=== PATIENT | female | born 1990 | race Caucasian/White ===

== ENCOUNTER 2023-09-21 16:09 | Outpatient (OUT) | payer OTHER, SELFPAY ==
[2023-09-21 17:17] LABS: HCG Quantitative 45248 mIU/mL
== END 2023-09-21 16:10 | disposition home or self-care (01) ==
PROVIDERS: PCP Family Medicine; Visit Provider Obstetrics & Gynecology
DX: N92.6 Irregular menstruation, unspecified (principal)
CPT/HCPCS: 36415; 84702

== ENCOUNTER 2023-09-23 08:57 | Outpatient (OUT) | payer OTHER, SELFPAY ==
--- NOTE | 2023-09-23 09:02 | US_ITS ---
[address] [address] Patient Name: LILIANA GO MRN: [id number] date: 1990 Sex: F Assigned Patient Location: [facility] Current Patient Location: [facility] Accession/Order Number: [id number] Exam Date: 09/23/2023 09:02 Report Date: 09/23/2023 10:34 At the request of: IVANIA RENEE Procedure: US OB <= 14 weeks fetus EXAMINATION: US OB <= 14 weeks fetus HISTORY: MISSED MENSES COMPARISON: No relevant comparison available. FINDINGS: Transabdominal images Dotson intrauterine gestation Gestational sac: Normal morphology, 5.04 cm 20 weeks 5 days CRL: 4.9 cm, 11 weeks 5 days Yolk sac: 4.5 mm Heart rate: 57 bpm The uterus is normal, anteverted, anteflexed The right ovary is normal. The left ovary is not visualized Clinical age: Unknown Ultrasound age: 11 weeks 5 days Ultrasound SHANELLE: 04/08/2024 US/US OB <= 14 weeks fetus IMPRESSION: Dotson intrauterine gestation measuring 11 weeks 5 days Electronically authenticated by: MICHEAL ZAPATA Date: 09/23/2023 10:34
== END 2023-09-23 08:58 | disposition home or self-care (01) ==
LOC: NOMS 08:58
PROVIDERS: PCP Family Medicine; Visit Provider Obstetrics & Gynecology
DX: Z34.91 Encounter for supervision of normal pregnancy, unspecified, first trimester (principal)
CPT/HCPCS: 76801

== ENCOUNTER 2023-11-09 20:05 | Outpatient (REF) | payer OTHER, SELFPAY | END 2023-11-09 20:06 | disposition home or self-care (01) | LOC: LAB 20:05 | PROVIDERS: PCP Family Medicine; Visit Provider Obstetrics & Gynecology | DX: Z01.419 Encounter for gynecological examination (general) (routine) without abnormal findings (principal) | CPT/HCPCS: 87624; 88175 ==

== ENCOUNTER 2023-12-04 15:11 | Outpatient (OUT) | payer OTHER, SELFPAY ==
--- NOTE | 2023-12-04 15:17 | US_ITS ---
[address] [address] Patient Name: LILIANA GO MRN: [id number] date: 1990 Sex: F Assigned Patient Location: [place] Current Patient Location: Accession/Order Number: [id number] Exam Date: 12/04/2023 15:20 Report Date: 12/07/2023 07:34 At the request of: IVANIA RENEE Procedure: US OB anatomy EXAMINATION: US OB anatomy, US OB cervical length HISTORY: ANATOMIC SURVEY Z36.89 COMPARISON: No relevant comparison available. TECHNIQUE: Transabdominal sonographic examination was performed for obstetrical and evaluation. FINDINGS: Number: 1 Heart Rate: 155.17 bpm H.B. /min Amniotic Fluid Volume: Subjectively normal position: Transverse presentation, variable lie Placental Location: Posterior. Grade 1. Cervix Length: 5.5 cm , closed Normal anatomy: Cerebellum, posterior fossa, nose, lips, orbits, four-chamber heart, RVOT, LVOT, diaphragm, stomach, kidneys, abdominal cord insertion, bladder, umbilical arteries, three-vessel cord, spine, extremities Suboptimal anatomy: Lateral ventricles BIOMETRY: BPD: 5.00 cm; 21 weeks 1 day; 16.60 % HC: 18.82 cm; 21 weeks 1 day; 9.60 % AC: 16.28 cm; 21 weeks 2 days; 22.50 % FL: 3.53 cm; 21 weeks 1 day; 15.60 % EFW:410.07 g; 13.30 %, 14 ounces FL/AC: 21.72 FL/BPD: 70.72 HC/AC: 1.16 GESTATIONAL AGE: Age by EDC: 22 weeks 0 days SHANELLE by EDC: 2024-04-08 Age by current US: 21 weeks 1 day SHANELLE by current US: 2024-04-14 US/US OB anatomy IMPRESSION: Suboptimal visualization of the lateral ventricles, otherwise normal anatomy scan Closed cervix measuring 5.5 cm in length *Reference: [facility] Practice Guideline for the performance of Obstetric Ultrasound Examinations, December 14, 2006. Electronically authenticated by: MICHEAL ZAPATA Date: 12/07/2023 07:34
--- OUTSIDE RECORDS SUMMARY | 2023-12-04 15:31 | XMS_ITS | CCD ---
Author Organization [facility] InformCounts include 234 beds at the [facility] Care Team Providers Care Product Safety Administrator Name Role Phone Lul Ocampo Unavailable KARNIIK ., DR WIGGINS Consulting Unavailabl e KARASIK ., DR WIGGINS Attending Unavailabl e MISC, DR MOSER Primary Care Unavailable KARASIK ., DR WIGGINS Admitting Unavailabl e KARASIK ., DR WIGGINS Consulting Unavailabl e KARASIK ., DR WIGGINS Attending Unavailabl e MISC, DR MOSER Primary Care Unavailable KARASIK ., DR WIGGINS Admitting Unavailabl e ZIEBER, DR PERLA Seaman Consulting Unavailable KARASIK ., DR WIGGINS Consulting Unavailabl e MISC, DR MOSER Primary Care Unavailable KARASIK ., DR WIGGINS Attending Unavailabl e KARASIK ., DR WIGGINS Admitting Unavailabl e KARASIK ., DR WIGGINS Attending Unavailabl e KARASIK ., DR WIGGINS Admitting Unavailabl e REQUEST, DR NONE LISTED Primary Care Unavaila ble KARASIK ., DR WIGGINS Consulting Unavailabl e KARASIK ., DR WIGGINS Attending Unavailabl e KARASIK ., DR WIGGINS Admitting Unavailabl e MISC, DR OMSER Primary Care Unavailable ZIEBER, DR PERLA Seaman Consulting Unavailable KARASIK ., DR WIGGINS Consulting Unavailabl e KARASIK ., DR WIGGINS Attending Unavailabl e KARASIK ., DR WIGGINS Admitting Unavailabl e MISC, DR MOSER Primary Care Unavailable JODI, DR MICHEAL Samuels Consulting Unavailable KARASIK ., DR WIGGINS Attending Unavailabl e KARASIK ., DR WIGGINS Admitting Unavailabl e MISC, DR MOSER Primary Care Unavailable KARASIK ., DR WIGGINS Consulting Unavailabl e JODI, DR MICHEAL Samuels Consulting Unavailable LONA JOVEL Admitting Unavailable REQUEST, DR NONE LISTED Primary Care Unavaila ble KARASIK ., DR WIGGINS Consulting UnavailLONA Murphy Attending Unavailable WEST, DR MICHEAL Samuels Consulting Unavailable LONA JOVEL Consulting Unavailable KARASIK ., DR WIGGNIS Attending Unavailabl e KARASIK ., DR WIGGINS Admitting Unavailabl e REQUEST, DR BUCKLEY LISTED Primary Care Unavaila ble KARASIK ., DR WIGGINS Consulting Unavailabl e YFN DYER Consulting Unavailable KARASIK ., DR WIGGINS Procedure Practitioner Kathy vailable KARASIK ., DR WIGGINS Consulting Unavailabl e MISC, DR MOSER Primary Care Unavailable KARASIK ., DR WIGGINS Attending Unavailabl e KARASIK ., DR WIGGINS Admitting Unavailabl e ZIEBER, DR PERLA Seaman Consulting Unavailable KARASIK ., DR WIGGINS Consulting Unavailabl e KARASIK ., DR WIGGINS Admitting Unavailabl e MISC, DR MOSER Primary Care Unavailable KARASIK ., DR WIGGINS Attending Unavailabl e KARASIK ., DR WIGGINS Consulting Unavailabl e KARASIK ., DR WIGGINS Admitting Unavailabl e KARASIK ., DR WIGGINS Attending Unavailabl e MISC, DR MOSER Primary Care Unavailable Daniel Comer DO Primary Care Provider YANICK BOLIVAR Attending Unavailab le SWATHI-NOSSEKYANICK Attending Unavailab ESTEFANI Fine Attending Unavailable SWATHI-NOSSEK, YANICK M Referring Unavailab le SWATHI-NOSSEK, YANICK M Attending Unavailab le SWATHI-NOSSEK, YANICK Milton Attending Unavailab le SWATHI-NOSSEK, YANICK M Attending Unavailab le IVANIA RENEE Attending Unavailable Allergies Allergy Classification Reported Allergen(s) Allergy Type Date of Onset Reaction(s) Facility (1 source) banana allergenic extract Drug Allergy hives [facility] Other (4 sources) Cat dander Drug allergy 03-17-2023 Unknown [facility] Other (1 source) Banana Extract Drug Allergy 03-16-2004 [facility] Repository (1 source) Latex Drug allergy (disorder) 03-16-2009 [facility] (1 source) kiwi Drug allergy (disorder) 03-16-2004 [facility]ository (3 sources) Banana Extract Drug Allergy 08-04-2019 Unknown [facility] (3 sources) Octacosanol Drug Allergy 08-04-2019 Unknown [facility] Medications Current Medications Medication Drug Class(es) Dates Sig (Normalized) Sig (Original) eszopiclone 2 mg oral tablet (3 sources) Start: 03-17-2023 eszopiclone (Lunesta) 2 MG tablet Indications: Insomnia, unspecified type Take 1 tablet (2 mg) by mouth as needed at bedtime for sleep Take immediately before bedtime 30 tablet 0 03/17/2023 Active hydrOXYzine pamoate 25 mg oral capsule (1 source) Antihistamine take 1 capsule by mouth every eight hours Vistaril 25 MG 1 capsule as needed Orally every 8 hrs Active norethindrone 0.35 mg oral tablet (3 sources) Start: 07-01-2022 take 1 tablet by mouth in the morning norethindrone (Micronor) 0.35 MG tablet Take 1 tablet by mouth in the morning. 0 07/01/2022 Active serdexmethylphen-de xmethylphenidate (Azstarys) 39.2-7.8 MG capsule (2 sources) Start: 04-29-2023 End: 05-29-2023 take 1 capsule by mouth in the morning serdexmethylphen-d exmethylphenidate (Azstarys) 39.2-7.8 MG capsule Indications: Attention deficit hyperactivity disorder (ADHD), predominantly inattentive type (CMS/HCC) Take 1 capsule by mouth in the morning. Do not crush, chew, or split.. 30 capsule 0 04/29/2023 05/29/2023 Active sertraline 25 mg oral tablet (6 sources) Serotonin Reuptake Inhibitor Start: 03-17-2023 End: 04-28-2024 take 1 tablet by mouth in the morning sertraline (Zoloft) 25 MG tablet Indications: Anxiety Take 1 tablet (25 mg) by mouth in the morning. 30 tablet 1 04/29/2023 04/28/2024 Active take 1 tablet by valeriy th every twenty-four hours Zoloft 25 MG 1 tablet Orally Once a day Active Problems Active Problems Problem Classification Problem Date Documented Date Episodic/Chronic Anxiety disorders (2 sources) Anxiety; Translations: [Anxiety disorder, unspecified] 04-29-2023 Chronic Attention-deficit, conduct, and disruptive behavior disorders (2 sources) Attention deficit hyperactivity disorder, predominantly inattentive type; Translations: [Attention-deficit hyperactivity disorder, predominantly inattentive type] 04-29-2023 Chronic Immunizations and screening for infectious disease (3 sources) Encounter for screening for human papillomavirus (HPV); Translations: [Encounter for screening for infections with a predominantly sexual mode of transmission] Onset: 10-25-2021 Episodic Menstrual disorders (4 sources) Irregular menstruation, unspecified; Translations: [IRREGULAR MENSTRUATION UNSPECIFIED] Onset: 10-24-2021 Chronic Other complications of ; puerperium affecting management of mother (1 source) Labor and delivery complicated by meconium in amniotic fluid; Translations: [LABOR AND DEL COMP MEC AMNIOTIC FLUID] Onset: 05-27-2022 Episodic Other complications of (4 sources) Other specified related conditions, third trimester; Translations: [OTH SPEC PREG RELATED COND 3RD TRI] Onset: 05-12-2022 Episodic Other nervous system disorders (1 source) Carpal tunnel syndrome of left wrist; Translations: [Carpal tunnel syndrome, left upper limb] Chronic Other nervous system disorders (1 source) Carpal tunnel syndrome, left upper limb; Translations: [Left carpal tunnel syndrome G56.02] Onset: 12-07-2020 Resolved: 12-07-2020 Chronic Other and delivery including normal (10 sources) Single live ; Translations: [Encounter for supervision of normal , unspecified, third trimester] Onset: 10-16-2021 Episodic Other screening for suspected conditions (not mental disorders or infectious disease) (9 sources) Encounter for screening for malignant neoplasm of cervix; Translations: [Encounter for other specified screening] Onset: 10-25-2021 Episodic Prolonged (4 sources) Post-term ; Translations: [POST-TERM ] Onset: 05-19-2022 Episodic Residual codes; unclassified (1 source) 41 weeks gestation of ; Translations: [41 WEEKS GESTATION OF ] Onset: 05-27-2022 Episodic Residual codes; unclassified (1 source) 40 weeks gestation of ; Translations: [40 WEEKS GESTATION OF ] Onset: 05-19-2022 Episodic Screening and history of mental health and substance abuse codes (1 source) Personal history of nicotine dependence; Translations: [PERSONAL HISTORY OF NICOTINE DEPEND] Onset: 05-27-2022 Episodic Past or Other Problems Problem Classification Problem Date Documented Date Episodic/Chronic Fracture of upper limb (1 source) Other extraarticular fracture of lower end of left radius, subsequent encounter for closed fracture with routine healing; Translations: [Other closed extra-articular fracture of distal end of left radius with routine healing, subsequent encounter S52.552D] Onset: 12-07-2020 Resolved: 12-07-2020 Episodic Fracture of upper limb (1 source) Other extraarticular fracture of lower end of right radius, subsequent encounter for closed fracture with routine healing; Translations: [Other closed extra-articular fracture of distal end of right radius with routine healing, subsequent encounter S52.551D] Onset: 12-07-2020 Resolved: 12-07-2020 Episodic Residual codes; unclassified (1 source) Other specified postprocedural states; Translations: [Other specified postprocedural states Z98.890] Onset: 12-07-2020 Resolved: 12-07-2020 Episodic Results Test Name Value Interpretation Reference Range Facility CBC AUTO DIFFon 05-20-2022 BASO # 0.0 103/ul Normal 0.0-0.1 [facility] Comment on above: Performed By: #### C BC #### [facility] [address] [place] [address] Dr. Helga Salazar Basophils/100 WBC (Bld) 0.2 % Normal 0.2-2.0 [facility] Comment on above: Performed By: #### C BC #### [facility] [address] [place] [address] Dr. Helga Salazar EO # 0.0 103/ul Normal 0.0-0.7 [facility] Comment on above: Performed By: #### C BC #### [facility] [address] [place] [address] Dr. Helga Salazar Eosinophils/100 WBC (Bld) 0.1 % Critically low 0.9-7.0 [facility] Comment on above: Performed By: #### C BC #### [facility] [address] [place] [address] Dr. Helga Salazar Erythrocyte distribution width (RBC) [Ratio] 16.0 % Critically high 11.0-15.0 [facility] Comment on above: Performed By: #### C BC #### [facility] [address] [place] [address] Dr. Helga Salazar Hematocrit (Bld) [Volume fraction] 30.1 % Critically low 36.0-48.0 [facility] Comment on above: Performed By: #### C BC #### [facility] [address] [place] [address] Dr. Helga Salazar Hemoglobin (Bld) [Mass/Vol] 10.0 g/dL Critically low 12.0-16.0 [facility] Comment on above: Performed By: #### C BC #### [facility] [address] [place] [address] Dr. Helga Salazar IG # 0.06 10e3/ul Critically high 0.00-0.03 [facility] Comment on above: Performed By: #### C BC #### [facility] [address] [place] [address] Dr. Helga Salazar IG % 0.5 % Normal 0.0-0.5 [facility] Comment on above: Performed By: #### C BC #### [facility] [address] [place] [address] Dr. Helga Salazar LYMPH # 1.2 103/ul Normal 1.2-3.8 [facility] Comment on above: Performed By: #### C BC #### [facility] [address] [place] [address] Dr. Helga Salazar Lymphocytes/100 WBC (Bld) 10.5 % Critically low 20.5-60.0 [facility] Comment on above: Performed By: #### C BC #### [facility] [address] [place] [address] Dr. Helga Salazar MANUAL DIFF REQ NO Normal [facility] Comment on above: Performed By: #### C BC #### [facility] [address] [place] [address] Dr. Helga Salazar MCH (RBC) [Entitic mass] 27.9 pg Normal 26.7-34.0 [facility] Comment on above: Performed By: #### C BC #### [facility] [address] [address] [address] Helga Salazar MCHC (RBC) [Mass/Vol] 33.2 g/dL Normal 29.9-35.2 [facility] Comment on above: Performed By: #### C BC #### [facility] [address] [place] [address] Dr. Helga Salazar MCV (RBC) [Entitic vol] 84.1 fL Normal 81.0-99.0 [facility] Comment on above: Performed By: #### C BC #### [facility] [address] [place] [address] Dr. Helga Salazar MONO # 0.9 103/ul Critically high 0.3-0.8 [facility] Comment on above: Performed By: #### C BC #### [facility] [address] [place] [address] Dr. Helga Salazar Monocytes/100 WBC (Bld) 8.1 % Normal 1.7-12.0 [facility] Comment on above: Performed By: #### C BC #### [facility] [address] [place] [address] Dr. Helga Salazar NEUT # 9.4 103/ul Critically high 1.4-6.5 [facility] [place] Comment on above: Performed By: #### C BC #### [facility] [address] [place] [address] Dr. Helga Salazar Neutrophils/100 WBC (Bld) 80.6 % Critically high 43.0-75.0 [facility] Comment on above: Performed By: #### C BC #### [facility] [address] [place] [address] Dr. Helga Salazar Platelet mean volume (Bld) [Entitic vol] 8.8 fL Critically low 9.5-13.5 [facility] Comment on above: Performed By: #### C BC #### [facility] [address] [place] [address] Dr. Helga Salazar PLT 206 103/ul Normal 150-450 [facility] Comment on above: Performed By: #### C BC #### [facility] [address] [place] [address] Dr. Helga Salazar RBC 3.58 106/ul Critically low 4.20-5.40 [facility] Comment on above: Performed By: #### C BC #### [facility] [address] [address] [address] Helga Salazar WBC 11.6 103/ul Critically high 4.0-11.0 [facility] Comment on above: Performed By: #### C BC #### [facility] [address] [place] [address] Dr. Helga Salazar CBC AUTO DIFFon 05-19-2022 BASO # 0.0 103/ul Normal 0.0-0.1 [facility] Comment on above: Performed By: #### A 1C #### [facility] [address] [place] [address] Dr. Helga Salazar Basophils/100 WBC (Bld) 0.2 % Normal 0.2-2.0 [facility] Comment on above: Performed By: #### A 1C #### [facility] [address] [place] [address] Dr. Helga Salazar EO # 0.0 103/ul Normal 0.0-0.7 [facility] Comment on above: Performed By: #### A 1C #### [facility] [address] [place] [address] Dr. Helga Salazar Eosinophils/100 WBC (Bld) 0.0 % Critically low 0.9-7.0 [facility] Comment on above: Performed By: #### A 1C #### [facility] [address] [place] [address] Dr. Helga Salazar Erythrocyte distribution width (RBC) [Ratio] 15.9 % Critically high 11.0-15.0 [facility] Comment on above: Performed By: #### A 1C #### [facility] [address] [place] [address] Dr. Helga Salazar Hematocrit (Bld) [Volume fraction] 33.7 % Critically low 36.0-48.0 [facility] Comment on above: Performed By: #### A 1C #### [facility] [address] [place] [address] Dr. Helga Salazar Hemoglobin (Bld) [Mass/Vol] 11.5 g/dL Critically low 12.0-16.0 [facility] Comment on above: Performed By: #### A 1C #### [facility] [address] [place] [address] Dr. Helga Salazar IG # 0.07 10e3/ul Critically high 0.00-0.03 [facility] Comment on above: Performed By: #### A 1C #### [facility] [address] [place] [address] Dr. Helga Salazar IG % 0.6 % Critically high 0.0-0.5 [facility] Comment on above: Performed By: #### A 1C #### [facility] [address] [place] [address] Dr. Helga Salazar LYMPH # 0.9 103/ul Critically low 1.2-3.8 [facility] Comment on above: Performed By: #### A 1C #### [facility] [address] [place] [address] Dr. Helga Salazar Lymphocytes/100 WBC (Bld) 8.1 % Critically low 20.5-60.0 [facility] Comment on above: Performed By: #### A 1C #### [facility] [address] [place] [address] Dr. Helga Salazar MANUAL DIFF REQ NO Normal [facility] Comment on above: Performed By: #### A 1C #### [facility] [address] [place] [address] Dr. Helga Salazar MCH (RBC) [Entitic mass] 28.3 pg Normal 26.7-34.0 [facility] Comment on above: Performed By: #### A 1C #### [facility] [address] [place] [address] Dr. Helga Salazar MCHC (RBC) [Mass/Vol] 34.1 g/dL Normal 29.9-35.2 [facility] Comment on above: Performed By: #### A 1C #### [facility] [address] [address] [address] Helga Salazar MCV (RBC) [Entitic vol] 82.8 fL Normal 81.0-99.0 [facility] Comment on above: Performed By: #### A 1C #### [facility] [address] [address] [address] Helga Salazar MONO # 0.6 103/ul Normal 0.3-0.8 [facility] Comment on above: Performed By: #### A 1C #### [facility] [address] [address] [address] Helga Salazar Monocytes/100 WBC (Bld) 5.6 % Normal 1.7-12.0 [facility] Comment on above: Performed By: #### A 1C #### [facility] [address] [place] [address] Dr. Helga Salazar NEUT # 9.7 103/ul Critically high 1.4-6.5 [facility] Comment on above: Performed By: #### A 1C #### [facility] [address] [place] [address] Dr. Helga Salazar Neutrophils/100 WBC (Bld) 85.5 % Critically high 43.0-75.0 [facility] Comment on above: Performed By: #### A 1C #### [facility] [address] [address] [address] Helga Salazar Platelet mean volume (Bld) [Entitic vol] 8.6 fL Critically low 9.5-13.5 [facility] Comment on above: Performed By: #### A 1C #### [facility] [address] [place] [address] Dr. Helga Salazar PLT 198 103/ul Normal 150-450 [facility] Comment on above: Performed By: #### A 1C #### [facility] [address] [place] [address] Dr. Helga Salazar RBC 4.07 106/ul Critically low 4.20-5.40 [facility] Comment on above: Performed By: #### A 1C #### [facility] [address] [address] [address] Helga Salazar WBC 11.4 103/ul Critically high 4.0-11.0 [facility] Comment on above: Performed By: #### A 1C #### [facility] [address] [place] [address] Dr. Helga Salazar DRUG SCREEN RAPID (URINE)on 05-19-2022 AMP Negative Normal NEGATIVE [facility] Comment on above: Performed By: #### D RUGRPD #### [facility] [address] [place] [address] Dr. Helga Salazar BAR Negative Normal NEGATIVE [facility] Comment on above: Performed By: #### D RUGRPD #### [facility] [address] [place] [address] Dr. Helga Salazar BUP Negative Normal NEGATIVE [facility] Comment on above: Performed By: #### D RUGRPD #### [facility] [address] [place] [address] Dr. Helga Salazar BZO Negative Normal NEGATIVE [facility] Comment on above: Performed By: #### D RUGRPD #### [facility] [address] [place] [address] Dr. Helga Salazar TONY Negative Normal NEGATIVE [facility] Comment on above: Performed By: #### D RUGRPD #### [facility] [address] [place] [address] Dr. Helga Salazar CUT-OFFS SEE BELOW Normal [facility] Comment on above: Result Comment: AMP (Amphetamine): 500ng/mL, BAR (Barbituates): 200 ng/mL, BZO (Benzodiazepines): 150 ng/mL, BUP (Buprenorphine): 10 ng/mL, TONY (Cocaine): 150 ng/mL, mAMP (Methamphetamine): 500 ng/mL, MTD (Methadone): 200 ng/mL, OPI (Opiates): 100 ng/mL, OXY (Oxycodone): 100 ng/mL, PCP (Phencyclidine): 25 ng/mL, PPX (Propoxyphene): 300 ng/mL, THC (Cannabinoids): 50 ng/mL, TCA (Trycyclic Antidepressants): 300 ng/mL Performed By: #### D RUGRPD #### [facility] [address] [place] [address] Dr. Helga Salazar DRUG CUT HEADER DRUG CLASS TEST SYSTEM CUT-OFF CONCENTRATIONS ARE FOLLOWS: Normal [facility] Comment on above: Performed By: #### D RUGRPD #### [facility] [address] [place] [address] Dr. Helga Salazar mAMP Negative Normal NEGATIVE [facility] Comment on above: Performed By: #### D RUGRPD #### [facility] [address] [place] [address] Dr. Helga Salazar MTD Negative Normal NEGATIVE [facility] Comment on above: Performed By: #### D RUGRPD #### [facility] [address] [place] [address] Dr. Helga Salazar OPI Negative Normal NEGATIVE [facility] Comment on above: Performed By: #### D RUGRPD #### [facility] [address] [place] [address] Dr. Helga Salazar OXY Negative Normal NEGATIVE [facility] Comment on above: Performed By: #### D RUGRPD #### [facility] [address] [place] [address] Dr. Helga Salazar PCP Negative Normal NEGATIVE [facility] Comment on above: Performed By: #### D RUGRPD #### [facility] [address] [place] [address] Dr. Helga Salazar PPX Negative Normal NEGATIVE [facility] Comment on above: Performed By: #### D RUGRPD #### [facility] [address] [place] [address] Dr. Helga Salazar TCA Negative Normal NEGATIVE [facility] Comment on above: Performed By: #### D RUGRPD #### [facility] [address] [place] [address] Dr. Helga Salazar THC Negative Normal NEGATIVE [facility] Comment on above: Performed By: #### D RUGRPD #### [facility] [address] [address] [address] Helga Salazar TYPE AND SCREENon 05-19-2022 TYPE AND SCREEN Negative Normal [facility] Comment on above: Performed By: #### T NS #### [facility] [address] [place] [address] Dr. Helga Salazar US PREG AMNIOTIC FLUID VOLUM Mor 05-17-2022 US PREG AMNIOTIC FLUID VOLUME EXAMINATION: US PREG AMNIOTIC FLUID VOLUME HISTORY: Post-term COMPARISON: No relevant comparison available. TECHNIQUE: Limited sonographic examination for amniotic fluid volume FINDINGS: position: Cephalic presentation, longitudinal lie Amniotic fluid volume: 18.3 cm, normal range 6.3 to 22.3 cm Largest fluid pocket: 4.7 cm Heart rate: 132 beats minute Gestational age: 40 weeks 5 days IMPRESSION: Amniotic fluid volume Electronically authenticated by: MICHEAL ZAPATA Date: 2022-05-17 18:25 Normal [facility] US PREG AMNIOTIC FLUID VOLUM Mor 05-15-2022 US PREG AMNIOTIC FLUID VOLUME EXAMINATION: US PREG AMNIOTIC FLUID VOLUME HISTORY: Post-term COMPARISON: No relevant comparison available. TECHNIQUE: Limited sonographic examination for amniotic fluid volume FINDINGS: position: Cephalic presentation, longitudinal lie Amniotic fluid volume: 14.2 cm, normal 6.3 to 23 cm Largest fluid pocket: 7.1 cm Heart rate: 124 beats minute Gestational age: 40 weeks 3 days IMPRESSION: Normal amniotic fluid volume Electronically authenticated by: MICHEAL ZAPATA Date: 2022-05-15 15:41 Normal [facility] US PREG BIOPHY W NON STRESSo n 05-13-2022 US PREG BIOPHY W NON STRESS EXAMINATION: US PREG BIOPHY W NON STRESS HISTORY: Post-term COMPARISON: No relevant comparison available. TECHNIQUE: Ultrasound biophysical profile was performed in the radiology department. FINDINGS: BREATHING MOVEMENTS: 2.0 GROSS BODY MOVEMENTS: 2.0 TONE: 2.0 QUALITATIVE AMNIOTIC FLUID VOLUME: 2.0 PRESENTATION: Cephalic HEART RATE: 130.4 bpm H.B./min AMNIOTIC FLUID VOLUME: 19.2 cm cm GESTATIONAL AGE: 40 weeks 1 days CONCLUSION: Total biophysical profile score: 8.0 Electronically authenticated by: MICHEAL ZAPATA Date: 2022-05-13 16:00 Normal [facility] US PREG BIOPHY W NON STRESSo n 05-12-2022 US PREG BIOPHY W NON STRESS EXAMINATION: US PREG BIOPHY W NON STRESS HISTORY: Patient currently COMPARISON: Ultrasound anatomy 12/25/2021 FINDINGS: BREATHING MOVEMENTS: 0.0 GROSS BODY MOVEMENTS: 2.0 TONE: 2.0 QUALITATIVE AMNIOTIC FLUID VOLUME: 2.0 PRESENTATION: Cephalic HEART RATE: 139.2 bpm bpm. AMNIOTIC FLUID VOLUME: 15.5 cm GESTATIONAL AGE: 40 weeks 0 days CONCLUSION: Total biophysical profile score 6.0. Electronically authenticated by: PERLA SALEH Date: 2022-05-12 16:16 Normal [facility] GROUP B STREP CULTUREon S. agalactiae Ag Ql (Unsp spec) Culture Observations: NEGATIVE FOR GROUP B STREPTOCOCCUS. Normal [facility] Comment on above: Performed By: #### C BC #### [facility] [address] [address] [address] Helga Salazar PAP ACOG PANEL 2: 30 to 65on 03-12-2022 . . Normal [facility] Comment on above: Result Comment: Perf ormed at: [facility] Performed By: #### [id number] #### [facility] [address] [address] [address] Helga Salazar Age Gdln ACOG Testing - [facility] [place] [facility] Comment on above: Performed By: #### [id number] #### [facility] [address] [address] [address] Helga Salazar DIAGNOSIS: Comment Normal [facility] Comment on above: Result Comment: NEGA TIVE FOR INTRAEPITHELIAL LESION OR MALIGNANCY. THIS SPECIMEN WAS RESCREENED PART OF OUR STUDENT ACCOUNTS MANAGER PROGRAM. Performed at: [facility] Performed By: #### [id number] #### [facility] [address] [address] [address] Helga Salazar HPV Aptima Negative Normal Negative [facility] Comment on above: Result Comment: This nucleic acid amplification test detects fourteen high-risk HPV types (16,18,31,33,35,39,45,51,52,56,58,59,66,68) without differentiation. Performed at: =G Performed By: #### [id number] #### [facility] [address] [address] [address] Helga Salazar HPV Genotype Reflex Comment Normal [facility] Comment on above: Result Comment: Crit jonatan not met, HPV Genotype not performed. Performed at: [facility] Performed By: #### [id number] #### [facility] [address] [place] [address] Dr. Helga Salazar Methodology: Comment Normal [facility] Comment on above: Result Comment: This liquid based ThinPrep(R) pap test was screened with the use of an image guided system. Performed at: [facility] Performed By: #### [id number] #### [facility] [address] [place] [address] Dr. Helga Salazar Note: Comment Normal [facility] Comment on above: Result Comment: The Pap smear is a screening test designed to aid in the detection of premalignant and malignant conditions of the uterine cervix. It is not a diagnostic procedure and should not be used as the sole means of detecting cervical cancer. Both false-positive and false-negative reports do occur. . Performed at: [facility] Performed By: #### [id number] #### [facility] [address] [place] [address] Dr. Helga Salazar Performed by: Comment Normal [facility] [place] [facility] Comment on above: Result Comment: Saji Ornelas, Upper Leather Sorter (ASCP) Performed at: [facility] Performed By: #### [id number] #### [facility] [address] [place] [address] Dr. Helga Salazar QC reviewed by: Comment Normal [facility] Comment on above: Result Comment: Jayson Mcgovern Sr, Upper Leather Sorter (ASCP) Performed at: [facility] Performed By: #### [id number] #### [facility] [address] [place] [address] Dr. Helga Salazar Specimen adequacy: Comment Normal [facility] Comment on above: Result Comment: Sati sfactory for evaluation. No endocervical component is identified. The absence of an endocervical component was confirmed by an additional screening evaluation. Performed at: [facility] Performed By: #### [id number] #### [facility] [address] [place] [address] Dr. Helga Salazar CHLAMYDIA/GONOCOCCUS SABRINA (SW AB/URINE/PAPon 03-05-2022 Chlamydia trachomatis, SABRINA Negative Normal Negative [facility] Comment on above: Performed By: #### C T/NGNA #### [facility] [address] [place] [address] Dr. Helga Salazar Neisseria gonorrhoeae, SABRINA Negative Normal Negative [facility] Comment on above: Performed By: #### C T/NGNA #### [facility] [address] [place] [address] Dr. Helga Salazar CBC AUTO DIFFon 02-20-2022 BASO # 0.0 103/ul Normal 0.0-0.1 [facility] Comment on above: Performed By: #### C BC #### [facility] [address] [place] [address] Dr. Helga Salazar Basophils/100 WBC (Bld) 0.2 % Normal 0.2-2.0 [facility] Comment on above: Performed By: #### C BC #### [facility] [address] [place] [address] Dr. Helga Salazar EO # 0.0 103/ul Normal 0.0-0.7 [facility] Comment on above: Performed By: #### C BC #### [facility] [address] [place] [address] Dr. Helga Salazar Eosinophils/100 WBC (Bld) 0.3 % Critically low 0.9-7.0 [facility] Comment on above: Performed By: #### C BC #### [facility] [address] [place] [address] Dr. Helag Salazar Erythrocyte distribution width (RBC) [Ratio] 12.7 % Normal 11.0-15.0 [facility] Comment on above: Performed By: #### C BC #### [facility] [address] [place] [address] Dr. Helga Salazar Hematocrit (Bld) [Volume fraction] 31.4 % Critically low 36.0-48.0 [facility] Comment on above: Performed By: #### C BC #### [facility] [address] [place] [address] Dr. Helga Salazar Hemoglobin (Bld) [Mass/Vol] 10.1 g/dL Critically low 12.0-16.0 [facility] Comment on above: Performed By: #### C BC #### [facility] [address] [place] [address] Dr. Helga Salazar IG # 0.06 10e3/ul Critically high 0.00-0.03 [facility] Comment on above: Performed By: #### C BC #### [facility] [address] [place] [address] Dr. Helga Salazar IG % 0.6 % Critically high 0.0-0.5 [facility] Comment on above: Performed By: #### C BC #### [facility] [address] [place] [address] Dr. Helga Salazar LYMPH # 0.9 103/ul Critically low 1.2-3.8 [facility] Comment on above: Performed By: #### C BC #### [facility] [address] [place] [address] Dr. Helga Salazar Lymphocytes/100 WBC (Bld) 9.4 % Critically low 20.5-60.0 [facility] Comment on above: Performed By: #### C BC #### [facility] [address] [place] [address] Dr. Helga Salazar MANUAL DIFF REQ NO Normal [facility] Comment on above: Performed By: #### C BC #### [facility] [address] [place] [address] Dr. Helga Salazar MCH (RBC) [Entitic mass] 28.1 pg Normal 26.7-34.0 [facility] Comment on above: Performed By: #### C BC #### [facility] [address] [place] [address] Dr. Helga Salazar MCHC (RBC) [Mass/Vol] 32.2 g/dL Normal 29.9-35.2 [facility] Comment on above: Performed By: #### C BC #### [facility] [address] [address] [address] Helga Salazar MCV (RBC) [Entitic vol] 87.5 fL Normal 81.0-99.0 [facility] Comment on above: Performed By: #### C BC #### [facility] [address] [address] [address] Helga Salazar MONO # 0.6 103/ul Normal 0.3-0.8 [facility] Comment on above: Performed By: #### C BC #### [facility] [address] [address] [address] Helga Salazar Monocytes/100 WBC (Bld) 6.2 % Normal 1.7-12.0 [facility] Comment on above: Performed By: #### C BC #### [facility] [address] [place] [address] Dr. Helga Salazar NEUT # 7.7 103/ul Critically high 1.4-6.5 [facility] Comment on above: Performed By: #### C BC #### [facility] [address] [place] [address] Dr. Helga Salazar Neutrophils/100 WBC (Bld) 83.3 % Critically high 43.0-75.0 [facility] Comment on above: Performed By: #### C BC #### [facility] [address] [address] [address] Helga Salazar Platelet mean volume (Bld) [Entitic vol] 8.2 fL Critically low 9.5-13.5 [facility] Comment on above: Performed By: #### C BC #### [facility] [address] [place] [address] Dr. Helga Salazar PLT 247 103/ul Normal 150-450 [facility] Comment on above: Performed By: #### C BC #### [facility] [address] [address] [address] Helga Salazar RBC 3.59 106/ul Critically low 4.20-5.40 [facility] Comment on above: Performed By: #### C BC #### [facility] [address] [place], [place] [address] Dr. Helga Salazar WBC 9.3 103/ul Normal 4.0-11.0 [facility] Comment on above: Performed By: #### C BC #### [facility] [address] [place], [place] [address] Dr. Helga Salazar GLUCOSE - 1HRon 02-20-2022 Glucose [Mass/Vol] 114 mg/dL Critically high 74-106 [facility] Comment on above: Performed By: #### A 1C #### [facility] [address] [place], [place] [address] Dr. Helga Salazar US PREG ANATOMY SINGLEon US PREG ANATOMY SINGLE EXAMINATION: US PREG ANATOMY SINGLE HISTORY: anatomy study COMPARISON: No relevant comparison available. TECHNIQUE: Transabdominal sonographic examination was performed for obstetrical and evaluation. FINDINGS: Number: 1 Heart Rate: Present (rate not recorded). Amniotic Fluid Volume: Subjectively normal Placental Location: Posterior with lower margin 4.0 cm from os. Cervix Length: 4.6 cm, closed. ANATOMY: Normal Structures -cerebellum, choroid plexus, cisterna magna, lateral cerebral ventricles, orbits, midline falx, hard palate, four-chamber heart, RVOT, LVOT, stomach, kidneys, bladder, umbilical cord insertion into abdomen, three-vessel cord, cervical spine, thoracic spine, lumbar spine, sacral spine, right upper extremity, left upper extremity, right lower extremity, left lower extremity. SUBOPTIMALLY SEEN: None ABNORMALITIES: None BIOMETRY: BPD: 4.8 cm , 20 weeks 3 days HC: 18.1 cm , 20 weeks 4 days AC: 16.7 cm , 21 weeks 5 days FL: 2.5 cm , 21 weeks 2 days EFW:415.4 grams; 93% by LMP; 63% by AUA FL/AC: 0.2 FL/BPD: 0.7 HC/AC: 1.1 GESTATIONAL AGE: Age by EDC: 20 weeks 2 days SHANELLE by EDC: 05/12/2022 Age by current US: 21 weeks 0 days SHANELLE by current US: 05/07/2022 IMPRESSION: 1. Single live intrauterine with growth detailed above. Electronically authenticated by: PERLA SALEH Date: 2021-12-25 17:46 Normal [facility] HEP B SURFACE ANTIGEN SCREEN on 10-25-2021 HBsAg Screen Negative Normal Negative [facility] Comment on above: Performed By: #### A 1C #### [facility] [address] [place] [address] Dr. Helga Salazar HEPATITIS C VIRUS AB W/ REFL EX QUANTon 10-25-2021 HCV AB <0.1 Normal 0.0-0.9 [facility] Comment on above: Performed By: #### H CVPCRR #### [facility] [address] [place] [address] Dr. Helga Salazar Interpretation: Comment Normal [facility] Comment on above: Result Comment: Nega tive Not infected with HCV, unless recent infection is suspected or other evidence exists to indicate HCV infection. Performed By: #### H CVPCRR #### [facility] [address] [place] [address] Dr. Helga Salazar HIV 1 AND 2 WITH REFLEXon HIV Screen 4th Generation wRfx Non-Reactive Normal Non Reactive [facility] Comment on above: Result Comment: HIV Negative HIV-1/HIV-2 antibodies and HIV-1 p24 antigen were NOT detected. There is no laboratory evidence of HIV infection. Performed By: #### C BC #### [facility] [address] [place] [address] Dr. Helga Salazar RPR QUANTon 10-25-2021 Rapid Plasma Reagin, Quant Non-Reactive Normal NonRea<1:1 [facility] Comment on above: Result Comment: Plea se Note: This test does not meet current guidelines for screening and diagnosis of syphilis. This test is intended for following treatment response in patients being treated for syphilis infection. To screen for syphilis infection, a reflex cascade that includes both RPR and a treponema-specific assay should be utilized, such as Treponema pallidum (Syphilis) Screening [place] (864752) or Rapid Plasma Reagin (RPR) Test With Reflex to Quantitative RPR and Confirmatory Treponema pallidum Antibodies (081679). Performed By: #### C BC #### [facility] [address] [place] [address] Dr. Helga Salazar RUBELLA AB IGGon 10-25-2021 Rubella Antibodies, IgG 1.54 index Normal Immune >0.99 [facility] Comment on above: Result Comment: Non- immune <0.90 Equivocal 0.90 - 0.99 Immune >0.99 Performed By: #### A 1C #### [facility] [address] [place] [address] Dr. Helga Salazar CBC AUTO DIFFon 10-24-2021 BASO # 0.0 103/ul Normal 0.0-0.1 [facility] Comment on above: Performed By: #### C BC #### [facility] [address] [place] [address] Dr. Helga Salazar Basophils/100 WBC (Bld) 0.2 % Normal 0.2-2.0 [facility] Comment on above: Performed By: #### C BC #### [facility] [address] [place] [address] Dr. Helga Salazar EO # 0.0 103/ul Normal 0.0-0.7 [facility] Comment on above: Performed By: #### C BC #### [facility] [address] [place] [address] Dr. Helga Salazar Eosinophils/100 WBC (Bld) 0.5 % Critically low 0.9-7.0 [facility] Comment on above: Performed By: #### C BC #### [facility] [address] [place] [address] Dr. Helga Salazar Erythrocyte distribution width (RBC) [Ratio] 12.3 % Normal 11.0-15.0 [facility] Comment on above: Performed By: #### C BC #### [facility] [address] [place] [address] Dr. Helga Salazar Hematocrit (Bld) [Volume fraction] 35.2 % Critically low 36.0-48.0 [facility] Comment on above: Performed By: #### C BC #### [facility] [address] [place] [address] Dr. Helga Salazar Hemoglobin (Bld) [Mass/Vol] 12.0 g/dL Normal 12.0-16.0 [facility] Comment on above: Performed By: #### C BC #### [facility] [address] [place] [address] Dr. Helga Salazar IG # 0.03 10e3/ul Normal 0.00-0.03 [facility] Comment on above: Performed By: #### C BC #### [facility] [address] [place] [address] Dr. Helga Salazar IG % 0.4 % Normal 0.0-0.5 [facility] Comment on above: Performed By: #### C BC #### [facility] [address] [place] [address] Dr. Helga Salazar LYMPH # 1.4 103/ul Normal 1.2-3.8 [facility] Comment on above: Performed By: #### C BC #### [facility] [address] [place] [address] Dr. Helga Salazar Lymphocytes/100 WBC (Bld) 16.8 % Critically low 20.5-60.0 [facility] Comment on above: Performed By: #### C BC #### [facility] [address] [place] [address] Dr. Helga Salazar MANUAL DIFF REQ NO Normal [facility] Comment on above: Performed By: #### C BC #### [facility] [address] [place] [address] Dr. Helga Salazar MCH (RBC) [Entitic mass] 30.3 pg Normal 26.7-34.0 [facility] Comment on above: Performed By: #### C BC #### [facility] [address] [place] [address] Dr. Helga Salazar MCHC (RBC) [Mass/Vol] 34.1 g/dL Normal 29.9-35.2 [facility] Comment on above: Performed By: #### C BC #### [facility] [address] [place] [address] Dr. Helga Salazar MCV (RBC) [Entitic vol] 88.9 fL Normal 81.0-99.0 [facility] Comment on above: Performed By: #### C BC #### [facility] [address] [address] [address] Helga Salazar MONO # 0.6 103/ul Normal 0.3-0.8 [facility] Comment on above: Performed By: #### C BC #### [facility] [address] [address] [address] Helga Salazar Monocytes/100 WBC (Bld) 6.7 % Normal 1.7-12.0 [facility] Comment on above: Performed By: #### C BC #### [facility] [address] [address] [address] Helga Salazar NEUT # 6.2 103/ul Normal 1.4-6.5 [facility] Comment on above: Performed By: #### C BC #### [facility] [address] [place] [address] Dr. Helga Salazar Neutrophils/100 WBC (Bld) 75.4 % Critically high 43.0-75.0 [facility] Comment on above: Performed By: #### C BC #### [facility] [address] [place] [address] Dr. Helga Salazar Platelet mean volume (Bld) [Entitic vol] 8.9 fL Critically low 9.5-13.5 [facility] Comment on above: Performed By: #### C BC #### [facility] [address] [place] [address] Dr. Helga Salazar PLT 268 103/ul Normal 150-450 [facility] Comment on above: Performed By: #### C BC #### [facility] [address] [place] [address] Dr. Helga Salazar RBC 3.96 106/ul Critically low 4.20-5.40 [facility] Comment on above: Performed By: #### C BC #### [facility] [address] [place] [address] Dr. Helga Salazar WBC 8.2 103/ul Normal 4.0-11.0 [facility] Comment on above: Performed By: #### C BC #### [facility] [address] [place], [place] [id number] Dr. Helga Salazar CULTURE URINEon 10-24-2021 CULTURE URINE Culture Observations: HEAVY GROWTH OF MIXED GENITAL ESEQUIEL. NO POTENTIAL PATHOGENS SEEN. Normal [facility] Comment on above: Performed By: #### U RCX #### [facility] [address] [address] [address] Helga Salazar GLYCOHEMOGLOBIN A1Con 2021 ADA RECOMMENDATION SEE BELOW Normal [facility] Comment on above: Result Comment: ADA RECOMMENDED LIMIT 4.0 - 6.0 ADA THERAPEUTIC TARGET < 7.0 ACTION SUGGESTED > 7.0 Performed By: #### A 1C #### [facility] [address] [place] [address] Dr. Helga Salazar Glucose [Mass/Vol] 85 mg/dL Normal [facility] Comment on above: Performed By: #### A 1C #### [facility] [address] [place] [address] Dr. Helga Salazar HbA1c (Bld) [Mass fraction] 4.6 % Normal 4.5-6.2 [facility] Comment on above: Performed By: #### A 1C #### [facility] [address] [address] [address] Helga Salazar TYPE AND SCREENon 10-24-2021 TYPE AND SCREEN Negative Normal [facility] Comment on above: Performed By: #### C BC #### [facility] [address] [place] [address] Dr. Helga Salazar US PREG TVon 10-10-2021 US PREG TV EXAMINATION: US PREG TV HISTORY: Missed period COMPARISON: No relevant comparison available. FINDINGS: GESTATIONAL SAC: Present and normal appearing. POLE: Present and normal appearing. YOLK SAC: Present. CARDIAC: Present. UTERUS: Normal size and appearance. OVARIES: Right: Normal. Left: Normal. CERVIX: 4.2 cm in length and closed. CUL-DE-SAC: Normal. OTHER: None. AGE BY LMP: 9 weeks, 3 days SHANELLE BY LMP: 05/12/2022 AGE BY US CRL: 9 weeks, 4 days SHANELLE BY US CRL: 05/11/2022 IMPRESSION: 1. Single live intrauterine . Electronically authenticated by: PERLA SALEH Date: 2021-10-10 16:54 Normal [facility] XR wrist BI 2Von 12-07-2020 XR wrist BI 2V [facility] Main [address] [address] XRay Report Signed Patient: Homa Bae MR#: [id number] : 1990 Acct:[id number] Age/Sex: 30 / F ADM Date: 12/07/20 Loc: [facility] Room: Type: [facility] Attending Dr: Lul Ocampo DO Ordering Provider: Lul Ocampo DO Date of Service: 12/07/20 XR/XR wrist BI 2V: Other closed extra-articular fracture of distal end of left Copies to: Lul Ocampo DO CLINICAL HISTORY: Follow-up internal fixation of distal radial fracture on the left and fracture of the distal right radius. Date of injury on 10/02/2020. XR wrist BI 2V COMPARISON: 11/09/2020 FINDINGS: AP and lateral views of the bilateral wrists were obtained. The patient is status post internal fixation of distal left radial fracture with placement of a volar plate and multiple screws. There is further obliteration of the radiolucent fracture line at the dorsal aspect of the radius since prior examination. There is stable bony alignment. The distal right radius shows a healing or healed hairline fracture with stable alignment. XR/XR wrist BI 2V IMPRESSION: INTERNAL FIXATION OF THE DISTAL LEFT RADIAL FRACTURE, STABLE ALIGNMENT. A HEALING OR HEALED DISTAL RIGHT RADIAL FRACTURE. Impression dictated by: Gideon Londono M.D.12/07/2020 12:59 PM Dictation Location: [place] [address] Transcribed By: [facility] 12/07/20 1259 Dictated By: Gideon Londono MD 12/07/20 1253 Signed By: 12/07/20 1259 Normal [facility] XR wrist BI 2V [facility] [employer] Other XR wrist BI 2V [facility] [employer] Other XR wrist BI 2V [address] [place] [address] [employer] Other XR wrist BI [place] [address] No rt [employer] Other XR wrist BI 2V XRay Report [employer] Other XR wrist BI 2V Signed [employer] Other XR wrist BI 2V Patient: Homa Bae MR#: [id number] [employer] Other XR wrist BI 2V [id number] [employer] Other XR wrist BI 2V : 1990 Acct:[id number] [employer] Other XR wrist BI 2V Age/Sex: 30 / F ADM Date: 12/07/20 [employer] Other XR wrist BI 2V Loc: [facility] Room: Type: [facility] [employer] Other XR wrist BI 2V Attending Dr: Lul Ocampo DO [employer] Other XR wrist BI 2V Ordering Provider: Lul Ocampo, [employer] Other XR wrist BI 2V Date of Service: 12/07/20 [employer] Other XR wrist BI 2V XR/XR wrist BI 2V: Other closed extra-articular fracture of distal end of [employer] Other XR wrist BI 2V left [employer] Other XR wrist BI 2V Copies to: Lul Ocampo, DO [employer] Other XR wrist BI 2V CLINICAL HISTORY: Follow-up internal fixation of distal radial fracture on the left and fracture of [employer] Other XR wrist BI 2V the distal right radius. Date of injury on 10/02/2020. [employer] Other XR wrist BI 2V XR wrist BI 2V [employer] Other XR wrist BI 2V COMPARISON: 11/09/2020 [employer] Other XR wrist BI 2V FINDINGS: AP and lateral views of the bilateral wrists were obtained. The patient is status post [employer] Other XR wrist BI 2V internal fixation of distal left radial fracture with placement of a volar plate and multiple [employer] Other XR wrist BI 2V screws. There is further obliteration of the radiolucent fracture line at the dorsal aspect of the [employer] Other XR wrist BI 2V radius since prior examination. There is stable bony alignment. [employer] Other XR wrist BI 2V The distal right radius shows a healing or healed hairline fracture with stable alignment. [employer] Other XR wrist BI 2V XR/XR wrist BI 2V [employer] Other XR wrist BI 2V IMPRESSION: [employer] Other XR wrist BI 2V INTERNAL FIXATION OF THE DISTAL LEFT RADIAL FRACTURE, STABLE ALIGNMENT. [employer] Other XR wrist BI 2V A HEALING OR HEALED DISTAL RIGHT RADIAL FRACTURE. [employer] Other XR wrist BI 2V Impression dictated by: Gideon Londono M.D.12/07/2020 12:59 PM [employer] Other XR wrist BI 2V Dictation Location: [place] [address] [employer] Other XR wrist BI 2V Transcribed By: JESSICA 12/07/20 [facility]9 [employer] Other XR wrist BI 2V Dictated By: Gideon Londono MD 12/07/20 [facility] [employer] Other XR wrist BI 2V Signed By: [employer] Other XR wrist BI 2V 12/07/20 1259 [employer] Other XR wrist BI 2Von 11-09-2020 XR wrist BI 2V [facility] [place] [address] XRay Report Signed Patient: Homa Bae MR#: [id number] : 1990 Acct:[id number] Age/Sex: 30 / F ADM Date: 11/09/20 Loc: [facility] Room: Type: REG CLI Attending Dr: Lul Ocampo DO Ordering Provider: Lul Ocampo DO Date of Service: 11/09/20 XR/XR wrist BI 2V: Other closed extra-articular fracture of distal end of left Copies to: Lul Ocampo DO BILATERAL WRISTS - 2 views each COMPARISON: 10/10/2040 CLINICAL DATA: Follow-up radial fractures AP and lateral views were obtained. There is redemonstration of a volar plate along the distal aspect of the left radius. The fracture fragments are in stable alignment. A subtle nondisplaced fracture at the distal radial metaphysis is also noted. No new fractures or dislocation are seen. There is slight dorsal soft tissue swelling. XR/XR wrist BI 2V IMPRESSION: STABLE DISTAL RADIUS FRACTURES. Impression dictated by: Cammie Jiang M.D.11/09/2020 1:31 PM Dictation Location: [place] [address] Transcribed By: [facility] 11/09/20 1331 Dictated By: Cammie Jiang MD 11/09/20 1328 Signed By: 11/09/20 1331 Normal [facility] HCG,Urineon 10-10-2020 Beta HCG ( test) Ql (U) Negative Normal [facility] Comment on above: Result Comment: PERF ORMED BY: [address] [place] [address] PATHOLOGIST [employer] CRIMPER MAX MANE M.D. Performed By: #### U HCG #### [address] XR wrist LT min 3V*on 2020 XR wrist LT min 3V* [address] [address] XRay Report Signed Patient: Homa Bae MR#: [id number] : 1990 Acct:[id number] Age/Sex: 30 / F ADM Date: 10/10/20 Loc: ID Room: Type: [facility] Attending Dr: Lul Ocampo DO Ordering Provider: Lul Ocampo DO Date of Service: 10/10/20 XR/XR wrist LT min 3V*: . Copies to: Lul Ocampo DO Fluoroscopic assessment of LEFT wrist ORIF. 8 images. Total time 45 seconds Volar plate-screw fixation of the distal radius is present. No hardware failure. Adequate bony alignment. XR/XR wrist LT min 3V* IMPRESSION: Fluoroscopic assessment of LEFT distal radius ORIF. Impression dictated by: Dillan Fischer M.D.10/10/2020 1:45 PM Dictation Location: [place] [address] Transcribed By: [facility] 10/10/20 1345 Dictated By: Dillan Fischer DO 10/10/20 1338 Signed By: 10/10/20 1345 Normal [facility] XR wrist RT 2Von 10-10-2020 XR wrist RT 2V [place] [id number] XRay Report Signed Patient: Homa Bae MR#: [id number] : 1990 Acct:[id number] Age/Sex: 30 / F ADM Date: 10/10/20 Loc: ID Room: Type: [facility] Attending Dr: Lul Ocampo DO Ordering Provider: Lul Ocampo DO Date of Service: 10/10/20 XR/XR wrist RT 2V: . Copies to: Lul Ocampo DO XR wrist RT 2V 10/10/2020 11:54 AM SIGNS AND SYMPTOMS: Possible right wrist fracture PROTOCOL: Intraoperative views of the right wrist COMPARISON: 10/07/2020 FINDINGS: Intraoperative views of the right wrist were obtained to assess for possible fracture. Hardware overlies and partially obscures the distal radius on lateral view. There is persistent soft tissue swelling dorsally. There is no definite displaced fracture. However, the fluoroscopic images are of lower quality compared to the standard radiographs from the prior exam. Number of images: 8 Fluoroscopic time: 45 seconds XR/XR wrist RT 2V IMPRESSION: Intraoperative views of the right wrist were obtained to assess for possible fracture. Hardware overlies and partially obscures the distal radius on lateral view. There is persistent soft tissue swelling dorsally. There is no definite displaced fracture. However, the fluoroscopic images are of lower quality compared to the standard radiographs from the prior exam. Impression dictated by: River Rice M.D.10/10/2020 2:17 PM Dictation Location: [place] [address] Transcribed By: JESSICA 10/10/20 141 Dictated By: River Rice II, MD 10/10/20 1413 Signed By: 10/10/20 141 Normal [facility] COVID[facility] SARS-CoV-2 (COVID-19) RNA SABRINA+probe Ql (Unsp spec) Negative Normal Negative [facility] Comment on above: Order Comment: Healt hcare Worker?: N Result Comment: Testing for SARS-CoV-2 by RT-PCR This test was developed and its performance characteristics determined by [employer], [employer] and validated at the [facility]. This test has not been FDA cleared or approved. This test has been authorized by FDA under an Emergency Use Authorization (EUA). This test has been validated in accordance with the FDA's Guidance Document (Policy for Diagnostics Testing in Laboratories Certified to Perform High Complexity Testing under CLIA prior to Emergency Use Authorization for Coronavirus Disease-2019 during the Public Health Emergency) issued on June 16, 2019. This test is only authorized for the duration of time the declaration that circumstances exist justifying the authorization of the emergency use of in vitro diagnostic tests for detection of SARS-CoV-2 virus and/or diagnosis of COVID-19 infection under section 564(b)(1) of the Act, 21 U.S.C. 360bbb-3(b)(1), unless the authorization is terminated or revoked sooner. PERFORMED BY: [place] [address] PATHOLOGIST [employer] CRIM[employer] MAX MANE M.D. Performed By: #### C OVID 19 [facility] #### [place] [id number] [facility] XR elbow LT min 3V*on 2020 XR elbow LT min 3V* [facility] [place] [address] XRay Report Signed Patient: Homa Bae MR#: [id number] : 1990 Acct:[id number] Age/Sex: 30 / F ADM Date: 10/07/20 Loc: ER Room: Type: [facility] ER Attending Dr: Ordering Provider: Francisco Beverly APRN Date of Service: 10/07/20 XR/XR elbow LT min 3V*: Extremity Injury, Upper Copies to: Francisco Beverly APRN XR elbow LT min 3V* 10/07/2020 4:53 PM SIGNS AND SYMPTOMS: Injury to left elbow with pain which is generalized PROTOCOL: Frontal, lateral, and oblique radiographs of the left elbow COMPARISON: None FINDINGS: The joint spaces are preserved. There is no evidence of fracture. No joint effusion. No soft tissue swelling. XR/XR elbow LT min 3V* IMPRESSION: No fracture or dislocation. Impression dictated by: River Rice M.D.10/07/2020 5:18 PM Dictation Location: [place] [address] Transcribed By: [facility] 10/07/201717 Dictated By: River Rice II, MD 10/07/201714 Signed By: 10/07/20 1718 Normal [facility] XR wrist min BI 3Von 021 XR wrist min BI 3V [facility] Main [place] [id number] XRay Report Signed Patient: Homa Bae MR#: [id number] : 1990 Acct:[id number] Age/Sex: 30 / F ADM Date: 10/07/20 Loc: ER Room: Type: REG ER Attending Dr: Ordering Provider: Francisco Beverly APRN Date of Service: 10/07/20 XR/XR wrist min BI 3V: Extremity Injury, Upper Copies to: Francisco Beverly APRN XR wrist min BI 3V 10/07/2020 4:53 PM SIGNS AND SYMPTOMS: Wrist pain bilaterally PROTOCOL: Frontal, lateral, and bilateral oblique radiographs of the bilateral wrists. COMPARISON: None FINDINGS: Right: There is subtle cortical irregularity along the dorsal aspect of the left distal radius. There is soft tissue swelling along the dorsum of the carpal row on the right. This may represent a minimally displaced distal radius fracture. The articular surfaces.. The ulna is spared. Carpal rows are preserved. Left: There is an impacted comminuted fracture of the distal radius with mild dorsal tilt of the radiocarpal joint space and mild dorsal subluxation of the proximal carpal row. There is accompanying soft tissue swelling. The ulnar styloid is intact. XR/XR wrist min BI 3V IMPRESSION: Findings suggesting distal radius fractures bilaterally, impacted and angulated than the left versus minimally displaced on the right. There is soft tissue swelling over the wrists, greatest dorsally. Impression dictated by: River Rice M.D.10/07/2020 5:15 PM Dictation Location: [place] [address] Transcribed By: [facility] 10/07/201714 Dictated By: River Rice II, MD 10/07/201712 Signed By: 10/07/201714 [facility] Vital Signs Date Time Vital Sign Value Performing Clinician Izaiah chappell 04-29-2023 13:47-0500 Body mass index (BMI) [Ratio] 28.49 kg/m2 Yanick Van [facility] Work Phone: [facility] 04-29-2023 13:47-0500 Body weight 75.3 kg Yanick Van [employer] Work Phone: [facility] 04-29-2023 13:47-0500 Diastolic blood pressure 72 mm[Hg] Yanick Van [employer] Work Phone: [facility] 04-29-2023 13:47-0500 Heart rate 85 /min Yanick Swathi-Nossek [employer]ED [employer]IVER Work Phone: [facility] 04-29-2023 13:47-0500 Systolic blood pressure 110 mm[Hg] Yanick Swathi-Nossek [employer]DITION[employer] FLATBED DRIVER Work Phone: [facility] Encounters Encounter Date Encounter Type Care Provider Facility Start: 11-09-2023 End: 11-09-2023 ambulatory IVANIA THELMA Not Available Start: 10-23-2023 End: 10-23-2023 ambulatory YANICK M SWATHI-NOSSEK Not Available Start: 10-09-2023 End: 10-09-2023 ambulatory YANICK SWATHI-NOSSEK Not Available Start: 07-24-2023 End: 07-24-2023 ambulatory YANICK M SWATHI-NOSSEK Not Available Start: 05-22-2023 End: 05-22-2023 ambulatory YANICK M SWATHI-NOSSEK Not Available Start: 05-07-2023 End: 05-07-2023 ambulatory ESTEFANI Driver KEY Not Available Start: 04-29-2023 Bamboo flowsheet Yanick Milton Swathi-Nossek [employer]IVER Work Phone: [facility] Start: 04-29-2023 Bamboo flowsheet Yanick Milton Swathi-Nossek [employer] FL[employer]BED DRIVER Work Phone: [facility] Start: 04-29-2023 End: 04-29-2023 Office outpatient visit 25 minutes Yanick M Swathi-Nossek [employer]IVER Work Phone: [facility] Comment on above: Anxiety; Attention deficit hyperactivity disorder (ADHD), predominantly inattentive type (CMS/HCC) Start: 04-29-2023 End: 04-29-2023 ambulatory YANICK M SWATHI-NOSSEK Not Available Start: 03-17-2023 End: 03-17-2023 ambulatory YANICK M SWATHI-NOSSEK Not Available Start: 05-27-[address] FELICIANO CALLAHAN . Fa cility:[facility]1 Start: 05-19-2022 End: 05-21-2022 Evaluation and management of inpatient DR FELICIANO CALLAHAN . Facility:[facility] Start: 05-17-2022 End: 05-17-2022 ambulatory LONA JOVEL Facility:[facility] Start: 05-15-2022 End: 05-15-[address] FELICIANO CALLAHAN . Facility:[facility] Start: 05-13-2022 End: 05-13-[address] FELICIANO CALLAHAN . Facility:[facility] Start: 05-12-2022 End: 05-12-[address] FELICIANO CALLAHAN . Facility:[facility] Start: 04-16-2022 End: 04-16-[address] FELICIANO CALLAHAN . Facility:[facility] Start: 03-02-2022 End: 03-02-[address] FELICIANO CALLAHAN . Facility:[facility] Start: 02-20-2022 End: 02-21-[address] FELICIANO CALLAHAN . Facility:[facility] Start: 12-25-2021 End: 12-26-[address] FELICIANO CALLAHAN . Facility:[facility] Start: 10-24-2021 End: 10-25-[address] FELICIANO CALLAHAN . Facility:[facility] Start: 10-10-2021 End: 10-11-[address] FELICIANO CALLAHAN . Facility:[facility] Start: 12-07-2020 Postop follow up vis it related to original px [facility] Procedures Date Procedure Procedure Detail Performing Clinician Start: 05-19-2022 Delivery of Products of Conception, External Approach DR FELICIANO CALLAHAN . Start: 05-19-2022 Drainage of Amniotic Fluid, Therapeutic from Products of Conception, Via Natural or Artificial Opening DR FELICIANO CALLAHAN . Start: 05-19-2022 Introduction of Othe r Hormone into Peripheral Vein, Percutaneous Approach DR FELICIANO CALLAHAN . Plan of Treatment Date Care Activity Detail Author Start: 05-22-2023 End: 05-22-2023 Telemedicine consultation with patient 05/22/2023 8:30 AM EST Telemedicine [facility] [address] [place] [phone] Yanick Bolivar, [employer]ATBED DRIVER [address] [place] [address] [facility] Start: 05-07-2023 End: 05-07-2023 Social Work 05/07/2023 1:00 PM EST Social Work [facility] [address] [place] [address] Estefani Key, [facility] [address] [place] [address] [facility] Start: 04-29-2023 End: 04-29-2023 Patient encounter procedure 04/29/2023 2:00 PM EST Office Visit [facility] [address] [facility] [address] [place] [address] Yanick Bolivar, CAN [employer]DITION[employer]OTR FLATBED DRIVER [address] [facility] [address] [place] [address] [facility] Comment on above: Arrived Start: 11-14-2022 Influenza vaccination Influenza Vacc ine (#1) [facility] Start: 2020 Screening for malign ant neoplasm of cervix [facility] Start: 07-15-2011 Screening for malign ant neoplasm of cervix Pap Smear [facility] Payers Date Payer Category Payer Private Health Insurance [facility] [id number] 2022-Present [address] [address] [place] [address] [id number] 2022 Private Health Insurance [id number] 1990 Unknown [id number] 2.16.840.1.915123.3.579. 2.593 1990 Unknown [id number] 2.16.840.1.412791.3.579. 2.593 1990 Unknown [id number] 2.16.840.1.887561.3.579. 2.593 1990 Unknown [id number] 2.16.840.1.511636.3.579. 2.593 1990 Unknown [id number] 2.16.840.1.480430.3.579. 2.593 1990 Unknown [id number] 2.16.840.1.127540.3.579. 2.593 1990 Unknown [id number] 2.16.840.1.363405.3.579. 2.593 1990 Unknown [id number] 2.16.840.1.034621.3.579. 2.593 1990 Unknown [id number] 2.16.840.1.040086.3.579. 2.593 1990 Unknown [id number] 2.16.840.1.030051.3.579. 2.593 1990 Unknown [id number] 2.16.840.1.143579.3.579. 2.593 1990 Unknown [id number] 2.16.840.1.666805.3.579. 2.59 1990 Unknown [id number] 2.16.840.1.738304.3.579. 2.1258 1990 Unknown [id number] 2.16.840.1.357318.3.579. 2.1258 1990 Unknown [id number] 2.16.840.1.561384.3.579. 2.1259 1990 Unknown [id number] 2.16.840.1.006126.3.579. 2.1258 1990 Unknown [id number] 2.16.840.1.083181.3.579. 2.1258 1990 Unknown [id number] 2.16.840.1.027549.3.579. 2.1259 1990 Unknown [id number] 2.16.840.1.817961.3.579. 2.1259 1990 Unknown [id number] 2.16.840.1.407706.3.579. 2.1259 1959 Private Health Insurance [id number] Private Health Insurance [id number] 2.16.840.1.930924.19 Social History Date Type Detail Facility Start: 03-17-2023 End: 04-29-2023 Sex Assigned At [facility] Other Start: 03-17-2023 Tobacco smoking status NHIS Never smoked tobacco [facility] Start: 03-17-2023 Tobacco use and exposure Smokeless tobacco non-user [facility] Start: 03-17-2023 End: 04-29-2023 Alcohol intake Lifetime non-drinker (finding) [facility] Start: 03-17-2023 End: 04-29-2023 History of Social function [facility] Start: 03-17-2023 Alcohol Comment caffiene- 1 cup coff ee [facility] Start: 1990 Sex Assigned At Not on file [facility] History of Present illness Narrative 04-29-2023 Yanick Bolivar, [employer] FLATBED DRIVER - 04/29/2023 2:00 PM Abhishek Melgar, [employer] - 04/29/2023 2:00 PM EST Note Date & Type Note Facility 04-29-2023 History of Presen t illness Narrative Images from the original note were not included. Homa BAE : 1990 (31 yo F) History of Present Illness This is a medication management visit. Had a child May 2022. She is happy with zoloft. Not taking medications. She is on BCP-Micronor and feels it helps her mood. She is no longer . Mood is reported as not depressed. Denies anxiety. Took three days off. Worries excessively and intrusive thoughts, AT times is worse. Sleeping 7-9 hours. She went almost a year with poor sleep. Medication compliant. No reported side effects. Denies abuse of substances. Long hx of ADD-would like to restart adderall. No New Medical problems since last visit. Working at [employer] and its better working there. Stressors include work stress. Has two children and one stepchild. Patient is here to get put back on zoloft and adderall. Past Medical History Shingles. Attention-deficit hyperactivity disorder, unspecified type. Surgical History Cancer of Uterus removed-LEEP 2018 orif left wrist 10/2020 Family History Father: alive Mother: alive Paternal Grand Father: diagnosed with Stroke 4 sister(s) - healthy. 1 son(s) - healthy. Social History Miscellaneous: Caffeine: 1 cup per day of coffee. Education: Masters program online-[employer]. Children: 4year old father sees child qother weekend. Legal problems: none age 17 -curfew violation-Probation violation -in assisted -5 days. Living with: Boyfriend. 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 Pets: dog-Albino. no Sexually active. no Verbal abuse, denies abuse. Allergies Banana (Diagnostic) - Onset Date 08/04/2019 Seasonal IC - Onset Date 08/04/2019 Hospitalization/Major Diagnostic Procedure denies mental health hospitalizations,or suicide attempts Review of Systems General: Patient Deniesmajor illness. Gastrointestinal: Patient deniesstomach problems. Psychiatric: Patient deniesauditory/visual hallucinations , delusions , eating disorder , loss of appetite , substance abuse , suicidal thoughts. Examination Psychiatry: ABNORMAL BODY MOVEMENTS:none. AFFECT:appropriate , full range. AGGRESSION:none reported. ANGER CONTROL:in control. ATTENTION: good. ATTITUDE:cooperative. CURRENT HOMICIDALITY:none. CURRENT SUICIDALITY:not presently. DEGREE OF AWARENESS OF SURROUNDINGS:within normal limits. IMPULSE CONTROL:good. INSIGHT:good-fair. INTELLIGENCE (estimate):above average. JUDGEMENT:good. MOOD: denies anxiety and depression ORIENTATION:yes x 3. PERCEPTUAL DISORDERS:no perceptual disorder noted. PSYCHOMOTOR ACTIVITY: calm SEXUAL IMPULSE CONTROL:good. SPEECH:clear , normal/R/V/R. THOUGHT CONTENT:unremarkable. THOUGHT PROCESS:intact. MEMORY:intact . Assessments 1. CHARLIE (generalized anxiety disorder) - F41.1 2. Attention deficit hyperactivity disorder (ADHD), predominantly inattentive type - F90.0 3. Insomnia, unspecified type - G47.00 Treatment Refill Zoloft Tablet, 25 MG, 1 tablet, Orally, Once a day, 30 day(s)-to target anxiety and irritability 2. Didn't do well on trazodone. Lunesta 2mg 3) consider stimulant in future when sleeping adequate 4.) referred back to counseling face to face /documentation/review of record=34min F/U 4 weeks Anniversary is coming up of loved ones . Feels good with a meds. documented in this encounter [facility] Evaluation note 12-07-2020 Note Date & Type Note Facility 12-07-2020 Evaluation note Encounter Date Diagnosis Assessment Notes Nov, Other closed extra-articular fracture of distal end of left radius with routine healing, subsequent encounter (ICD-10 - S52.552D) Homa returns 8 weeks s/p ORIF left distal radius fracture with carpal tunnel release for acute carpal tunnel syndrome. She is doing well. Her exam is benign and motion has returned to normal. X-rays show her fracture is healed. I will plan for follow-up on an as-needed basis. Patient is progressing well from surgery. We discussed the importance of continuing motion and strength exercise. Activity as tolerated. Call with any questions or concerns. Nov, Other closed extra-articular fracture of distal end of right radius with routine healing, subsequent encounter (ICD-10 - S52.551D) Fracture is healed and motion returned to normal. She has no complaints. Follow-up as needed Nov, Left carpal tunnel syndrome (ICD-10 - G56.02) Improved Nov, Other specified postprocedural states (ICD-10 - Z98.890) [employer] Other Evaluation note Note Date & Type Note Facility Evaluation note Diagnosis Anxiety Anxiety state, unspecified Attention deficit hyperactivity disorder (ADHD), predominantly inattentive type (CMS/HCC) documented in this encounter [facility] History general Narrative - Reported Note Date & Type Note Facility History general Narrative - Reported Type Surgical History tonsillectomy Surgical History leap Surgical History bbl [employer] Other Summary Purpose Family History No Family History Records FoundNo Family History Records FoundNo Family History Records Found Advance Directives No Advanced Directives Records FoundNo Advanced Directives Records FoundNo Advanced Directives Records Found Additional Source Comments INFORMATION SOURCE (unrecogn ized section and content) DATE CREATED AUTHOR 04/07/2021 [facility] DATE CREATED AUTHOR AUTHOR'S ORGANIZ ATION 05/28/2022 [facility] DATE CREATED AUTHOR AUTHOR'S ORGANIZ ATION 11/10/2023 [facility] dical Specialists EPIC REASON FOR VISIT (unrecogniz ed section and content) Reason Comments Med Management Follow-up Care Teams (unrecognized sec tion and content) Product Safety Administrator Relationship Specialty Start Date End Date Daniel Comer, [address] [place] [address] PCP - General Family Medicine 07/22/22 Product Safety Administrator Relationship Specialty Start Date End Date Daniel Comer DO [address] [place] [address] PCP - General Family Medicine 07/22/22 FOR RECORDS PERTAINING TO PATIENTS WHO ARE OR HAVE BEEN ENROLLED IN A CHEMICAL DEPENDENCY/SUBSTANCEABUSE PROGRAM, SOME INFORMATION MAY BE OMITTED. This clinical summary was aggregated from multiple sources. Caution should be exercised in using it in the provision of clinical care. This summary normalizes information from multiple sources, and as a consequence, information in this document may materially change the coding, format and clinical context of patient data. In addition, data may be omitted in some cases. CLINICAL DECISIONS SHOULD BE BASED ON THE PRIMARY CLINICAL RECORDS. [facility]. provides no warranty or guarantee of the accuracy or completeness of information in this document.
--- NOTE | 2023-12-04 15:36 | US_ITS ---
[address] [address] Patient Name: LILIANA GO MRN: [id number] date: 1990 Sex: F Assigned Patient Location: US Current Patient Location: Accession/Order Number: [id number] Exam Date: 12/04/2023 15:40 Report Date: 12/07/2023 07:34 At the request of: IVANIA RENEE Procedure: US OB cervical length EXAMINATION: US OB anatomy, US OB cervical length HISTORY: ANATOMIC SURVEY Z36.89 COMPARISON: No relevant comparison available. TECHNIQUE: Transabdominal sonographic examination was performed for obstetrical and evaluation. FINDINGS: Number: 1 Heart Rate: 155.17 bpm H.B. /min Amniotic Fluid Volume: Subjectively normal position: Transverse presentation, variable lie Placental Location: Posterior. Grade 1. Cervix Length: 5.5 cm , closed Normal anatomy: Cerebellum, posterior fossa, nose, lips, orbits, four-chamber heart, RVOT, LVOT, diaphragm, stomach, kidneys, abdominal cord insertion, bladder, umbilical arteries, three-vessel cord, spine, extremities Suboptimal anatomy: Lateral ventricles BIOMETRY: BPD: 5.00 cm; 21 weeks 1 day; 16.60 % HC: 18.82 cm; 21 weeks 1 day; 9.60 % AC: 16.28 cm; 21 weeks 2 days; 22.50 % FL: 3.53 cm; 21 weeks 1 day; 15.60 % EFW:410.07 g; 13.30 %, 14 ounces FL/AC: 21.72 FL/BPD: 70.72 HC/AC: 1.16 GESTATIONAL AGE: Age by EDC: 22 weeks 0 days SHANELLE by EDC: 2024-04-08 Age by current US: 21 weeks 1 day SHANELLE by current US: 2024-04-14 US/US OB cervical length IMPRESSION: Suboptimal visualization of the lateral ventricles, otherwise normal anatomy scan Closed cervix measuring 5.5 cm in length *Reference: [employer] Practice Guideline for the performance of Obstetric Ultrasound Examinations, December 14, 2006. Electronically authenticated by: MICHEAL ZAPATA Date: 12/07/2023 07:34
== END 2023-12-04 15:12 | disposition home or self-care (01) ==
LOC: US 15:11
PROVIDERS: PCP Family Medicine; Visit Provider Obstetrics & Gynecology
DX: Z34.92 Encounter for supervision of normal pregnancy, unspecified, second trimester (principal); Z3A.21 21 weeks gestation of pregnancy; Z36.89 Encounter for other specified antenatal screening
CPT/HCPCS: 76805; 76817

== ENCOUNTER 2023-12-14 09:51 | Outpatient (OUT) | payer OTHER, SELFPAY ==
--- OUTSIDE RECORDS SUMMARY | 2023-12-14 10:00 | XMS_ITS | CCD ---
Author Organization [facility] InformFormerly [facility], [facility] Care Team Providers Care Interactive Multimedia Designer Name Role Phone Lul Ocampo Unavailable KARNIIK [...] e MISC, DR MOSER Primary Care Unavailable ZIEBER, DR PERLA Seaman [...] LONA JOVEL Consulting Unavailable KARASIK ., DR WIGGINS Attending [...] Attending Unavailab le IVANIA RENEE Attending Unavailable SERA SEGURA Attending Unavailable Allergies Allergy Classification Reported Allergen(s) Allergy Type Date of Onset Reaction(s) Facility (1 source) banana allergenic extract Drug Allergy hives [facility] Other (4 sources) Cat dander Drug allergy 03-17-2023 Unknown [facility] Other (1 source) Banana Extract Drug Allergy 03-16-2004 [facility] (1 source) Latex Drug allergy (disorder) 03-16-2009 [facility] (1 source) kiwi Drug allergy (disorder) 03-16-2004 [facility] (3 sources) Banana Extract Drug Allergy 08-04-2019 Unknown [facility] (3 sources) Octacosanol Drug Allergy 08-04-2019 Unknown [facility] Healthcare Medications Current Medications Medication [...] 05-20-2022 BASO # 0.0 103/ul Normal 0.0-0.1 [facility] Comment on above: Performed By: #### C BC #### [facility] [address] [place] [address] Dr. Helga Salazar Basophils/100 WBC (Bld) 0.2 % Normal 0.2-2.0 [facility] Comment on above: Performed By: #### C BC #### [facility] [address] [place] [address] Dr. Helga Salazar EO # 0.0 103/ul Normal 0.0-0.7 [facility] Comment on above: Performed By: #### C BC #### [facility] [address] [place] [address] Dr. Helga Salazar Eosinophils/100 WBC (Bld) 0.1 % Critically low 0.9-7.0 [facility] Comment on above: Performed By: #### C BC #### [facility] [address] [place] [address] Dr. Helga Salazar Erythrocyte distribution width (RBC) [Ratio] 16.0 % Critically high 11.0-15.0 [facility] Comment on above: Performed By: #### C BC #### [facility] [address] [place] [address] Dr. Helga Salazar Hematocrit (Bld) [Volume fraction] 30.1 % Critically low 36.0-48.0 [facility] Comment on above: Performed By: #### C BC #### [facility] [address] [place] [address] Dr. Helga Salazar Hemoglobin (Bld) [Mass/Vol] 10.0 g/dL Critically low 12.0-16.0 [facility] Comment on above: Performed By: #### C BC #### [facility] [address] [place] [address] Dr. Helga Salazar IG # 0.06 10e3/ul Critically high 0.00-0.03 [facility] Comment on above: Performed By: #### C BC #### [facility] [address] [place] [address] Dr. Helga Salazar IG % 0.5 % Normal 0.0-0.5 [facility] Comment on above: Performed By: #### C BC #### [facility] [address] [place] [address] Dr. Helga Salazar LYMPH # 1.2 103/ul Normal 1.2-3.8 [facility] Comment on above: Performed By: #### C BC #### [facility] [address] [place] [address] Dr. Helga Salazar Lymphocytes/100 WBC (Bld) 10.5 % Critically low 20.5-60.0 [facility] Comment on above: Performed By: #### C BC #### [facility] [address] [place] [address] Dr. Helga Salazar MANUAL DIFF REQ NO Normal [facility] Comment on above: Performed By: #### C BC #### [facility] [address] [place] [address] Dr. Helga Salazar MCH (RBC) [Entitic mass] 27.9 pg Normal 26.7-34.0 [facility] Comment on above: Performed By: #### C BC #### [facility] [address] [place] [address] Dr. Helga Salazar MCHC (RBC) [Mass/Vol] 33.2 g/dL Normal 29.9-35.2 [facility] Comment on above: Performed By: #### C BC #### [facility] [address] [place] [address] Dr. Helga Salazar MCV (RBC) [Entitic vol] 84.1 fL Normal 81.0-99.0 [facility] Comment on above: Performed By: #### C BC #### [facility] [address] [place] [address] Dr. Helga Salazar MONO # 0.9 103/ul Critically high 0.3-0.8 [facility] Comment on above: Performed By: #### C BC #### [facility] [address] [place] [address] Dr. Helga Salazar Monocytes/100 WBC (Bld) 8.1 % Normal 1.7-12.0 [facility] Comment on above: Performed By: #### C BC #### [facility] [address] [place] [address] Dr. Helga Salazar NEUT # 9.4 103/ul Critically high 1.4-6.5 [facility] Comment on above: Performed By: #### C BC #### [facility] [address] [place] [address] Dr. Helga Salazar Neutrophils/100 WBC (Bld) 80.6 % Critically high 43.0-75.0 [facility] Comment on above: Performed By: #### C BC #### [facility] [address] [place] [address] Dr. Helga Salazar Platelet mean volume (Bld) [Entitic vol] 8.8 fL Critically low 9.5-13.5 [facility] Comment on above: Performed By: #### C BC #### [facility] [address] [place] [address] Dr. Helga Salazar PLT 206 103/ul Normal 150-450 [facility] Comment on above: Performed By: #### C BC #### [facility] [address] [place] [address] Dr. Helga Salazar RBC 3.58 106/ul Critically low 4.20-5.40 [facility] Comment on above: Performed By: #### C BC #### [facility] [address] [place] [address] Dr. Helga Salazar WBC 11.6 103/ul Critically high 4.0-11.0 [facility] Comment on above: Performed By: #### C BC #### [facility] [address] [place] [address] Dr. Helga Salazar CBC AUTO DIFFon 05-19-2022 BASO # 0.0 103/ul Normal 0.0-0.1 [facility] Comment on above: Performed By: #### A 1C #### [facility] [address] [place] [address] Dr. Helga Salazar Basophils/100 WBC (Bld) 0.2 % Normal 0.2-2.0 [facility] Comment on above: Performed By: #### A 1C #### [facility] [address] [place] [address] Dr. Helga Salazar EO # 0.0 103/ul Normal 0.0-0.7 [facility] Comment on above: Performed By: #### A 1C #### [facility] [address] [place] [address] Dr. Helga Salazar Eosinophils/100 WBC (Bld) 0.0 % Critically low 0.9-7.0 [facility] Comment on above: Performed By: #### A 1C #### [facility] [address] [place] [address] Dr. Helga Salazar Erythrocyte distribution width (RBC) [Ratio] 15.9 % Critically high 11.0-15.0 [facility] Comment on above: Performed By: #### A 1C #### [facility] [address] [place] [address] Dr. Helga Salazar Hematocrit (Bld) [Volume fraction] 33.7 % Critically low 36.0-48.0 [facility] Comment on above: Performed By: #### A 1C #### [facility] [address] [place] [address] Dr. Helga Salazar Hemoglobin (Bld) [Mass/Vol] 11.5 g/dL Critically low 12.0-16.0 [facility] Comment on above: Performed By: #### A 1C #### [facility] [address] [address] [address] Helga Salazar IG # 0.07 10e3/ul Critically high 0.00-0.03 [facility] Comment on above: Performed By: #### A 1C #### [facility] [address] [place] [address] Dr. Helga Salazar IG % 0.6 % Critically high 0.0-0.5 [facility] Comment on above: Performed By: #### A 1C #### [facility] [address] [place] [address] Dr. Helga Salazar LYMPH # 0.9 103/ul Critically low 1.2-3.8 [facility] Comment on above: Performed By: #### A 1C #### [facility] [address] [place] [address] Dr. Helga Salazar Lymphocytes/100 WBC (Bld) 8.1 % Critically low 20.5-60.0 [facility] Comment on above: Performed By: #### A 1C #### [facility] [address] [place] [address] Dr. Helga Salazar MANUAL DIFF REQ NO Normal [facility] Comment on above: Performed By: #### A 1C #### [facility] [address] [place] [address] Dr. Helga Salazar MCH (RBC) [Entitic mass] 28.3 pg Normal 26.7-34.0 [facility] Comment on above: Performed By: #### A 1C #### [facility] [address] [place] [address] Dr. Helga Salazar MCHC (RBC) [Mass/Vol] 34.1 g/dL Normal 29.9-35.2 [facility] Comment on above: Performed By: #### A 1C #### [facility] [address] [place] [address] Dr. Helga Salazar MCV (RBC) [Entitic vol] 82.8 fL Normal 81.0-99.0 [facility] Comment on above: Performed By: #### A 1C #### [facility] [address] [place] [address] Dr. Helga Salazar MONO # 0.6 103/ul Normal 0.3-0.8 [facility] Comment on above: Performed By: #### A 1C #### [facility] [address] [place] [address] Dr. Helga Salazar Monocytes/100 WBC (Bld) 5.6 % Normal 1.7-12.0 [facility] Comment on above: Performed By: #### A 1C #### [facility] [address] [place] [address] Dr. Helga Salazar NEUT # 9.7 103/ul Critically high 1.4-6.5 [facility] Comment on above: Performed By: #### A 1C #### [facility] [address] [place] [address] Dr. Helga Salazar Neutrophils/100 WBC (Bld) 85.5 % Critically high 43.0-75.0 [facility] Comment on above: Performed By: #### A 1C #### [facility] [address] [place] [address] Dr. Helga Salazar Platelet mean volume (Bld) [Entitic vol] 8.6 fL Critically low 9.5-13.5 [facility] Comment on above: Performed By: #### A 1C #### [facility] [address] [place] [address] Dr. Helga Salazar PLT 198 103/ul Normal 150-450 [facility] Comment on above: Performed By: #### A 1C #### [facility] [address] [place] [address] Dr. Helga Salazar RBC 4.07 106/ul Critically low 4.20-5.40 [facility] Comment on above: Performed By: #### A 1C #### [facility] [address] [place] [address] Dr. Helga Salazar WBC 11.4 103/ul Critically high 4.0-11.0 [facility] Comment on above: Performed By: #### A 1C #### [facility] [address] [place] [address] Dr. Helga Salazar DRUG SCREEN RAPID (URINE)on 05-19-2022 AMP Negative Normal NEGATIVE [facility] Comment on above: Performed By: #### D RUGRPD #### [facility] [address] [place] [address] Dr. Helga Salazar BAR Negative Normal NEGATIVE [facility] Comment on above: Performed By: #### D RUGRPD #### [facility] [address] [place] [address] Dr. Helga Salazar BUP Negative Normal NEGATIVE [facility] Comment on above: Performed By: #### D RUGRPD #### [facility] [address] [place] [address] Dr. Helga Salazar BZO Negative Normal NEGATIVE [facility] Comment on above: Performed By: #### D RUGRPD #### [facility] [address] [place] [address] Dr. Helga Salazar TONY Negative Normal NEGATIVE [facility] Comment on above: Performed By: #### D RUGRPD #### [facility] [address] [place] [address] Dr. Helga Salazar CUT-OFFS SEE BELOW Normal [facility] Comment on above: Result Comment: AMP (Amphetamine): 500ng/mL, BAR (Barbituates): 200 ng/mL, BZO (Benzodiazepines): 150 ng/mL, BUP (Buprenorphine): 10 ng/mL, TONY (Cocaine): 150 ng/mL, mAMP (Methamphetamine): 500 ng/mL, MTD (Methadone): 200 ng/mL, OPI (Opiates): 100 ng/mL, OXY (Oxycodone): 100 ng/mL, PCP (Phencyclidine): 25 ng/mL, PPX (Propoxyphene): 300 ng/mL, THC (Cannabinoids): 50 ng/mL, TCA (Trycyclic Antidepressants): 300 ng/mL Performed By: #### D RUGRPD #### [facility] [address] [place] [address] Dr. Helga Salazar DRUG CUT HEADER DRUG CLASS TEST SYSTEM CUT-OFF CONCENTRATIONS ARE FOLLOWS: Normal [facility] Comment on above: Performed By: #### D RUGRPD #### [facility] [address] [address] [address] Helga Salazar mAMP Negative Normal NEGATIVE [facility] Comment on above: Performed By: #### D RUGRPD #### [facility] [address] [place] [address] Dr. Helga Salazar MTD Negative Normal NEGATIVE [facility] Comment on above: Performed By: #### D RUGRPD #### [facility] [address] [place] [address] Dr. Helga Salazar OPI Negative Normal NEGATIVE [facility] Comment on above: Performed By: #### D RUGRPD #### [facility] [address] [place] [address] Dr. Helga Salazar OXY Negative Normal NEGATIVE [facility] Comment on above: Performed By: #### D RUGRPD #### [facility] [address] [place] [address] Dr. Helga Salazar PCP Negative Normal NEGATIVE [facility] Comment on above: Performed By: #### D RUGRPD #### [facility] [address] [address] [address] Helga Salazar PPX Negative Normal NEGATIVE [facility] Comment on above: Performed By: #### D RUGRPD #### [facility] [address] [address] [address] Helga Salazar TCA Negative Normal NEGATIVE [facility] Comment on above: Performed By: #### D RUGRPD #### [facility] [address] [place] [address] Dr. Helga Salazar THC Negative Normal NEGATIVE [facility] Comment on above: Performed By: #### D RUGRPD #### [facility] [address] [address] [address] Helga Salazar TYPE AND SCREENon 05-19-2022 TYPE AND SCREEN Negative Normal [facility] Comment on above: Performed By: #### T NS #### [facility] [address] [place] [address] Dr. Helga Salazar PREG AMNIOTIC FLUID VOLUM Mor 05-17-2022 US [...] by: MICHEAL ZAPATA Date: 2022-05-17 18:25 Normal [facility] [place] PREG AMNIOTIC FLUID VOLUM Mor 05-15-2022 [...] by: MICHEAL ZAPATA Date: 2022-05-15 15:41 Normal [facility] [place] PREG BIOPHY W NON STRESSo n [...] by: MICHEAL ZAPATA Date: 2022-05-13 16:00 Normal [facility] [place] PREG BIOPHY W NON STRESSo n [...] by: PERLA SALEH Date: 2022-05-12 16:16 Normal [facility] GROUP B STREP CULTUREon S. agalactiae Ag Ql (Unsp spec) Culture Observations: NEGATIVE FOR GROUP B STREPTOCOCCUS. Normal [facility] Comment on above: Performed By: #### C BC #### [facility] [address] [place] [address] Dr. Helga Salazar PAP ACOG PANEL 2: 30 to 65on 03-12-2022 . . Normal [facility] Comment on above: Result Comment: Perf ormed at: [facility] Performed By: #### [id number] #### [facility] [address] [address] [address] Helga Salazar Age Gdln ACOG Testing - [facility] Comment on above: Performed By: #### [id number] #### [facility] [address] [place] [address] Dr. Helga Salazar DIAGNOSIS: Comment Normal [facility] Comment on above: Result Comment: NEGA TIVE FOR INTRAEPITHELIAL LESION OR MALIGNANCY. THIS SPECIMEN WAS RESCREENED PART OF OUR [employer] ASSISTANT PROGRAM. Performed at: [facility] Performed By: #### [id number] #### [facility] [address] [address] [address] Helga Salazar HPV Aptima Negative Normal [facility] Comment on above: Result Comment: This nucleic acid amplification test detects fourteen high-risk HPV types (16,18,31,33,35,39,45,51,52,56,58,59,66,68) without differentiation. Performed at: =G Performed By: #### [id number] #### [facility] [address] [address] [address] Helga Salazar HPV Genotype Reflex Comment Normal [facility] Comment on above: Result Comment: Crit errosi not met, HPV Genotype not performed. Performed at: [facility] Performed By: #### [id number] #### [facility] [address] [place] [address] Dr. Helga Salazar Methodology: Comment Normal [facility] Comment on above: Result Comment: This liquid based ThinPrep(R) pap test was screened with the use of an image guided system. Performed at: [facility] Performed By: #### [id number] #### [facility] [address] [place] [address] Dr. Helga Salazar Note: Comment Normal [facility] Comment on above: Result Comment: The Pap smear is a screening test designed to aid in the detection of premalignant and malignant conditions of the uterine cervix. It is not a diagnostic procedure and should not be used as the sole means of detecting cervical cancer. Both false-positive and false-negative reports do occur. . Performed at: [facility] Performed By: #### [id number] #### [facility] [address] [place] [address] Dr. Helga Salazar Performed by: Comment Normal [facility] Comment on above: Result Comment: Saji Ornelas, Dye Blender (ASCP) Performed at: [facility] Performed By: #### [id number] #### [facility] [address] [place] [address] Dr. Helga Salazar QC reviewed by: Comment Normal [facility] Comment on above: Result Comment: Jayson Mcgovern Sr, Dye Blender (ASCP) Performed at: [facility] Performed By: #### [id number] #### [facility] [address] [place] [address] Dr. Helga Salazar Specimen adequacy: Comment Normal [facility] Comment on above: Result Comment: Sati sfactory for evaluation. No endocervical component is identified. The absence of an endocervical component was confirmed by an additional screening evaluation. Performed at: [facility] Performed By: #### [id number] #### [facility] [address] [place] [address] Dr. Helga Salazar CHLAMYDIA/GONOCOCCUS SABRINA (SW AB/URINE/PAPon 03-05-2022 Chlamydia trachomatis, SABRINA Negative Normal Negative [facility] Comment on above: Performed By: #### C T/NGNA #### [facility] [address] [place] [address] Dr. Helga Salazar Neisseria gonorrhoeae, SABRINA Negative Normal Negative [facility] Comment on above: Performed By: #### C T/NGNA #### [facility] [address] [place] [address] Dr. Helga Salazar CBC AUTO DIFFon 02-20-2022 BASO # 0.0 103/ul Normal 0.0-0.1 [facility] Comment on above: Performed By: #### C BC #### [facility] [address] [place] [address] Dr. Helga Salazar Basophils/100 WBC (Bld) 0.2 % Normal 0.2-2.0 [facility] Comment on above: Performed By: #### C BC #### [facility] [address] [place] [address] Dr. Helga Salazar EO # 0.0 103/ul Normal 0.0-0.7 [facility] Comment on above: Performed By: #### C BC #### [facility] [address] [place] [address] Dr. Helga Salazar Eosinophils/100 WBC (Bld) 0.3 % Critically low 0.9-7.0 [facility] Comment on above: Performed By: #### C BC #### [facility] [address] [place] [address] Dr. Helga Salazar Erythrocyte distribution width (RBC) [Ratio] 12.7 % Normal 11.0-15.0 [facility] Comment on above: Performed By: #### C BC #### [facility] [address] [place] [address] Dr. Helga Salazar Hematocrit (Bld) [Volume fraction] 31.4 % Critically low 36.0-48.0 [facility] Comment on above: Performed By: #### C BC #### [facility] [address] [address] [address] Helga Salazar Hemoglobin (Bld) [Mass/Vol] 10.1 g/dL Critically low 12.0-16.0 [facility] Comment on above: Performed By: #### C BC #### [facility] [address] [address] [address] Helga Salazar IG # 0.06 10e3/ul Critically high 0.00-0.03 [facility] Comment on above: Performed By: #### C BC #### [facility] [address] [address] [address] Helga Salazar IG % 0.6 % Critically high 0.0-0.5 [facility] Comment on above: Performed By: #### C BC #### [facility] [address] [address] [address] Helga Salazar LYMPH # 0.9 103/ul Critically low 1.2-3.8 [facility] Comment on above: Performed By: #### C BC #### [facility] [address] [address] [address] Helga Salazar Lymphocytes/100 WBC (Bld) 9.4 % Critically low 20.5-60.0 [facility] Comment on above: Performed By: #### C BC #### [facility] [address] [address] [address] Helga Salazar MANUAL DIFF REQ NO Normal [facility] Comment on above: Performed By: #### C BC #### [facility] [address] [address] [address] Helga Salazar MCH (RBC) [Entitic mass] 28.1 pg Normal 26.7-34.0 [facility] Comment on above: Performed By: #### C BC #### [facility] [address] [address] [address] Helga Salazar MCHC (RBC) [Mass/Vol] 32.2 g/dL Normal 29.9-35.2 [facility] Comment on above: Performed By: #### C BC #### [facility] [address] [address] [address] Helga Salazar MCV (RBC) [Entitic vol] 87.5 fL Normal 81.0-99.0 [facility] Comment on above: Performed By: #### C BC #### [facility] [address] [address] [address] Helga Salazar MONO # 0.6 103/ul Normal 0.3-0.8 [facility] Comment on above: Performed By: #### C BC #### [facility] [address] [address] [address] Helga Salazar Monocytes/100 WBC (Bld) 6.2 % Normal 1.7-12.0 [facility] Comment on above: Performed By: #### C BC #### [facility] [address] [place] [address] Dr. Helga Salazar NEUT # 7.7 103/ul Critically high 1.4-6.5 [facility] Comment on above: Performed By: #### C BC #### [facility] [address] [place] [address] Dr. Helga Salazar Neutrophils/100 WBC (Bld) 83.3 % Critically high 43.0-75.0 [facility] Comment on above: Performed By: #### C BC #### [facility] [address] [place] [address] Dr. Helga Salazar Platelet mean volume (Bld) [Entitic vol] 8.2 fL Critically low 9.5-13.5 [facility] Comment on above: Performed By: #### C BC #### [facility] [address] [place] [address] Dr. Helga Salazar PLT 247 103/ul Normal 150-450 [facility] Comment on above: Performed By: #### C BC #### [facility] [address] [place] [address] Dr. Helga Salazar RBC 3.59 106/ul Critically low 4.20-5.40 [facility] Comment on above: Performed By: #### C BC #### [facility] [address] [place], [place] [address] Dr. Helga Salazar WBC 9.3 103/ul Normal 4.0-11.0 [facility] Comment on above: Performed By: #### C BC #### [facility] [address] [place], [place] [address] Dr. Helga Salazar GLUCOSE - 1HRon 02-20-2022 Glucose [Mass/Vol] 114 mg/dL Critically high 74-106 [facility] Comment on above: Performed By: #### A 1C #### [facility] [address] [place], [place] [address] Dr. Helga Salazar US PREG ANATOMY SINGLEon [...] PERLA SALEH Date: 2021-12-25 17:46 Normal [facility] HEP B SURFACE ANTIGEN SCREEN on 10-25-2021 HBsAg Screen Negative Normal Negative [facility] Comment on above: Performed By: #### A 1C #### [facility] [address] [place] [address] Dr. Helga Salazar HEPATITIS C VIRUS AB W/ REFL EX QUANTon 10-25-2021 HCV AB <0.1 Normal 0.0-0.9 [facility] Comment on above: Performed By: #### H CVPCRR #### [facility] [address] [place] [address] Dr. Helga Salazar Interpretation: Comment Normal [facility] Comment on above: Result Comment: Nega tive Not infected with HCV, unless recent infection is suspected or other evidence exists to indicate HCV infection. Performed By: #### H CVPCRR #### [facility] [address] [place] [address] Dr. Helga Salazar HIV 1 AND 2 WITH REFLEXon HIV Screen 4th Generation wRfx Non-Reactive Normal Non Reactive [facility] Comment on above: Result Comment: HIV Negative HIV-1/HIV-2 antibodies and HIV-1 p24 antigen were NOT detected. There is no laboratory evidence of HIV infection. Performed By: #### C BC #### [facility] [address] [place] [address] Dr. Helga Salazar RPR QUANTon 10-25-2021 Rapid Plasma Reagin, Quant Non-Reactive Normal NonRea<1:1 [facility] Comment on above: Result Comment: Plea se Note: This test does not meet current guidelines for screening and diagnosis of syphilis. This test is intended for following treatment response in patients being treated for syphilis infection. To screen for syphilis infection, a reflex cascade that includes both RPR and a treponema-specific assay should be utilized, such as Treponema pallidum (Syphilis) Screening [place] ([id number]) or Rapid Plasma Reagin (RPR) Test With Reflex to Quantitative RPR and Confirmatory Treponema pallidum Antibodies (543149). Performed By: #### C BC #### [facility] [address] [place] [address] Dr. Helga Salazar RUBELLA AB IGGon 10-25-2021 Rubella Antibodies, IgG 1.54 index Normal Immune >0.99 [facility] Comment on above: Result Comment: Non- immune <0.90 Equivocal 0.90 - 0.99 Immune >0.99 Performed By: #### A 1C #### [facility] [address] [place] [address] Dr. Helga Salazar CBC AUTO DIFFon 10-24-2021 BASO # 0.0 103/ul Normal 0.0-0.1 [facility] Comment on above: Performed By: #### C BC #### [facility] [address] [place] [address] Dr. Helga Salazar Basophils/100 WBC (Bld) 0.2 % Normal 0.2-2.0 [facility] Comment on above: Performed By: #### C BC #### [facility] [address] [place] [address] Dr. Helga Salazar EO # 0.0 103/ul Normal 0.0-0.7 [facility] Comment on above: Performed By: #### C BC #### [facility] [address] [place] [address] Dr. Helga Salazar Eosinophils/100 WBC (Bld) 0.5 % Critically low 0.9-7.0 [facility] Comment on above: Performed By: #### C BC #### [facility] [address] [place] [address] Dr. Helga Salazar Erythrocyte distribution width (RBC) [Ratio] 12.3 % Normal 11.0-15.0 [facility] Comment on above: Performed By: #### C BC #### [facility] [address] [place] [address] Dr. Helga Salazar Hematocrit (Bld) [Volume fraction] 35.2 % Critically low 36.0-48.0 [facility] Comment on above: Performed By: #### C BC #### [facility] [address] [place] [address] Dr. Helga Salazar Hemoglobin (Bld) [Mass/Vol] 12.0 g/dL Normal 12.0-16.0 [facility] Comment on above: Performed By: #### C BC #### [facility] [address] [place] [address] Dr. Helga Salazar IG # 0.03 10e3/ul Normal 0.00-0.03 [facility] Comment on above: Performed By: #### C BC #### [facility] [address] [place] [address] Dr. Helga Salazar IG % 0.4 % Normal 0.0-0.5 [facility] Comment on above: Performed By: #### C BC #### [facility] [address] [place] [address] Dr. Helga Salazar LYMPH # 1.4 103/ul Normal 1.2-3.8 [facility] Comment on above: Performed By: #### C BC #### [facility] [address] [place] [address] Dr. Helga Salazar Lymphocytes/100 WBC (Bld) 16.8 % Critically low 20.5-60.0 [facility] Comment on above: Performed By: #### C BC #### [facility] [address] [place] [address] Dr. Helga Salazar MANUAL DIFF REQ NO Normal [facility] Comment on above: Performed By: #### C BC #### [facility] [address] [place] [address] Dr. Helga Salazar MCH (RBC) [Entitic mass] 30.3 pg Normal 26.7-34.0 [facility] Comment on above: Performed By: #### C BC #### [facility] [address] [place] [address] Dr. Helga Salazar MCHC (RBC) [Mass/Vol] 34.1 g/dL Normal 29.9-35.2 [facility] Comment on above: Performed By: #### C BC #### [facility] [address] [place] [address] Dr. Helga Salazar MCV (RBC) [Entitic vol] 88.9 fL Normal 81.0-99.0 [facility] Comment on above: Performed By: #### C BC #### [facility] [address] [place] [address] [address] Helga Salazar MONO # 0.6 103/ul Normal 0.3-0.8 [facility] Comment on above: Performed By: #### C BC #### [facility] [address] [place] [address] [address] Helga Salazar Monocytes/100 WBC (Bld) 6.7 % Normal 1.7-12.0 [facility] Comment on above: Performed By: #### C BC #### [facility] [address] [place] [address] Dr. Helga Salazar NEUT # 6.2 103/ul Normal 1.4-6.5 [facility] Comment on above: Performed By: #### C BC #### [facility] [address] [place] [address] Dr. Helga Salazar Neutrophils/100 WBC (Bld) 75.4 % Critically high 43.0-75.0 [facility] Comment on above: Performed By: #### C BC #### [facility] [address] [place] [address] Dr. Helga Salazar Platelet mean volume (Bld) [Entitic vol] 8.9 fL Critically low 9.5-13.5 [facility] Comment on above: Performed By: #### C BC #### [facility] [address] [place] [address] Dr. Helga Salazar PLT 268 103/ul Normal 150-450 [facility] Comment on above: Performed By: #### C BC #### [facility] [address] [place] [address] Dr. Helga Salazar RBC 3.96 106/ul Critically low 4.20-5.40 [facility] Comment on above: Performed By: #### C BC #### [facility] [address] [place] [address] Dr. Helga Salazar WBC 8.2 103/ul Normal 4.0-11.0 [facility] Comment on above: Performed By: #### C BC #### [facility] [address] [place] [address] [address] Helga Salazar CULTURE URINEon 10-24-2021 CULTURE URINE Culture Observations: HEAVY GROWTH OF MIXED GENITAL ESEQUIEL. NO POTENTIAL PATHOGENS SEEN. Normal [facility] Comment on above: Performed By: #### U RCX #### [facility] [address] [place] [address] [address] Helga Salazar GLYCOHEMOGLOBIN A1Con 2021 ADA RECOMMENDATION SEE BELOW Normal [facility] Comment on above: Result Comment: ADA RECOMMENDED LIMIT 4.0 - 6.0 ADA THERAPEUTIC TARGET < 7.0 ACTION SUGGESTED > 7.0 Performed By: #### A 1C #### [facility] [address] [place] [address] [address] Helga Salazar Glucose [Mass/Vol] 85 mg/dL Normal [facility] Comment on above: Performed By: #### A 1C #### [facility] [address] [place] [address] [address] Helga Salazar HbA1c (Bld) [Mass fraction] 4.6 % Normal 4.5-6.2 [facility] Comment on above: Performed By: #### A 1C #### [facility] [address] [place] [address] [address] Helga Salazar TYPE AND SCREENon 10-24-2021 TYPE AND SCREEN Negative Normal [facility] Comment on above: Performed By: #### C BC #### [facility] [address] [place] [address] [address] Helga Salazar US PREG TVon 10-10-2021 [...] by: PERLA SALEH Date: 2021-10-10 16:54 Normal [facility] XR wrist BI 2Von 12-07-2020 XR wrist BI 2V [address] [address] XRay Report Signed Patient: Homa Bae MR#: [id number] : 1990 Acct:[id number] Age/Sex: 30 / F ADM Date: 12/07/20 [place] [facility] [place]: Type: [facility] Attending Dr: Lul Ocampo DO Ordering [...] Gideon Londono M.D.12/07/2020 12:59 PM Dictation Location: [place] [address] Transcribed By: [facility] 12/07/20 1259 Dictated By: Gideon Londono MD 12/07/20 1253 Signed By: 12/07/20 1259 Normal [facility] XR wrist BI 2V [facility] [employer] Other XR wrist BI 2V [facility] [employer] Other XR wrist BI 2V [address] [place] [address] [employer] Other [place]R [place] BI 2[place] [address] No rt [employer] Other XR wrist BI 2V XRay Report [employer] Other XR wrist BI 2V Signed [employer] Other XR wrist BI 2V Patient: Homa Bae MR#: [id number] [employer] Other XR wrist BI 2V [id number] [employer] Other XR wrist BI 2V : 1990 Acct:[id number] [employer] Other XR wrist BI 2V Age/Sex: 30 / F ADM Date: 12/07/20 [employer] Other XR wrist BI 2V [place] [facility] [place]: Type: [facility] [employer] Other XR wrist BI 2V Attending Dr: Lul Ocampo DO [employer] Other XR wrist BI 2V Ordering Provider: Lul Ocampo DO [employer] Other XR wrist BI 2V Date of Service: 12/07/20 [employer] Other XR wrist BI 2V XR/XR wrist BI 2V: Other closed extra-articular fracture of distal end of [employer] Other XR wrist BI 2V left [employer] Other XR wrist BI 2V Copies to: Lul Ocampo DO [facility] Other XR wrist BI 2V CLINICAL HISTORY: Follow-up internal fixation of distal radial fracture on the left and fracture of [employer] Other XR wrist BI 2V the distal right radius. Date of injury on 10/02/2020. [employer] Other XR wrist BI 2V XR wrist BI 2V [employer] Other XR wrist BI 2V COMPARISON: 11/09/2020 [employer] Other XR wrist BI 2V FINDINGS: AP and lateral views of the bilateral wrists were obtained. The patient is status post [facility] Other XR wrist BI 2V internal fixation of distal left radial fracture with placement of a volar plate and multiple [employer] Other XR wrist BI 2V screws. There is further obliteration of the radiolucent fracture line at the dorsal aspect of the [employer] Other XR wrist BI 2V radius since prior examination. There is stable bony alignment. [employer] Other XR wrist BI 2V The distal right radius shows a healing or healed hairline fracture with stable alignment. [employer] Other XR wrist BI 2V XR/XR wrist BI 2V [facility] Other XR wrist BI 2V IMPRESSION: [employer] Other XR wrist BI 2V INTERNAL FIXATION OF THE DISTAL LEFT RADIAL FRACTURE, STABLE ALIGNMENT. [employer] Other XR wrist BI 2V A HEALING OR HEALED DISTAL RIGHT RADIAL FRACTURE. [employer] Other XR wrist BI 2V Impression dictated by: Gideon Londono M.D.12/07/2020 12:59 PM [employer] Other XR wrist BI 2V Dictation Location: [place] [address] [employer] Other XR wrist BI 2V Transcribed By: JESSICA 12/07/20 1259 [employer] Other XR wrist BI 2V Dictated By: Gideon Londono MD 12/07/20 1253 [employer] Other XR wrist BI 2V Signed By: [employer] Other XR wrist BI 2V 12/07/20 1259 [employer] Other XR wrist BI 2Von 11-09-2020 XR wrist BI 2V [facility] Main [place] [address] [place] [address] XRay Report Signed Patient: Homa Bae MR#: [id number] : 1990 Acct:[id number] Age/Sex: 30 / F ADM Date: 11/09/20 [place]: [facility] [place]: Type: [facility] CLI Attending Dr: Lul Ocampo DO Ordering [...] Cammie Jiang M.D.11/09/2020 1:31 PM Dictation Location: [place] [address] Transcribed By: [facility] 11/09/20 1331 Dictated By: Cammie Jiang MD 11/09/20 1328 Signed By: 11/09/20 1331 Normal [facility] HCG,Urineon 10-10-2020 Beta HCG ( test) Ql (U) Negative Normal [facility] Comment on above: Result Comment: PERF ORMED BY: [address] [place] [place] [address] PATHOLOGIST [employer] PATTERNMAKER MAX MANE M.D. Performed By: #### U HCG #### [address] XR wrist LT min 3V*on 2020 XR wrist LT min 3V* [facility] Main [address] [address] XRay Report Signed Patient: Homa Bae MR#: [id number] : 1990 Acct:[id number] Age/Sex: 30 / F ADM Date: 10/10/20 Loc: [place] Room: Type: [facility] Attending Dr: Lul Ocampo DO Ordering [...] Dillan Fischer M.D.10/10/2020 1:45 PM Dictation Location: [place] [address] Transcribed By: [facility] 10/10/20 1345 Dictated By: Dillan Fischer DO 10/10/20 1338 Signed By: 10/10/20 1345 Normal [facility] XR wrist RT 2Von 10-10-2020 XR wrist RT 2V [address] [address] XRay Report Signed Patient: Homa Bae MR#: [id number] : 1990 Acct:[id number] Age/Sex: 30 / F ADM Date: 10/10/20 Loc: [place] Room: Type: [facility] Attending Dr: Lul Ocampo DO Ordering [...] River Rice M.D.10/10/2020 2:17 PM Dictation Location: [place] [address] Transcribed By: JESSICA 10/10/20 141 Dictated By: River Rice II, MD 10/10/20 141 Signed By: 10/10/20 141 Normal [facility] COVID-19 FRon 10-08-2020 SARS-CoV-2 (COVID-19) RNA SABRINA+probe Ql (Unsp spec) Negative Normal Negative [facility] Comment on above: Order Comment: Healt hcare Worker?: N Result Comment: Testing for SARS-CoV-2 by RT-PCR This test was developed and its performance characteristics determined by [employer] and validated at the [facility]. This test has not been [...] is terminated or revoked sooner. PERFORMED BY: [place] [address] PATHOLOGIST [employer] PATTERN[employer]KER MAX MANE M.D. Performed By: #### C OVID 19 [facility] #### [place] [id number] [facility] XR elbow LT min 3V*on 2020 XR elbow LT min 3V* [facility] [place] [address] XRay Report Signed Patient: Homa Bae MR#: [id number] : 1990 Acct:[id number] Age/Sex: 30 / F ADM Date: 10/07/20 Loc: ER Room: Type: [facility] ER Attending Dr: Ordering Provider: Francisco Beverly [...] River Rice M.D.10/07/2020 5:18 PM Dictation Location: [place] [address] Transcribed By: [facility] 10/07/201717 Dictated By: River Rice II, MD 10/07/201714 Signed By: 10/07/201717 Normal [facility] XR wrist min BI 3Von 021 XR wrist min BI 3V [facility] Main [place] [id number] XRay Report Signed Patient: Homa Bae MR#: [id number] : 1990 Acct:[id number] Age/Sex: 30 / F ADM Date: 10/07/20 [...] River Rice M.D.10/07/2020 5:15 PM Dictation Location: [place] [address] Transcribed By: [facility] 10/07/201714 Dictated By: River Rice II, MD 10/07/201712 Signed By: 10/07/201714 [facility] Vital Signs Date Time Vital Sign Value Performing Clinician Izaiah chappell 04-29-2023 13:47-0500 Body mass index (BMI) [Ratio] 28.49 kg/m2 Yanick Van WEEKEND RECEPTIONIST-SUPERINTENDENT [employer] Work Phone: [facility] 04-29-2023 13:47-0500 Body weight 75.3 kg Yanick Bolivar WEEKEND RECEPTIONIST-SUPERINTENDENT [employer] Work Phone: [facility] 04-29-2023 13:47-0500 Diastolic blood pressure 72 mm[Hg] Yanick Van WEEKEND RECEPTIONIST-SUPERINTENDENT [employer] Work Phone: [facility] 04-29-2023 13:47-0500 Heart rate 85 /min Yanick Swathi-Nossek WEEKEND RECEPTIONIST-SUPERINTENDENT [employer] Work Phone: [facility] 04-29-2023 13:47-0500 Systolic blood pressure 110 mm[Hg] Yanick Swathi-Nossek WEEKEND RECEPTIONIST-SUPERINTENDENT METERS Work Phone: [facility] Encounters Encounter Date Encounter Type Care Provider Facility Start: 12-09-2023 End: 12-09-2023 ambulatory SERA SEGURA Not Available Start: 11-09-2023 End: 11-09-2023 ambulatory IVANIA RENEE Not Available Start: 10-23-2023 End: 10-23-2023 ambulatory YANICK M SWATHI-NOSSEK Not Available Start: 10-09-2023 End: 10-09-2023 ambulatory YANICK SWATHI-NOSSEK Not Available Start: 07-24-2023 End: 07-24-2023 ambulatory YANICK M SWATHI-NOSSEK Not Available Start: 05-22-2023 End: 05-22-2023 ambulatory YANICK M SWATHI-NOSSEK Not Available Start: 05-07-2023 End: 05-07-2023 ambulatory ESTEFANI Driver KEY Not Available Start: 04-29-2023 Bamboo flowsheet Yanick M Swathi-Nossek WEEKEND RECEPTIONIST-SUPERINTENDENT METERS Work Phone: [facility] Start: 04-29-2023 Bamboo flowsheet Yanick M Swathi-Nossek WEEKEND RECEPTIONIST-SUPERINTENDENT [employer]ERS Work Phone: [facility] Start: 04-29-2023 End: 04-29-2023 Office outpatient visit 25 minutes Yanick M Swathi-Nossek WEEKEND RECEPTIONIST-SUPERINTENDENT [employer]ERS Work Phone: [facility] Comment on above: Anxiety; Attention deficit hyperactivity [...] follow up vis it related to original [facility] Procedures Date Procedure Procedure Detail [...] patient 05/22/2023 8:30 AM EST Telemedicine [facility] [address] [place] [address] Yanick Bolivar, WEEKEND RECEPTIONIST-SUPERINTENDENT [employer] [address] [place] [address] [facility] Start: 05-07-2023 End: 05-07-2023 Social Work 05/07/2023 1:00 PM EST Social Work [facility] [address] [place] [address] Estefani Key, [facility] [address] [place] [address] [facility] Start: 04-29-2023 End: 04-29-2023 Patient encounter procedure 04/29/2023 2:00 PM EST Office Visit [facility] [address] [facility] [address] [place] [address] Yanick Bolivar, WEEKEND RECEPTIONIST-[facility] [address] [facility] [address] [place] [address] Arrived [facility] Comment on above: Arrived Start: 11-14-2022 Influenza vaccination Influenza Vacc ine (#1) [facility] Start: 2020 Screening for malign ant neoplasm of cervix [facility] Start: 07-15-2011 Screening for malign ant neoplasm of cervix Pap Smear [facility] Payers Date Payer Category Payer Private Health Insurance [facility] [id number] 2022-Present [address] [address] [place] [address] [id number] 2022 Private Health Insurance [id number] 1990 Unknown [id number] 2.16.840.1.281943.3.579. 2.593 1990 Unknown [id number] 2.16.840.1.976553.3.579. 2.593 1990 Unknown [id number] 2.16.840.1.936010.3.579. 2.593 1990 Unknown [id number] 2.16.840.1.244473.3.579. 2.593 1990 Unknown [id number] 2.16.840.1.768011.3.579. 2.593 1990 Unknown [id number] 2.16.840.1.663208.3.579. 2.593 1990 Unknown [id number] 2.16.840.1.236249.3.579. 2.593 1990 Unknown [id number] 2.16.840.1.585207.3.579. 2.593 1990 Unknown [id number] 2.16.840.1.108140.3.579. 2.59 1990 Unknown [id number] 2.16.840.1.460335.3.579. 2.59 1990 Unknown [id number] 2.16.840.1.874850.3.579. 2.59 1990 Unknown [id number] 2.16.840.1.007996.3.579. 2.593 1990 Unknown [id number] 2.16.840.1.547081.3.579. 2.1258 1990 Unknown [id number] 2.16.840.1.188357.3.579. 2.1258 1990 Unknown [id number] 2.16.840.1.202715.3.579. 2.125 1990 Unknown [id number] 2.16.840.1.243469.3.579. 2.1258 1990 Unknown [id number] 2.16.840.1.660941.3.579. 2.1258 1990 Unknown [id number] 2.16.840.1.625803.3.579. 2.1259 1990 Unknown [id number] 2.16.840.1.232383.3.579. 2.9 1990 Unknown [id number] 2.16.840.1.871463.3.579. 2.9 1990 Unknown [id number] 2.16.840.1.231988.3.579. 2.9 1959 Private Health Insurance [id number] Private Health Insurance [id number] 2.16.840.1.503395.19 Social History Date Type Detail Facility Start: 03-17-2023 End: 04-29-2023 Sex Assigned At [place] [facility] Other Start: 03-17-2023 Tobacco smoking status KSIS Never smoked tobacco [facility] Start: 03-17-2023 [...] of Present illness Narrative 04-29-2023 Yanick Bolivar, WEEKEND RECEPTIONIST-SUPERINTENDENT METERS - 04/29/2023 2:00 PM Abhishek Melgar, PRODUCT STRATEGY DIRECTOR - 04/29/2023 2:00 PM EST Note Date [...] Medical problems since last visit. Working at [employer] and its better working there. Stressors include [...] per day of coffee. Education: Masters program online-[employer]. Children: 4year old father sees child qother weekend. Legal problems: none age 17 -curfew violation-Probation violation -in penitentiary -5 days. Living with: Boyfriend. 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 Pets: dog-Albino. no Sexually active. no Verbal [...] with a meds. documented in this encounter [facility] Evaluation note 12-07-2020 Note Date & [...] Other specified postprocedural states (ICD-10 - Z98.890) [facility] Other Evaluation note Note Date & Type Note Facility Evaluation note Diagnosis Anxiety Anxiety state, unspecified Attention deficit hyperactivity disorder (ADHD), predominantly inattentive type (CMS/HCC) documented in this encounter [facility] History general Narrative - Reported Note Date & Type Note Facility History general Narrative - Reported Type Surgical History tonsillectomy Surgical History leap Surgical History [facility] Other Summary Purpose Family History No Family History Records FoundNo Family History Records FoundNo Family History Records Found Advance Directives No Advanced Directives Records FoundNo Advanced Directives Records FoundNo Advanced Directives Records Found Additional Source Comments INFORMATION SOURCE (unrecogn ized section and content) DATE CREATED AUTHOR 04/07/2021 [facility] DATE CREATED AUTHOR AUTHOR'S ORGANIZ ATION 05/28/2022 [facility] DATE CREATED AUTHOR AUTHOR'S ORGANIZ ATION 12/11/2023 [facility] dical Specialists EPIC REASON FOR VISIT (unrecogniz ed section and content) Reason Comments Med Management Follow-up Care Teams (unrecognized sec tion and content) Interactive Multimedia Designer Relationship Specialty Start Date End Date Daniel Comer DO [address] [place] [address] PCP - General Family Medicine 07/22/22 Interactive Multimedia Designer Relationship Specialty Start Date End Date Daniel Comer DO [address] [place] [address] PCP - General Family Medicine 07/22/22 FOR [...] BE BASED ON THE PRIMARY CLINICAL RECORDS. [facility]. provides no warranty or guarantee of the accuracy or completeness of information in this document.
[2023-12-14 10:33] LABS: Basophils Percent Auto 0.2 % (0.2-2.0); Eosinophils Absolute Auto 0.1 10^3/uL (0.0-0.7); Eosinophils Percent Auto 0.7 % (0.9-7.0); Hematocrit 34.3 % (36.0-48.0); Hemoglobin 11.4 g/dL (12.0-16.0); Immature Granulocytes Abs Auto 0.04 10^3/uL (0.00-0.03); Immature Granulocytes Pct Auto 0.5 % (0.0-0.5); Lymphocytes Absolute Auto 1.3 10^3/uL (1.2-3.8); Lymphocytes Percent Auto 14.7 % (20.5-60.0); Mean Corpuscular HGB Conc 33.2 g/dL (29.9-35.2); Mean Corpuscular Hemoglobin 30.2 pg (26.7-34.0); Mean Platelet Volume 8.8 fL (9.5-13.5); Monocytes Absolute Auto 0.5 10^3/uL (0.3-0.8); Monocytes Percent Auto 5.9 % (1.7-12.0); Neutrophils Absolute Auto 6.8 10^3/uL (1.4-6.5); Platelet Count 286 10^3/uL (150-450); Red Blood Count 3.77 10^6/uL (4.20-5.40); Red Cell Distribution Width 12.5 % (11.0-15.0); White Blood Count 8.7 10^3/uL (4.0-11.0)
[2023-12-14 11:29] LABS: Estimated Average Glucose 82 mg/dL; Glycohemoglobin A1C 4.5 % (4.5-6.2)
[2023-12-15 06:09] LABS: HBsAg Screen Negative (Negative); HCV Ab Non Reactive (Non Reactive); HIV Ab/p24 Ag Screen Non Reactive (Non Reactive)
[2023-12-15 07:09] LABS: Rubella Antibodies, IgG 1.19 index (Immune >0.99)
[2023-12-15 12:10] LABS: Rapid Plasma Reagin, Quant Non Reactive titer (NonRea<1:1)
== END 2023-12-14 09:52 | disposition home or self-care (01) ==
LOC: LAB 09:52
PROVIDERS: PCP Family Medicine; Visit Provider Obstetrics & Gynecology
DX: N92.6 Irregular menstruation, unspecified (principal)
CPT/HCPCS: 36415; 83036; 85025; 86592; 86762; 86803; 86850; 86900; 86901; 87086; 87340; 87389

== ENCOUNTER 2024-01-04 10:57 | Outpatient (OUT) | payer OTHER, SELFPAY ==
--- OUTSIDE RECORDS SUMMARY | 2024-01-04 11:00 | XMS_ITS | CCD ---
Author Organization [facility] Care Team Providers Care Technical Sales Associate Name Role Phone Lul Ocampo Unavailable KARNIIK [...] source) banana allergenic extract Drug Allergy hives [facility] [employer] Other (4 sources) Cat dander Drug allergy 03-17-2023 Unknown [facility] [employer] [facility] Other (1 source) Banana Extract Drug Allergy 03-16-2004 [facility] Repository (1 source) Latex Drug allergy (disorder) 03-16-2009 [facility] Rep[facility] (1 source) kiwi Drug allergy (disorder) 03-16-2004 [facility] Repository (3 sources) Banana Extract Drug Allergy 08-04-2019 Unknown [facility] re (3 sources) Octacosanol Drug Allergy 08-04-2019 Unknown [facility] Healthcare Medications Current Medications Medication Drug [...] 05-20-2022 BASO # 0.0 103/ul Normal 0.0-0.1 [facility] Comment on above: Performed By: #### C BC #### [facility] [address] [place] [address] Dr. Helga Salazar Basophils/100 WBC (Bld) 0.2 % Normal 0.2-2.0 [facility] Comment on above: Performed By: #### C BC #### [facility] [address] [place] [address] Dr. Helga Salazar EO # 0.0 103/ul Normal 0.0-0.7 [facility] Comment on above: Performed By: #### C BC #### [facility] [address] [place] [address] Dr. Helga Salazar Eosinophils/100 WBC (Bld) 0.1 % Critically low 0.9-7.0 [facility] Comment on above: Performed By: #### C BC #### [facility] [address] [place] [address] Dr. Helga Salazar Erythrocyte distribution width (RBC) [Ratio] 16.0 % Critically high 11.0-15.0 [facility] Comment on above: Performed By: #### C BC #### [facility] [address] [place] [address] Dr. Helga Salazar Hematocrit (Bld) [Volume fraction] 30.1 % Critically low 36.0-48.0 [facility] Comment on above: Performed By: #### C BC #### [facility] [address] [place] [address] Dr. Helga Salazar Hemoglobin (Bld) [Mass/Vol] 10.0 g/dL Critically low 12.0-16.0 [facility] Comment on above: Performed By: #### C BC #### [facility] [address] [place] [address] Dr. Helga Salazar IG # 0.06 10e3/ul Critically high 0.00-0.03 [facility] Comment on above: Performed By: #### C BC #### [facility] [address] [place] [address] Dr. Helga Salazar IG % 0.5 % Normal 0.0-0.5 [facility] Comment on above: Performed By: #### C BC #### [facility] [address] [place] [address] Dr. Helga Salazar LYMPH # 1.2 103/ul Normal 1.2-3.8 [facility] Comment on above: Performed By: #### C BC #### [facility] [address] [place] [address] Dr. Helga Salazar Lymphocytes/100 WBC (Bld) 10.5 % Critically low 20.5-60.0 [facility] Comment on above: Performed By: #### C BC #### [facility] [address] [place] [address] Dr. Helga Salazar MANUAL DIFF REQ NO Normal [facility] Comment on above: Performed By: #### C BC #### [facility] [address] [place] [address] Dr. Helga Salazar MCH (RBC) [Entitic mass] 27.9 pg Normal 26.7-34.0 [facility] Comment on above: Performed By: #### C BC #### [facility] [address] [place] [address] Dr. Helga Salazar MCHC (RBC) [Mass/Vol] 33.2 g/dL Normal 29.9-35.2 [facility] Comment on above: Performed By: #### C BC #### [facility] [address] [place] [address] Dr. Helga Salazar MCV (RBC) [Entitic vol] 84.1 fL Normal 81.0-99.0 [facility] Comment on above: Performed By: #### C BC #### [facility] [address] [place] [address] Dr. Helga Salazar MONO # 0.9 103/ul Critically high 0.3-0.8 [facility] Comment on above: Performed By: #### C BC #### [facility] [address] [place] [address] Dr. Helga Salazar Monocytes/100 WBC (Bld) 8.1 % Normal 1.7-12.0 [facility] Comment on above: Performed By: #### C BC #### [facility] [address] [place] [address] Dr. Helga Salazar NEUT # 9.4 103/ul Critically high 1.4-6.5 [facility] Comment on above: Performed By: #### C BC #### [facility] [address] [place] [address] Dr. Helga Salazar Neutrophils/100 WBC (Bld) 80.6 % Critically high 43.0-75.0 [facility] Comment on above: Performed By: #### C BC #### [facility] [address] [place] [address] Dr. Helga Salazar Platelet mean volume (Bld) [Entitic vol] 8.8 fL Critically low 9.5-13.5 [facility] Comment on above: Performed By: #### C BC #### [facility] [address] [place] [address] Dr. Helga Salazar PLT 206 103/ul Normal 150-450 [facility] Comment on above: Performed By: #### C BC #### [facility] [address] [place] [address] Dr. Helga Salazar RBC 3.58 106/ul Critically low 4.20-5.40 [facility] Comment on above: Performed By: #### C BC #### [facility] [address] [place] [address] Dr. Helga Salazar WBC 11.6 103/ul Critically high 4.0-11.0 [facility] Comment on above: Performed By: #### C BC #### [facility] [address] [place] [address] Dr. Helga Salazar CBC AUTO DIFFon 05-19-2022 BASO # 0.0 103/ul Normal 0.0-0.1 [facility] Comment on above: Performed By: #### A 1C #### [facility] [address] [place] [address] Dr. Helga Salazar Basophils/100 WBC (Bld) 0.2 % Normal 0.2-2.0 [facility] Comment on above: Performed By: #### A 1C #### [facility] [address] [place] [address] Dr. Helga Salazar EO # 0.0 103/ul Normal 0.0-0.7 [facility] Comment on above: Performed By: #### A 1C #### [facility] [address] [place] [address] Dr. Helga Salazar Eosinophils/100 WBC (Bld) 0.0 % Critically low 0.9-7.0 [facility] Comment on above: Performed By: #### A 1C #### [facility] [address] [place] [address] Dr. Helga Salazar Erythrocyte distribution width (RBC) [Ratio] 15.9 % Critically high 11.0-15.0 [facility] Comment on above: Performed By: #### A 1C #### [facility] [address] [place] [address] Dr. Helga Salazar Hematocrit (Bld) [Volume fraction] 33.7 % Critically low 36.0-48.0 [facility] Comment on above: Performed By: #### A 1C #### [facility] [address] [place] [address] Dr. Helga Salazar Hemoglobin (Bld) [Mass/Vol] 11.5 g/dL Critically low 12.0-16.0 [facility] Comment on above: Performed By: #### A 1C #### [facility] [address] [address] [address] Helga Salazar IG # 0.07 10e3/ul Critically high 0.00-0.03 [facility] Comment on above: Performed By: #### A 1C #### [facility] [address] [place] [address] Dr. Helga Salazar IG % 0.6 % Critically high 0.0-0.5 [facility] Comment on above: Performed By: #### A 1C #### [facility] [address] [place] [address] Dr. Helga Salazar LYMPH # 0.9 103/ul Critically low 1.2-3.8 [facility] Comment on above: Performed By: #### A 1C #### [facility] [address] [place] [address] Dr. Helga Salazar Lymphocytes/100 WBC (Bld) 8.1 % Critically low 20.5-60.0 [facility] Comment on above: Performed By: #### A 1C #### [facility] [address] [place] [address] Dr. Helga Salazar MANUAL DIFF REQ NO Normal [facility] Comment on above: Performed By: #### A 1C #### [facility] [address] [place] [address] Dr. Helga Salazar MCH (RBC) [Entitic mass] 28.3 pg Normal 26.7-34.0 [facility] Comment on above: Performed By: #### A 1C #### [facility] [address] [place] [address] Dr. Helga Salazar MCHC (RBC) [Mass/Vol] 34.1 g/dL Normal 29.9-35.2 [facility] Comment on above: Performed By: #### A 1C #### [facility] [address] [place] [address] Dr. Helga Salazar MCV (RBC) [Entitic vol] 82.8 fL Normal 81.0-99.0 [facility] Comment on above: Performed By: #### A 1C #### [facility] [address] [place] [address] Dr. Helga Salazar MONO # 0.6 103/ul Normal 0.3-0.8 [facility] Comment on above: Performed By: #### A 1C #### [facility] [address] [place] [address] Dr. Helga Salazar Monocytes/100 WBC (Bld) 5.6 % Normal 1.7-12.0 [facility] Comment on above: Performed By: #### A 1C #### [facility] [address] [place] [address] Dr. Helga Salazar NEUT # 9.7 103/ul Critically high 1.4-6.5 [facility] Comment on above: Performed By: #### A 1C #### [facility] [address] [place] [address] Dr. Helga Salazar Neutrophils/100 WBC (Bld) 85.5 % Critically high 43.0-75.0 [facility] Comment on above: Performed By: #### A 1C #### [facility] [address] [place] [address] Dr. Helga Salazar Platelet mean volume (Bld) [Entitic vol] 8.6 fL Critically low 9.5-13.5 [facility] Comment on above: Performed By: #### A 1C #### [facility] [address] [place] [address] Dr. Helga Salazar PLT 198 103/ul Normal 150-450 [facility] Comment on above: Performed By: #### A 1C #### [facility] [address] [place] [address] Dr. Helga Salazar RBC 4.07 106/ul Critically low 4.20-5.40 [facility] Comment on above: Performed By: #### A 1C #### [facility] [address] [place] [address] Dr. Helga Salazar WBC 11.4 103/ul Critically high 4.0-11.0 [facility] Comment on above: Performed By: #### A 1C #### [facility] [address] [place] [address] Dr. Helga Salazar DRUG SCREEN RAPID (URINE)on 05-19-2022 AMP Negative Normal NEGATIVE [facility] Comment on above: Performed By: #### D RUGRPD #### [facility] [address] [place] [address] Dr. Helga Salazar BAR Negative Normal NEGATIVE [facility] Comment on above: Performed By: #### D RUGRPD #### [facility] [address] [place] [address] Dr. Helga Salazar BUP Negative Normal NEGATIVE [facility] Comment on above: Performed By: #### D RUGRPD #### [facility] [address] [place] [address] Dr. Helga Salazar BZO Negative Normal NEGATIVE [facility] Comment on above: Performed By: #### D RUGRPD #### [facility] [address] [place] [address] Dr. Helga Salazar TONY Negative Normal NEGATIVE [facility] Comment on above: Performed By: #### D RUGRPD #### [facility] [address] [place] [address] Dr. Helga Salazar CUT-OFFS SEE BELOW Normal [facility] Comment on above: Result Comment: AMP (Amphetamine): 500ng/mL, BAR (Barbituates): 200 ng/mL, BZO (Benzodiazepines): 150 ng/mL, BUP (Buprenorphine): 10 ng/mL, TONY (Cocaine): 150 ng/mL, mAMP (Methamphetamine): 500 ng/mL, MTD (Methadone): 200 ng/mL, OPI (Opiates): 100 ng/mL, OXY (Oxycodone): 100 ng/mL, PCP (Phencyclidine): 25 ng/mL, PPX (Propoxyphene): 300 ng/mL, THC (Cannabinoids): 50 ng/mL, TCA (Trycyclic Antidepressants): 300 ng/mL Performed By: #### D RUGRPD #### [facility] [address] [place] [address] Dr. Helga Salazar DRUG CUT HEADER DRUG CLASS TEST SYSTEM CUT-OFF CONCENTRATIONS ARE FOLLOWS: Normal [facility] Comment on above: Performed By: #### D RUGRPD #### [facility] [address] [address] [address] Helga Salazar mAMP Negative Normal NEGATIVE [facility] Comment on above: Performed By: #### D RUGRPD #### [facility] [address] [place] [address] Dr. Helga Salazar MTD Negative Normal NEGATIVE [facility] Comment on above: Performed By: #### D RUGRPD #### [facility] [address] [place] [address] Dr. Helga Salazar OPI Negative Normal NEGATIVE [facility] Comment on above: Performed By: #### D RUGRPD #### [facility] [address] [place] [address] Dr. Helga Salazar OXY Negative Normal NEGATIVE [facility] Comment on above: Performed By: #### D RUGRPD #### [facility] [address] [place] [address] Dr. Helga Salazar PCP Negative Normal NEGATIVE [facility] Comment on above: Performed By: #### D RUGRPD #### [facility] [address] [address] [address] Helga Salazar PPX Negative Normal NEGATIVE [facility] Comment on above: Performed By: #### D RUGRPD #### [facility] [address] [address] [address] Helga Salazar TCA Negative Normal NEGATIVE [facility] Comment on above: Performed By: #### D RUGRPD #### [facility] [address] [place] [address] Dr. Helga Salazar THC Negative Normal NEGATIVE [facility] Comment on above: Performed By: #### D RUGRPD #### [facility] [address] [address] [address] Helga Salazar TYPE AND SCREENon 05-19-2022 TYPE AND SCREEN Negative Normal [facility] Comment on above: Performed By: #### T NS #### [facility] [address] [place] [address] Dr. Helga Salazar PREG AMNIOTIC FLUID VOLUM [...] by: MICHEAL ZAPATA Date: 2022-05-17 18:25 Normal [facility] US PREG AMNIOTIC FLUID VOLUM Mor 05-15-2022 [...] by: MICHEAL ZAPATA Date: 2022-05-15 15:41 Normal [facility] US PREG BIOPHY W NON STRESSo n [...] by: MICHEAL ZAPATA Date: 2022-05-13 16:00 Normal [facility] US PREG BIOPHY W NON STRESSo n [...] by: PERLA SALEH Date: 2022-05-12 16:16 Normal [facility] GROUP B STREP CULTUREon S. agalactiae Ag Ql (Unsp spec) Culture Observations: NEGATIVE FOR GROUP B STREPTOCOCCUS. Normal [facility] Comment on above: Performed By: #### C BC #### [facility] [address] [place] [address] Dr. Helga Salazar PAP ACOG PANEL 2: 30 to 65on 03-12-2022 . . Normal [facility] Comment on above: Result Comment: Perf ormed at: [facility] Performed By: #### [id number] #### [facility] [address] [address] [address] Helga Salazar Age Gdln ACOG Testing - [facility] Comment on above: Performed By: #### [id number] #### [facility] [address] [place] [address] Dr. Helga Salazar DIAGNOSIS: Comment Normal [facility] Comment on above: Result Comment: NEGA TIVE FOR INTRAEPITHELIAL LESION OR MALIGNANCY. THIS SPECIMEN WAS RESCREENED PART OF OUR GALVANIZING POT RUNNER PROGRAM. Performed at: [facility] Performed By: #### [id number] #### [facility] [address] [address] [address] Helga Salazar HPV Aptima Negative Normal [facility] Comment on above: Result Comment: This nucleic acid amplification test detects fourteen high-risk HPV types (16,18,31,33,35,39,45,51,52,56,58,59,66,68) without differentiation. Performed at: =G Performed By: #### [id number] #### [facility] [address] [address] [address] Helga Salazar HPV Genotype Reflex Comment Normal [facility] Comment on above: Result Comment: Crit errosi not met, HPV Genotype not performed. Performed at: [facility] Performed By: #### [id number] #### [facility] [address] [place] [address] Dr. Helga Salazar Methodology: Comment Normal [facility] Comment on above: Result Comment: This liquid based ThinPrep(R) pap test was screened with the use of an image guided system. Performed at: [facility] Performed By: #### [id number] #### [facility] [address] [place] [address] Dr. Helga Salazar Note: Comment Normal [facility] Comment on above: Result Comment: The Pap smear is a screening test designed to aid in the detection of premalignant and malignant conditions of the uterine cervix. It is not a diagnostic procedure and should not be used as the sole means of detecting cervical cancer. Both false-positive and false-negative reports do occur. . Performed at: [facility] Performed By: #### [id number] #### [facility] [address] [place] [address] Dr. Helga Salazar Performed by: Comment Normal [facility] Comment on above: Result Comment: Saji Ornelas, Channel Worker (ASCP) Performed at: [facility] Performed By: #### [id number] #### [facility] [address] [place] [address] Dr. Helga Salazar QC reviewed by: Comment Normal [facility] Comment on above: Result Comment: Jayson Mcgovern Sr, Channel Worker (ASCP) Performed at: [facility] Performed By: #### [id number] #### [facility] [address] [place] [address] Dr. Helga Salazar Specimen adequacy: Comment Normal [facility] Comment on above: Result Comment: Sati sfactory for evaluation. No endocervical component is identified. The absence of an endocervical component was confirmed by an additional screening evaluation. Performed at: [facility] Performed By: #### [id number] #### [facility] [address] [place] [address] Dr. Helga Salazar CHLAMYDIA/GONOCOCCUS SABRINA (SW AB/URINE/PAPon 03-05-2022 Chlamydia trachomatis, SABRINA Negative Normal Negative [facility] Comment on above: Performed By: #### C T/NGNA #### [facility] [address] [place] [address] Dr. Helga Salazar Neisseria gonorrhoeae, SABRINA Negative Normal Negative [facility] Comment on above: Performed By: #### C T/NGNA #### [facility] [address] [place] [address] Dr. Helga Salazar CBC AUTO DIFFon 02-20-2022 BASO # 0.0 103/ul Normal 0.0-0.1 [facility] Comment on above: Performed By: #### C BC #### [facility] [address] [place] [address] Dr. Helga Salazar Basophils/100 WBC (Bld) 0.2 % Normal 0.2-2.0 [facility] Comment on above: Performed By: #### C BC #### [facility] [address] [place] [address] Dr. Helga Salazar EO # 0.0 103/ul Normal 0.0-0.7 [facility] Comment on above: Performed By: #### C BC #### [facility] [address] [place] [address] Dr. Helga Salazar Eosinophils/100 WBC (Bld) 0.3 % Critically low 0.9-7.0 [facility] Comment on above: Performed By: #### C BC #### [facility] [address] [place] [address] Dr. Helga Salazar Erythrocyte distribution width (RBC) [Ratio] 12.7 % Normal 11.0-15.0 [facility] Comment on above: Performed By: #### C BC #### [facility] [address] [place] [address] Dr. Helga Salazar Hematocrit (Bld) [Volume fraction] 31.4 % Critically low 36.0-48.0 [facility] Comment on above: Performed By: #### C BC #### [facility] [address] [address] [address] Helga Salazar Hemoglobin (Bld) [Mass/Vol] 10.1 g/dL Critically low 12.0-16.0 [facility] Comment on above: Performed By: #### C BC #### [facility] [address] [address] [address] Helga Salazar IG # 0.06 10e3/ul Critically high 0.00-0.03 [facility] Comment on above: Performed By: #### C BC #### [facility] [address] [address] [address] Helga Salazar IG % 0.6 % Critically high 0.0-0.5 [facility] Comment on above: Performed By: #### C BC #### [facility] [address] [address] [address] Helga Salazar LYMPH # 0.9 103/ul Critically low 1.2-3.8 [facility] Comment on above: Performed By: #### C BC #### [facility] [address] [address] [address] Helga Salazar Lymphocytes/100 WBC (Bld) 9.4 % Critically low 20.5-60.0 [facility] Comment on above: Performed By: #### C BC #### [facility] [address] [address] [address] Helga Salazar MANUAL DIFF REQ NO Normal [facility] Comment on above: Performed By: #### C BC #### [facility] [address] [address] [address] Helga Salazar MCH (RBC) [Entitic mass] 28.1 pg Normal 26.7-34.0 [facility] Comment on above: Performed By: #### C BC #### [facility] [address] [address] [address] Helga Salazar MCHC (RBC) [Mass/Vol] 32.2 g/dL Normal 29.9-35.2 [facility] Comment on above: Performed By: #### C BC #### [facility] [address] [address] [address] Helga Salazar MCV (RBC) [Entitic vol] 87.5 fL Normal 81.0-99.0 [facility] Comment on above: Performed By: #### C BC #### [facility] [address] [address] [address] Helga Salazar MONO # 0.6 103/ul Normal 0.3-0.8 [facility] Comment on above: Performed By: #### C BC #### [facility] [address] [address] [address] Helga Salazar Monocytes/100 WBC (Bld) 6.2 % Normal 1.7-12.0 [facility] Comment on above: Performed By: #### C BC #### [facility] [address] [place] [address] Dr. Helga Salazar NEUT # 7.7 103/ul Critically high 1.4-6.5 [facility] Comment on above: Performed By: #### C BC #### [facility] [address] [place] [address] Dr. Helga Salazar Neutrophils/100 WBC (Bld) 83.3 % Critically high 43.0-75.0 [facility] Comment on above: Performed By: #### C BC #### [facility] [address] [place] [address] Dr. Helga Salazar Platelet mean volume (Bld) [Entitic vol] 8.2 fL Critically low 9.5-13.5 [facility] Comment on above: Performed By: #### C BC #### [facility] [address] [place] [address] Dr. Helga Salazar PLT 247 103/ul Normal 150-450 [facility] Comment on above: Performed By: #### C BC #### [facility] [address] [place] [address] Dr. Helga Salazar RBC 3.59 106/ul Critically low 4.20-5.40 [facility] Comment on above: Performed By: #### C BC #### [facility] [address] [place], [place] [address] Dr. Helga Salazar WBC 9.3 103/ul Normal 4.0-11.0 [facility] Comment on above: Performed By: #### C BC #### [facility] [address] [place], [place] [address] Dr. Helga Salazar GLUCOSE - 1HRon 02-20-2022 Glucose [Mass/Vol] 114 mg/dL Critically high 74-106 T [facility] [place] Comment on above: Performed By: #### A 1C #### [facility] [address] [place], [place] [address] Dr. Helga Salazar US PREG ANATOMY SINGLEon [...] by current US: 21 weeks 0 days SHNAELLE by current US: 05/07/2022 IMPRESSION: 1. Single live intrauterine with growth detailed above. Electronically authenticated by: PERLA SALEH Date: 2021-12-25 17:46 Normal [facility] HEP B SURFACE ANTIGEN SCREEN on 10-25-2021 HBsAg Screen Negative Normal Negative [facility] Comment on above: Performed By: #### A 1C #### [facility] [address] [place] [address] Dr. Helga Salazar HEPATITIS C VIRUS AB W/ REFL EX QUANTon 10-25-2021 HCV AB <0.1 Normal 0.0-0.9 [facility] Comment on above: Performed By: #### H CVPCRR #### [facility] [address] [place] [address] Dr. Helga Salazar Interpretation: Comment Normal [facility] Comment on above: Result Comment: Nega tive Not infected with HCV, unless recent infection is suspected or other evidence exists to indicate HCV infection. Performed By: #### H CVPCRR #### [facility] [address] [place] [address] Dr. Helga Salazar HIV 1 AND 2 WITH REFLEXon HIV Screen 4th Generation wRfx Non-Reactive Normal Non Reactive [facility] Comment on above: Result Comment: HIV Negative HIV-1/HIV-2 antibodies and HIV-1 p24 antigen were NOT detected. There is no laboratory evidence of HIV infection. Performed By: #### C BC #### [facility] [address] [place] [address] Dr. Helga Salazar RPR QUANTon 10-25-2021 Rapid Plasma Reagin, Quant Non-Reactive Normal NonRea<1:1 [facility] Comment on above: Result Comment: Plea se Note: This test does not meet current guidelines for screening and diagnosis of syphilis. This test is intended for following treatment response in patients being treated for syphilis infection. To screen for syphilis infection, a reflex cascade that includes both RPR and a treponema-specific assay should be utilized, such as Treponema pallidum (Syphilis) Screening [place] (774152) or Rapid Plasma Reagin (RPR) Test With Reflex to Quantitative RPR and Confirmatory Treponema pallidum Antibodies (020278). Performed By: #### C BC #### [facility] [address] [place] [address] Dr. Helga Salazar RUBELLA AB IGGon 10-25-2021 Rubella Antibodies, IgG 1.54 index Normal Immune >0.99 [facility] Comment on above: Result Comment: Non- immune <0.90 Equivocal 0.90 - 0.99 Immune >0.99 Performed By: #### A 1C #### [facility] [address] [place] [address] Dr. Helga Salazar CBC AUTO DIFFon 10-24-2021 BASO # 0.0 103/ul Normal 0.0-0.1 [facility] Comment on above: Performed By: #### C BC #### [facility] [address] [place] [address] Dr. Helga Salazar Basophils/100 WBC (Bld) 0.2 % Normal 0.2-2.0 [facility] Comment on above: Performed By: #### C BC #### [facility] [address] [place] [address] Dr. Helga Salazar EO # 0.0 103/ul Normal 0.0-0.7 [facility] Comment on above: Performed By: #### C BC #### [facility] [address] [place] [address] Dr. Helga Salazar Eosinophils/100 WBC (Bld) 0.5 % Critically low 0.9-7.0 [facility] Comment on above: Performed By: #### C BC #### [facility] [address] [place] [address] Dr. Helga Salazar Erythrocyte distribution width (RBC) [Ratio] 12.3 % Normal 11.0-15.0 [facility] Comment on above: Performed By: #### C BC #### [facility] [address] [place] [address] Dr. Helga Salazar Hematocrit (Bld) [Volume fraction] 35.2 % Critically low 36.0-48.0 [facility] Comment on above: Performed By: #### C BC #### [facility] [address] [place] [address] Dr. Helga Salazar Hemoglobin (Bld) [Mass/Vol] 12.0 g/dL Normal 12.0-16.0 [facility] Comment on above: Performed By: #### C BC #### [facility] [address] [place] [address] Dr. Helga Salazar IG # 0.03 10e3/ul Normal 0.00-0.03 [facility] Comment on above: Performed By: #### C BC #### [facility] [address] [place] [address] Dr. Helga Salazar IG % 0.4 % Normal 0.0-0.5 [facility] Comment on above: Performed By: #### C BC #### [facility] [address] [place] [address] Dr. Helga Salazar LYMPH # 1.4 103/ul Normal 1.2-3.8 [facility] Comment on above: Performed By: #### C BC #### [facility] [address] [place] [address] Dr. Helga Salazar Lymphocytes/100 WBC (Bld) 16.8 % Critically low 20.5-60.0 [facility] Comment on above: Performed By: #### C BC #### [facility] [address] [place] [address] Dr. Helga Salazar MANUAL DIFF REQ NO Normal [facility] Comment on above: Performed By: #### C BC #### [facility] [address] [place] [address] Dr. Helga Salazar MCH (RBC) [Entitic mass] 30.3 pg Normal 26.7-34.0 [facility] Comment on above: Performed By: #### C BC #### [facility] [address] [place] [address] Dr. Helga Salazar MCHC (RBC) [Mass/Vol] 34.1 g/dL Normal 29.9-35.2 [facility] Comment on above: Performed By: #### C BC #### [facility] [address] [place] [address] Dr. Helga Salazar MCV (RBC) [Entitic vol] 88.9 fL Normal 81.0-99.0 [facility] Comment on above: Performed By: #### C BC #### [facility] [address] [place] [address] [address] Helga Salazar MONO # 0.6 103/ul Normal 0.3-0.8 [facility] Comment on above: Performed By: #### C BC #### [facility] [address] [place] [address] [address] Helga Salazar Monocytes/100 WBC (Bld) 6.7 % Normal 1.7-12.0 [facility] Comment on above: Performed By: #### C BC #### [facility] [address] [place] [address] Dr. Helga Salazar NEUT # 6.2 103/ul Normal 1.4-6.5 [facility] Comment on above: Performed By: #### C BC #### [facility] [address] [place] [address] Dr. Helga Salazar Neutrophils/100 WBC (Bld) 75.4 % Critically high 43.0-75.0 [facility] Comment on above: Performed By: #### C BC #### [facility] [address] [place] [address] Dr. Helga Salazar Platelet mean volume (Bld) [Entitic vol] 8.9 fL Critically low 9.5-13.5 [facility] Comment on above: Performed By: #### C BC #### [facility] [address] [place] [address] Dr. Helga Salazar PLT 268 103/ul Normal 150-450 [facility] Comment on above: Performed By: #### C BC #### [facility] [address] [place] [address] Dr. Helga Salazar RBC 3.96 106/ul Critically low 4.20-5.40 [facility] Comment on above: Performed By: #### C BC #### [facility] [address] [place] [address] Dr. Helga Salazar WBC 8.2 103/ul Normal 4.0-11.0 [facility] Comment on above: Performed By: #### C BC #### [facility] [address] [place] [address] [address] Helga Salazar CULTURE URINEon 10-24-2021 CULTURE URINE Culture Observations: HEAVY GROWTH OF MIXED GENITAL ESEQUIEL. NO POTENTIAL PATHOGENS SEEN. Normal [facility] Comment on above: Performed By: #### U RCX #### [facility] [address] [place] [address] [address] Helga Salazar GLYCOHEMOGLOBIN A1Con 2021 ADA RECOMMENDATION SEE BELOW Normal [facility] Comment on above: Result Comment: ADA RECOMMENDED LIMIT 4.0 - 6.0 ADA THERAPEUTIC TARGET < 7.0 ACTION SUGGESTED > 7.0 Performed By: #### A 1C #### [facility] [address] [place] [address] [address] Helga Salazar Glucose [Mass/Vol] 85 mg/dL Normal [facility] Comment on above: Performed By: #### A 1C #### [facility] [address] [place] [address] [address] Helga Salazar HbA1c (Bld) [Mass fraction] 4.6 % Normal 4.5-6.2 [facility] Comment on above: Performed By: #### A 1C #### [facility] [address] [place] [address] [address] Helga Salazar TYPE AND SCREENon 10-24-2021 TYPE AND SCREEN Negative Normal [facility] Comment on above: Performed By: #### C BC #### [facility] [address] [place] [address] [address] Helga Salazar US PREG TVon 10-10-2021 [...] by: PERLA SALEH Date: 2021-10-10 16:54 Normal [facility] XR wrist BI 2Von 12-07-2020 XR wrist BI 2V [address] [address] XRay Report Signed Patient: Homa Bae MR#: [id number] : 1990 Acct:[id number] Age/Sex: 30 / F ADM Date: 12/07/20 Loc: [facility] Room: Type: [facility] Attending Dr: Lul Ocampo DO Ordering [...] Gideon Londono M.D.12/07/2020 12:59 PM Dictation Location: [place] [address] Transcribed By: [facility] 12/07/20 1259 Dictated By: Gideon Londono MD 12/07/20 1253 Signed By: 12/07/20 1259 Normal [facility] XR wrist BI 2V [facility] [employer] Other XR wrist BI 2V [facility] [employer] Other XR wrist BI 2V [address] [place] [address] [employer] Other XR wrist [place] 2[place] [address] No rt [employer] Other XR wrist BI 2V XRay Report [employer] Other XR wrist BI 2V Signed [employer] Other XR wrist BI 2V Patient: Homa Bae MR#: [id number] [employer] Other XR wrist BI 2V [address] [employer] Other XR wrist BI 2V : 1990 Acct:[id number] [employer] Other XR wrist BI 2V Age/Sex: 30 / F ADM Date: 12/07/20 [employer] Other XR wrist BI 2V Loc: [facility] Room: Type: [facility] [employer] Other XR wrist BI 2V Attending Dr: Lul Ocampo DO [employer] Other XR wrist BI 2V Ordering Provider: Lul Ocampo DO [employer] Other XR wrist BI 2V Date of Service: 12/07/20 [employer] Other XR wrist BI 2V XR/XR wrist BI 2V: Other closed extra-articular fracture of distal end of [employer] Other XR wrist BI 2V left [employer] Other XR wrist BI 2V Copies to: Lul Ocampo DO [employer] Other XR wrist BI 2V CLINICAL HISTORY: Follow-up internal fixation of distal radial fracture on the left and fracture of [employer] Other XR wrist BI 2V the distal right radius. Date of injury on 10/02/2020. [employer] Other XR wrist BI 2V XR wrist BI 2V [employer] Other XR wrist BI 2V COMPARISON: 11/09/2020 [employer] Other XR wrist BI 2V FINDINGS: AP and lateral views of the bilateral wrists were obtained. The patient is status post [employer] Other XR wrist BI 2V internal fixation of distal left radial fracture with placement of a volar plate and multiple [employer] Other XR wrist BI 2V screws. There is further obliteration of the radiolucent fracture line at the dorsal aspect of the [employer] Other XR wrist BI 2V radius since prior examination. There is stable bony alignment. [employer] Other XR wrist BI 2V The distal right radius shows a healing or healed hairline fracture with stable alignment. [employer] Other XR wrist BI 2V XR/XR wrist BI 2V [employer] Other XR wrist BI 2V IMPRESSION: [employer] Other XR wrist BI 2V INTERNAL FIXATION OF THE DISTAL LEFT RADIAL FRACTURE, STABLE ALIGNMENT. [employer] Other XR wrist BI 2V A HEALING OR HEALED DISTAL RIGHT RADIAL FRACTURE. [employer] Other XR wrist BI 2V Impression dictated by: Gideon Londono M.D.12/07/2020 12:59 PM [employer] Other XR wrist BI 2V Dictation Location: [place] [address] [employer] Other XR wrist BI 2V Transcribed By: JESSICA 12/07/20 1259 [employer] Other XR wrist BI 2V Dictated By: Gideon Londono MD 12/07/20 1253 [employer] Other XR wrist BI 2V Signed By: [employer] Other XR wrist BI 2V 12/07/20 1259 [employer] Other XR wrist BI 2Von 11-09-2020 XR wrist BI 2V [facility] [place] [address] [place] [address] XRay Report Signed Patient: Homa Bae MR#: [id number] : 1990 Acct:[id number] Age/Sex: 30 / F ADM Date: 11/09/20 Loc: [facility] Room: Type: [facility] CLI Attending Dr: Lul Ocampo DO Ordering [...] Cammie Jiang M.D.11/09/2020 1:31 PM Dictation Location: [place] [address] Transcribed By: [facility] 11/09/20 1331 Dictated By: Cammie Jiang MD 11/09/20 1328 Signed By: 11/09/20 1331 Normal [facility] HCG,Urineon 10-10-2020 Beta HCG ( test) Ql (U) Negative Normal [facility] Comment on above: Result Comment: PERF ORMED BY: [address] [place] [address] PATHOLOGIST TEST DRILLER MAX MANE M.D. Performed By: #### U HCG #### [address] XR wrist LT min 3V*on 2020 XR wrist LT min 3V* [facility] [address] [address] XRay Report Signed Patient: Homa Bae MR#: [id number] : 1990 Acct:[id number] Age/Sex: 30 / F ADM Date: 10/10/20 Loc: [place] Room: Type: [facility] [...] Dillan Fischer M.D.10/10/2020 1:45 PM Dictation Location: [place] [address] Transcribed By: [facility] 10/10/20 1345 Dictated By: Dillan Fischer DO 10/10/20 1338 Signed By: 10/10/20 1345 Normal [facility] XR wrist RT 2Von 10-10-2020 XR wrist RT 2V [address] [address] XRay Report Signed Patient: Homa Bae MR#: [id number] : 1990 Acct:[id number] Age/Sex: 30 / F ADM Date: 10/10/20 Loc: [place] Room: Type: [facility] [...] River Rice M.D.10/10/2020 2:17 PM Dictation Location: [place] [address] Transcribed By: JESSICA 10/10/20 141 Dictated By: Rivre Rice II, MD 10/10/20 141 Signed By: 10/10/20 141 Normal [facility] COVID-19 FRon 10-08-2020 SARS-CoV-2 (COVID-19) RNA SABRINA+probe Ql (Unsp spec) Negative Normal Negative [facility] Comment on above: Order Comment: Healt hcare Worker?: N Result Comment: Testing for SARS-CoV-2 by RT-PCR This test was developed and its performance characteristics determined by [employer] and validated at the [facility]. This test has not been FDA cleared [...] is terminated or revoked sooner. PERFORMED BY: [place] [address] PATHOLOGIST TEST DRILLER MAX MANE M.D. Performed By: #### C OVID 19 [facility] #### [place] [id number] [facility] XR elbow LT min 3V*on 2020 XR elbow LT min 3V* [place] [address] XRay Report Signed Patient: Homa Bae MR#: [id number] : 1990 Acct:[id number] Age/Sex: 30 / F ADM Date: 10/07/20 Loc: ER Room: Type: [facility] ER Attending Dr: Ordering Provider: Francisco Beverly [...] River Rice M.D.10/07/2020 5:18 PM Dictation Location: [place] [address] Transcribed By: [facility] 10/07/201717 Dictated By: River Rice II, MD 10/07/201714 Signed By: 10/07/201717 Normal [facility] XR wrist min BI 3Von 021 XR wrist min BI 3V [facility] [place] [id number] XRay Report Signed Patient: Homa Bae MR#: [id number] : 1990 Acct:[id number] Age/Sex: 30 / F ADM Date: 10/07/20 [...] River Rice M.D.10/07/2020 5:15 PM Dictation Location: [place] [address] Transcribed By: [facility] 10/07/201714 Dictated By: River Rice II, MD 10/07/201712 Signed By: 10/07/201714 [facility] Vital Signs Date Time Vital Sign Value Performing Clinician Izaiah chappell 04-29-2023 13:47-0500 Body mass index (BMI) [Ratio] 28.49 kg/m2 Yanick Van [employer] DEVELOPER-MANAGER STORY Work Phone: [facility] 04-29-2023 13:47-0500 Body weight 75.3 kg Yanick Bolivar [employer] DEVELOPER-MANAGER [employer]ORY Work Phone: [facility] 04-29-2023 13:47-0500 Diastolic blood pressure 72 mm[Hg] Yanick Van [employer] DEVELOPER-MANAGER STORY Work Phone: [facility] 04-29-2023 13:47-0500 Heart rate 85 /min Yanick Swathi-Nossek [employer] DEVELOPER-MANAGER [employer]ORY Work Phone: [facility] 04-29-2023 13:47-0500 Systolic blood pressure 110 mm[Hg] Yanick Swathi-Nossek [employer] DEVELOPER-MANAGER STORY Work Phone: [facility] Healthcare Encounters Encounter Date Encounter Type [...] Start: 04-29-2023 Bamboo flowsheet Yanick M Swathi-Nossek [employer] DEVELOPER-MANAGER STORY Work Phone: [facility] Start: 04-29-2023 Bamboo flowsheet Yanick M Swathi-Nossek [employer] DEVELOPER-MANAGER STORY Work Phone: [facility] Start: 04-29-2023 End: 04-29-2023 Office outpatient visit 25 minutes Yanick M Swathi-Nossek [employer] DEVELOPER-MANAGER STORY Work Phone: [facility] Comment on above: Anxiety; Attention deficit hyperactivity [...] patient 05/22/2023 8:30 AM EST Telemedicine [facility] [address] [place] [address] Yanick Bolivar, [employer] DEVELOPER-MANAGER STORY [address] [place] [address] [facility] Start: 05-07-2023 End: 05-07-2023 Social Work 05/07/2023 1:00 PM EST Social Work [facility] [address] [place] [id number] Estefani Key, [facility] [address] [place] [address] [facility] Start: 04-29-2023 End: 04-29-2023 Patient encounter procedure 04/29/2023 2:00 PM EST Office Visit [facility] [address] [facility] [address] [place] [address] Yanick Bolivar, [employer] NET DEVELOPER-[facility] [address] [facility] [address] [place] [address] Arrived [facility] Comment on above: Arrived Start: 11-14-2022 Influenza vaccination Influenza Vacc ine (#1) [facility] Start: 2020 Screening for malign ant neoplasm of cervix [facility] Start: 07-15-2011 Screening for malign ant neoplasm of cervix Pap Smear [facility] Healthcare Payers Date Payer Category Payer Private Health Insurance [facility] [id number] 2022-Present [address] [address] [place] [address] [id number] 2022 Private Health Insurance [id number] 1990 Unknown [id number] 2.16.840.1.195948.3.579. 2.593 1990 Unknown [id number] 2.16.840.1.007337.3.579. 2.593 1990 Unknown [id number] 2.16.840.1.555451.3.579. 2.593 1990 Unknown [id number] 2.16.840.1.311831.3.579. 2.593 1990 Unknown [id number] 2.16.840.1.626628.3.579. 2.593 1990 Unknown [id number] 2.16.840.1.925416.3.579. 2.593 1990 Unknown [id number] 2.16.840.1.560121.3.579. 2.593 1990 Unknown [id number] 2.16.840.1.715441.3.579. 2.593 1990 Unknown [id number] 2.16.840.1.242816.3.579. 2.59 1990 Unknown [id number] 2.16.840.1.233095.3.579. 2.59 1990 Unknown [id number] 2.16.840.1.792747.3.579. 2.59 1990 Unknown [id number] 2.16.840.1.105619.3.579. 2.593 1990 Unknown [id number] 2.16.840.1.282447.3.579. 2.1258 1990 Unknown [id number] 2.16.840.1.786102.3.579. 2.1258 1990 Unknown [id number] 2.16.840.1.473540.3.579. 2.125 1990 Unknown [id number] 2.16.840.1.572583.3.579. 2.1258 1990 Unknown [id number] 2.16.840.1.568675.3.579. 2.1258 1990 Unknown [id number] 2.16.840.1.036286.3.579. 2.1259 1990 Unknown [id number] 2.16.840.1.895033.3.579. 2.9 1990 Unknown [id number] 2.16.840.1.078743.3.579. 2.9 1990 Unknown [id number] 2.16.840.1.604582.3.579. 2.9 1959 Private Health Insurance [id number] Private Health Insurance [id number] 2.16.840.1.119445.19 Social History Date Type Detail Facility Start: 03-17-2023 End: 04-29-2023 Sex Assigned At [place] [facility] Other Start: 03-17-2023 Tobacco smoking status KYIS Never smoked tobacco [facility] Start: 03-17-2023 [...] of Present illness Narrative 04-29-2023 Yanick Bolivar, [employer] DEVELOPER-MANAGER STORY - 04/29/2023 2:00 PM Abhishek Melgar, CHART COMPUTER - 04/29/2023 2:00 PM EST Note Date [...] Medical problems since last visit. Working at [employer] and its better working there. Stressors [...] per day of coffee. Education: Masters program online-[employer]. Children: 4year old father sees child qother weekend. Legal problems: none age 17 -curfew violation-Probation violation -in group home -5 days. Living with: Boyfriend. 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 Pets: dog-Albino. no Sexually active. no Verbal [...] with a meds. documented in this encounter [facility] Healthcare Evaluation note 12-07-2020 Note Date [...] Other specified postprocedural states (ICD-10 - Z98.890) [employer] Other Evaluation note Note Date & Type Note Facility Evaluation note Diagnosis Anxiety Anxiety state, unspecified Attention deficit hyperactivity disorder (ADHD), predominantly inattentive type (CMS/HCC) documented in this encounter [facility] History general Narrative - Reported Note Date & Type Note Facility History general Narrative - Reported Type Surgical History tonsillectomy Surgical History leap Surgical History bbLatinda Other Summary Purpose Family History No Family History Records FoundNo Family History Records FoundNo Family History Records Found Advance Directives No Advanced Directives Records FoundNo Advanced Directives Records FoundNo Advanced Directives Records Found Additional Source Comments INFORMATION SOURCE (unrecogn ized section and content) DATE CREATED AUTHOR 04/07/2021 [facility] DATE CREATED AUTHOR AUTHOR'S ORGANIZ ATION 05/28/2022 [facility] DATE CREATED AUTHOR AUTHOR'S ORGANIZ ATION 12/11/2023 [facility] EPIC REASON FOR VISIT (unrecogniz ed section and content) Reason Comments Med Management Follow-up Care Teams (unrecognized sec tion and content) Technical Sales Associate Relationship Specialty Start Date End Date Daniel Comer DO [address] [place] [address] PCP - General Family Medicine 07/22/22 Technical Sales Associate Relationship Specialty Start Date End Date Daniel Comer DO [address] [place] [address] PCP - General Family Medicine 07/22/22 FOR [...] BE BASED ON THE PRIMARY CLINICAL RECORDS. [facility]. provides no warranty or guarantee of the accuracy or completeness of information in this document.
--- NOTE | 2024-01-04 11:01 | US_ITS ---
[address] [address] Patient Name: LILIANA GO MRN: [id number] date: 1990 Sex: F Assigned Patient Location: [facility] Current Patient Location: [facility] Accession/Order Number: [id number] Exam Date: 01/04/2024 11:01 Report Date: 01/04/2024 12:41 At the request of: IVANIA RENEE Procedure: US OB incomplete anatomy EXAM: US OB incomplete anatomy HISTORY: INCOMPLETE ANATOMY COMPARISON: 12/04/2023 TECHNIQUE: Transabdominal images FINDINGS: Dotson intrauterine gestation position: Cephalic presentation, longitudinal lie Heart rate: 144 beats minute Normal anatomy: Lateral ventricles, choroid plexus Clinical age: 26 weeks 3 days Clinical SHANELLE: 04/08/2024 US/US OB incomplete anatomy IMPRESSION: Normal lateral ventricles Electronically authenticated by: MICHEAL ZAPATA Date: 01/04/2024 12:41
== END 2024-01-04 10:58 | disposition home or self-care (01) ==
LOC: NOMS 10:58
PROVIDERS: PCP Family Medicine; Visit Provider Obstetrics & Gynecology
DX: Z36.2 Encounter for other antenatal screening follow-up (principal); Z3A.26 26 weeks gestation of pregnancy
CPT/HCPCS: 76815

== ENCOUNTER 2024-01-19 12:18 | Outpatient (OUT) | payer OTHER, SELFPAY ==
[2024-01-19 13:41] LABS: Basophils Percent Auto 0.2 % (0.2-2.0); Eosinophils Percent Auto 0.3 % (0.9-7.0); Hemoglobin 11.3 g/dL (12.0-16.0); Immature Granulocytes Abs Auto 0.04 10^3/uL (0.00-0.03); Immature Granulocytes Pct Auto 0.4 % (0.0-0.5); Lymphocytes Absolute Auto 1.6 10^3/uL (1.2-3.8); Mean Corpuscular HGB Conc 33.2 g/dL (29.9-35.2); Mean Corpuscular Hemoglobin 30.1 pg (26.7-34.0); Mean Corpuscular Volume 90.7 fL (81.0-99.0); Mean Platelet Volume 8.6 fL (9.5-13.5); Monocytes Absolute Auto 0.8 10^3/uL (0.3-0.8); Monocytes Percent Auto 6.9 % (1.7-12.0); Neutrophils Absolute Auto 8.7 10^3/uL (1.4-6.5); Neutrophils Percent Auto 78.2 % (43.0-75.0); Platelet Count 256 10^3/uL (150-450); Red Blood Count 3.75 10^6/uL (4.20-5.40); Red Cell Distribution Width 12.5 % (11.0-15.0); White Blood Count 11.2 10^3/uL (4.0-11.0)
[2024-01-19 15:18] LABS: Glucose 1 Hour 126 mg/dL (<130)
== END 2024-01-19 12:19 | disposition home or self-care (01) ==
LOC: LAB 12:20
PROVIDERS: PCP Family Medicine; Visit Provider Obstetrics & Gynecology
DX: Z13.1 Encounter for screening for diabetes mellitus (principal)
CPT/HCPCS: 36415; 82950; 85025

== ENCOUNTER 2024-03-07 12:57 | Outpatient (OUT) | payer OTHER, SELFPAY ==
--- NOTE | 2024-03-07 13:02 | US_ITS ---
[address] [address] Patient Name: LILIANA GO MRN: [id number] date: 1990 Sex: F Assigned Patient Location: [facility] Current Patient Location: [facility] Accession/Order Number: [id number] Exam Date: 03/07/2024 13:04 Report Date: 03/07/2024 13:53 At the request of: IVANIA RENEE Procedure: US OB growth EXAMINATION: US OB growth HISTORY: LARGE FOR GESTATIONAL AGE COMPARISON: 12/04/2023 FINDINGS: Heart Rate: 170 bpm Amniotic Fluid Volume: 18.1 cm, largest fluid pocket 5.6 cm Number: 1 Position: Cephalic presentation, longitudinal lie BIOMETRY: BPD: 9.01 cm; 36 weeks 3 days; 82.20 % HC: 32.21 cm; 36 weeks 3 days; 40.20 % AC: 32.27 cm; 36 weeks 1 day; 78.50 % FL: 6.96 cm; 35 weeks 5 days; 51.30 % EFW: 2894.33 g; 68.60 %, 6 lbs. 5 oz. FL/AC: 21.57 FL/BPD: 77.25 HC/AC: 1 GESTATIONAL AGE: Age by EDC: 35 weeks 3 days SHANELLE by EDC: 2024-04-08 Age by US: 36 weeks 1 day SHANELLE by US: 2024-04-03 US/US OB growth IMPRESSION: Normal interval growth Electronically authenticated by: MICHEAL ZAPATA Date: 03/07/2024 13:53
== END 2024-03-07 12:58 | disposition home or self-care (01) ==
LOC: NOMS 12:57
PROVIDERS: PCP Family Medicine; Visit Provider Obstetrics & Gynecology
DX: O36.63X0 Maternal care for excessive fetal growth, third trimester, not applicable or unspecified (principal); Z3A.35 35 weeks gestation of pregnancy
CPT/HCPCS: 76816

== ENCOUNTER 2024-03-10 17:00 | Outpatient (REF) | payer OTHER, SELFPAY ==
--- OUTSIDE RECORDS SUMMARY | 2024-03-10 17:04 | XMS_ITS | CCD ---
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 Name Role Phone Lul Ocampo Unavailable KARNIIK [...] Unavailable LONA JOVEL Admitting Unavailable REQUEST, DR MARCIO LISTED Primary Care Unavaila ble KARASIK ., DR WIGGINS Consulting Unavailabl e MED, LONA Attending Unavailable WEST, DR MICHEAL Samuels Consulting [...] e MISC, DR MOSER Primary Care Unavailable Med Comer DO Primary Care Provider SWATHI-NOSSEK YANICK M Attending Unavailab le SWATHI-NOSSEK, YANICK M Attending Unavailab ESTEFANI Fine Attending Unavailable SWATHI-NOSSEK, YANICK M Referring Unavailab le SWATHI-NOSSEK, YANICK M Attending Unavailab le SWATHI-NOSSEK, YANICK M Attending Unavailab le SWATHI-NOSSEK, YANICK M Attending Unavailab le AMANDAIVANIA Attending Unavailable COLTONKEYONNA Attending Unavailable AMANDAIVANIA Attending Unavailable COLTON KEYONNA Attending Unavailable COLTON KEYONNA Attending Unavailable AMANDAIVANIA Attending Unavailable Allergies Allergy Classification Reported Allergen(s) Allergy Type Date of Onset Reaction(s) Facility (1 source) banana allergenic extract Drug Allergy hives [facility] Other (20 sources) Cat dander Drug allergy 03-17-2023 Unknown [facility] Other (1 source) Banana Extract Drug Allergy 03-16-2004 [facility] (1 source) Latex Drug allergy (disorder) 03-16-2009 [facility] (1 source) kiwi Drug allergy (disorder) 03-16-2004 [facility] (20 sources) Banana Extract Drug Allergy 08-04-[address] [facility] (20 sources) Octacosanol Drug Allergy 08-04-[address] [facility] (20 sources) Serdexmethylphen -Dexmethylphen Drug Allergy 05-22-[address] [facility] Healthcare Work Phone: Medications Current Medications Medication Drug Class(es) Dates [...] mouth in the morning. 0 07/01/2022 Active MV-Min-Fe Fum-FA-DHA ( 1 PO) (20 sources) MV-Min- Fe Fum-FA-DHA ( 1 PO) Take 1 each by mouth Daily Active serdexmethylphen-de xmethylphenidate (Azstarys) 39.2-7.8 MG capsule [...] 1 tablet Orally Once a day Active Completed/Discontinued Medications Medication Drug Class(es) Dates Sig (Normalized) Sig (Original) magnesium oxide 400 mg oral tablet (2 sources) Start: 10-09-2023 End: 11-09-2023 take 1 tablet by mouth once daily magnesium oxide (Mag-Ox) 400 MG tablet Indications: Nonintractable headache, unspecified chronicity pattern, unspecified headache type Take 1 tablet (400 mg) by mouth Daily 30 tablet 6 10/09/2023 11/09/2023 Problems Active Problems Problem Classification Problem Date Documented Date Episodic/Chronic Anxiety disorders (2 sources) Anxiety; Translations: [Anxiety disorder, unspecified] 04-29-2023 Chronic Attention-deficit, conduct, and disruptive behavior disorders (2 sources) Attention deficit hyperactivity disorder, predominantly inattentive type; Translations: [Attention-deficit hyperactivity disorder, predominantly inattentive type] 04-29-2023 Chronic Menstrual disorders (4 sources) Irregular menstruation, unspecified; [...] COND 3RD TRI] Onset: 05-12-2022 Episodic Other complications of (2 sources) Excessive growth affecting management of mother; Translations: [Maternal care for excessive growth, unspecified trimester, not applicable or unspecified] 02-24-2024 Episodic Other nervous system disorders (1 source) Carpal tunnel syndrome of left wrist; Translations: [Carpal tunnel syndrome, left upper limb] Chronic Other nervous system disorders (1 source) Carpal tunnel syndrome, left upper limb; Translations: [Left carpal tunnel syndrome G56.02] Onset: 12-07-2020 Resolved: 12-07-2020 Chronic Other and delivery including normal (20 sources) Single live ; Translations: [Encounter for supervision of normal , unspecified, third trimester] Onset: 10-16-2021 Episodic Other screening for suspected conditions (not mental disorders or infectious disease) (13 sources) Encounter for screening for malignant neoplasm [...] WEEKS GESTATION OF ] Onset: 05-19-2022 Episodic Residual codes; unclassified (2 sources) Gestation period, 26 weeks; Translations: [26 weeks gestation of ] 01-06-2024 Episodic Residual codes; unclassified (2 sources) Gestation period, 28 weeks; Translations: [28 weeks gestation of ] 01-20-2024 Episodic Residual codes; unclassified (2 sources) Gestation period, 30 weeks; Translations: [30 weeks gestation of ] 02-03-2024 Episodic Residual codes; unclassified (2 sources) Gestation period, 33 weeks; Translations: [33 weeks gestation of ] 02-24-2024 Episodic Residual codes; unclassified (4 sources) Gestation period, 35 weeks; Translations: [35 weeks gestation of ] Onset: 03-10-2024 03-10-2024 Episodic Screening and history of mental health [...] right radius with routine healing, subsequent encounter [id number]] Onset: 12-07-2020 Resolved: 12-07-2020 Episodic Immunizations and screening for infectious disease (5 sources) Encounter for screening for human papillomavirus (HPV); Translations: [Encounter for screening for infections with a predominantly sexual mode of transmission] Onset: 10-25-2021 11-09-2023 Episodic Other female genital disorders (2 sources) Vaginal discharge; Translations: [Other specified noninflammatory disorders of vagina] 11-09-2023 Episodic Residual codes; unclassified (1 source) Other specified postprocedural states; Translations: [Other specified postprocedural states Z98.890] Onset: 12-07-2020 Resolved: 12-07-2020 Episodic Residual codes; unclassified (2 sources) Gestation period, 18 weeks; Translations: [18 weeks gestation of ] 11-09-2023 Episodic Results Test Name Value Interpretation Reference Range Facility Urinalysis macro (dipstick) panel (U)on 03-10-2024 Bilirubin, UA Negative Negative - 4(70) +++ mg/dL [facility] Blood, UA Negative Negative - 50 Zay/mcL [facility] Clarity, UA Clear [facility] re Color, UA Yellow [facility] Glucose, UA Negative Negative - 1999(110) ++++ mg/dL [facility] Interpretation and review of laboratory results Abnormal [facility] Ketones, UA Negative Negative - 160(16) ++++ mg/dL [facility] Leukocytes, UA Negative Negative - 500+++ Maria Dolores/mcL [facility] Nitrite, UA Negative Negative - Positive [facility] pH, UA 0.2 5 - 9 [facility] Protein, UA 1+ Negative - 1999(20) ++++ mg/dL [facility] Comment on above: 100mg Spec Grav, UA 1.02 1 - 1.03 [facility] Urobilinogen, UA 0.2 0.2 - 12 mg/dL [facility] Urinalysis macro (dipstick) panel (U)on 02-24-2024 Bilirubin, UA Negative Negative - 4(70) +++ mg/dL [facility] Blood, UA Negative Negative - 50 Zay/mcL [facility] Healthcare Clarity, UA Clear [facility] re Color, UA Yellow [facility] Glucose, UA Negative Negative - 1999(110) ++++ mg/dL [facility] Interpretation and review of laboratory results Normal [facility] Ketones, UA Negative Negative - 160(16) ++++ mg/dL [facility] Leukocytes, UA Negative Negative - 500+++ Maria Dolores/mcL [facility] Nitrite, UA Negative Negative - Positive [facility] pH, UA 7 5 - 9 [facility] Protein, UA Negative Negative - 1999(20) ++++ mg/dL [facility] Healthcare Spec Grav, UA 1.02 1 - 1.03 [facility] care Urobilinogen, UA 0.2 0.2 - 12 [facility] Urinalysis macro (dipstick) panel (U)on 02-03-2024 Bilirubin, UA Negative Negative - 4(70) +++ mg/dL [facility] Blood, UA Negative Negative - 50 Zay/mcL [facility] Clarity, UA Clear [facility] re Color, UA Yellow [facility] Glucose, UA Negative Negative - 1999(110) ++++ mg/dL [facility] Interpretation and review of laboratory results Normal [facility] Ketones, UA Negative Negative - 160(16) ++++ mg/dL [facility] Leukocytes, UA Negative Negative - 500+++ Maria Dolores/mcL [facility] Nitrite, UA Negative Negative - Positive [facility] pH, UA 5.5 5 - 9 [facility] Protein, UA Negative Negative - 1999(20) ++++ mg/dL [facility] Spec Grav, UA 1.02 1 - 1.03 [facility] Urobilinogen, UA 1.0 0.2 - 12 mg/dL [facility] Urinalysis macro (dipstick) panel (U)on 01-20-2024 Bilirubin, UA Negative Negative - 4(70) +++ mg/dL [facility] Blood, UA Positive Negative - 50 Zay/mcL [facility] Healthcare Comment on above: trace-intact Clarity, UA Clear [facility] Color, UA Yellow [facility] Glucose, UA Negative Negative - 1999(110) ++++ mg/dL [facility] Interpretation and review of laboratory results Normal [facility] Ketones, UA Negative Negative - 160(16) ++++ mg/dL [facility] Leukocytes, UA Negative Negative - 500+++ Maria Dolores/mcL [facility] Nitrite, UA Negative Negative - Positive [facility] pH, UA 7 5 - 9 [facility] Protein, UA Negative Negative - 1999(20) ++++ mg/dL [facility] Spec Grav, UA 1.02 1 - 1.03 [facility] Urobilinogen, UA 0.2 0.2 - 12 mg/dL [facility] ALL CBC WITH AUTO DIFFon BASOPHILS ABSOLUTE AUTO 0 [facility] Basophils/100 WBC (Bld) 0.2 % 0.2 - 2.0 % [facility] Eosinophils/100 WBC (Bld) 0.3 % Low 0.9 - 7.0 % [facility] Erythrocyte distribution width (RBC) [Ratio] 12.5 % 11.0 - 15.0 % [facility] Hematocrit (Bld) [Volume fraction] 34 % Low 36.0 - 48.0 % [facility] Hemoglobin (Bld) [Mass/Vol] 11.3 g/dL Low 12.0 - 16.0 g/dL [facility] IMMATURE GRANULOCYTES ABS AUTO 0.[address] [facility] Immature granulocytes/100 WBC (Bld) 0.4 % 0.0 - 0.5 % [facility] Interpretation and review of laboratory results Abnormal [facility] LYMPHOCYTES ABSOLUTE AUTO 1.6 [facility] Lymphocytes/100 WBC (Bld) 14 % Low 20.5 - 60.0 % [facility] MCH (RBC) [Entitic mass] 30.1 pg 26.7 - 34.[address] [facility] MCHC (RBC) [Mass/Vol] 33.2 g/dL 29.9 - 35.2 g/dL [facility] MCV (RBC) [Entitic vol] 90.7 fL 81.0 - 99.[address] [facility] MONOCYTES ABSOLUTE AUTO 0.8 [facility] Monocytes/100 WBC (Bld) 6.9 % 1.7 - 12.0 % [facility] NEUTROPHILS ABSOLUTE AUTO 8.[address] [facility] Neutrophils/100 WBC (Bld) 78.2 % High 43.0 - 75.0 % [facility] Platelet mean volume (Bld) [Entitic vol] 8.6 fL Low 9.5 - 13.5 fL [facility] EO # 0 [facility] PLT 256 [facility] e TB RBC 3.75 Low [facility] e TB WBC 11.[address] [facility] e [facility] Urinalysis macro (dipstick) panel (U)on 01-06-2024 Bilirubin, UA Negative Negative - 4(70) +++ mg/dL [facility] Blood, UA Negative Negative - 50 Zay/mcL [facility] Clarity, UA Clear [facility] re Color, UA Yellow [facility] e Glucose, UA Negative Negative - 1999(110) ++++ mg/dL [facility] Interpretation and review of laboratory results Normal [facility] Ketones, UA Negative Negative - 160(16) ++++ mg/dL [facility] Leukocytes, UA Negative Negative - 500+++ Maria Dolores/mcL [facility] Nitrite, UA Negative Negative - Positive [facility] pH, UA 7.5 5 - 9 [facility] Protein, UA Negative Negative - 1999(20) ++++ mg/dL [facility] Spec Grav, UA 1.02 1 - 1.03 [facility] Urobilinogen, UA 0.2 0.2 - 12 mg/dL [facility] e ALL CBC WITH AUTO DIFFon BASOPHILS ABSOLUTE AUTO 0.0 [facility] Basophils/100 WBC (Bld) 0.2 % 0.2 - 2.0 % [facility] Eosinophils/100 WBC (Bld) 0.7 % Low 0.9 - 7.0 % [facility] Erythrocyte distribution width (RBC) [Ratio] 12.5 % 11.0 - 15.0 % [facility] Hematocrit (Bld) [Volume fraction] 34.3 % Low 36.0 - 48.0 % [facility] e Hemoglobin (Bld) [Mass/Vol] 11.4 g/dL Low 12.0 - 16.0 g/dL [facility] IMMATURE GRANULOCYTES ABS AUTO 0.[address] [facility] Immature granulocytes/100 WBC (Bld) 0.5 % 0.0 - 0.5 % [facility] Interpretation and review of laboratory results Abnormal [facility] LYMPHOCYTES ABSOLUTE AUTO 1.3 [facility] Lymphocytes/100 WBC (Bld) 14.7 % Low 20.5 - 60.0 % [facility] MCH (RBC) [Entitic mass] 30.2 pg 26.7 - 34.[address] [facility] MCHC (RBC) [Mass/Vol] 33.2 g/dL 29.9 - 35.2 g/dL [facility] MCV (RBC) [Entitic vol] 91.0 fL 81.0 - 99.[address] [facility] MONOCYTES ABSOLUTE AUTO 0.5 [facility] Monocytes/100 WBC (Bld) 5.9 % 1.7 - 12.0 % [facility] NEUTROPHILS ABSOLUTE AUTO 6.[address] [facility] Neutrophils/100 WBC (Bld) 78.0 % High 43.0 - 75.0 % [facility] Platelet mean volume (Bld) [Entitic vol] 8.8 fL Low 9.5 - 13.5 fL [facility] EO # 0.1 [facility] e TB PLT 286 [facility] e TB RBC 3.[address] [facility] Urinalysis macro (dipstick) panel (U)on 12-09-2023 Bilirubin, UA Negative Negative - 4(70) +++ mg/dL [facility] Blood, UA Negative Negative - 50 Zay/mcL [facility] Clarity, UA Clear [facility] re Color, UA Yellow [facility] Glucose, UA Negative Negative - 1999(110) ++++ mg/dL [facility] Interpretation and review of laboratory results Normal [facility] Ketones, UA Negative Negative - 160(16) ++++ mg/dL [facility] Leukocytes, UA Negative Negative - 500+++ Maria Dolores/mcL [facility] Nitrite, UA Negative Negative - Positive [facility] pH, UA 7.0 5 - 9 [facility] e Protein, UA Negative Negative - 1999(20) ++++ mg/dL [facility] Spec Grav, UA 1.015 1 - 1.03 [facility] Urobilinogen, UA 0.2 0.2 - 12 mg/dL [facility] IGP,APTIMA HPV,AGE GDLNon AGE GDLN ACOG TESTING Note . [facility] Comment on above: TESTS RESULT FLAG UN ITS REF RANGE LAB Clinician Provided Cytology Information Source.............Cervix Other.............. No. of containers..01 ThinPrep Vial Age Algo ACOG Tita... FLAG LEGEND: L-Low Normal,H-High Normal,LL-Alert Low,HH-Alert High <-Panic Low,>-Panic High,A-Abnormal,AA-Critical Abnormal Performed at: 01 =G [facility] [place] [address] Milla Nesbitt MD, HPV APTIMA Negative Negative [facility] Comment on above: This nucleic acid am plification test detects fourteen high- risk HPV types (16,18,31,33,35,39,45,51,52,56,58,59,66,68) without differentiation. Performed at: = - [address] [id number] Scaffolding Helper: Milla Nesbitt MD, Phone: [phone] Performed at: - [address] [id number] Scaffolding Helper: Milla Nesbitt MD, Phone: [phone] IGP, APTIMA HPV, RFX 16/18,[address] [facility] Comment on above: TESTS RESULT FLAG UN ITS REF RANGE LAB DIAGNOSIS: 02 NEGATIVE FOR INTRAEPITHELIAL LESION OR MALIGNANCY. Specimen adequacy: 02 Satisfactory for evaluation. Endocervical and/or squamous metaplastic cells (endocervical component) are present. Performed by: 02 [facility] . 02 Note: Note 02 The Pap smear is a screening test designed to aid in the detection of premalignant and malignant conditions of the uterine cervix. It is not a diagnostic procedure and should not be used as the sole means of detecting cervical cancer. Both false-positive and false-negative reports do occur. Test Methodology: Note 02 This liquid based ThinPrep(R) pap test was screened with the use of an image guided system. HPV Genotype Reflex Note 02 Criteria not met, HPV Genotype not performed. FLAG LEGEND: L-Low Normal,H-High Normal,LL-Alert Low,HH-Alert High <-Panic Low,>-Panic High,A-Abnormal,AA-Critical Abnormal Performed at: 02 [facility] [address] [place] [address] Milla Nesbitt MD, SPATULA-ALONE CERVIX [facility] URETHRITIS/DISCHARGE PLUS VA GINITIS (HTRX)on 11-11-2023 ATOPOBIUM VAGINAE 0.000 [facility] ATOPOBIUM VAGINAE Not detected [facility] BVAB 2,3 (BACTERIAL VAGINOSIS ASSOCIATED BACTERIA 2, 3); MOBILUNCUS SPP 0.000 [facility] BVAB 2,3 (BACTERIAL VAGINOSIS ASSOCIATED BACTERIA 2, 3); MOBILUNCUS SPP Not detected [facility] PANCHO ALBICANS, PARAPSILOSIS, TROPICALIS 0.000 [facility] PANCHO ALBICANS, PARAPSILOSIS, TROPICALIS Not detected [facility] PANCHO GLABRATA 0.000 [facility] PANCHO GLABRATA Not detected [facility] PANCHO KRUSEI 0.000 [facility] PANCHO KRUSEI Not detected [facility] CHLAMYDIA TRACHOMATIS 0.000 [facility] CHLAMYDIA TRACHOMATIS Not detected [facility] GARDNERELLA VAGINALIS 0.000 [facility] GARDNERELLA VAGINALIS Not detected [facility] MEGASPHAERA (TYPES 1, 2) 0.000 [facility] MEGASPHAERA (TYPES 1, 2) Not detected [facility] MYCOPLASMA GENITALIUM 0.000 [facility] MYCOPLASMA GENITALIUM Not detected [facility] NEISSERIA GONORRHOEAE 0.000 [facility] NEISSERIA GONORRHOEAE Not detected [facility] TRICHOMONAS VAGINALIS 0.000 [facility] TRICHOMONAS VAGINALIS Not detected [facility] Urinalysis macro (dipstick) panel (U)on 11-09-2023 Bilirubin, UA Negative Negative - 4(70) +++ mg/dL [facility] Blood, UA Negative Negative - 50 Zay/mcL [facility] Clarity, UA Clear [facility] re Color, UA Yellow [facility] e Glucose, UA Negative Negative - 1999(110) ++++ mg/dL [facility] Interpretation and review of laboratory results Normal [facility] Ketones, UA Negative Negative - 160(16) ++++ mg/dL [facility] Leukocytes, UA Negative Negative - 500+++ Maria Dolores/mcL [facility] Nitrite, UA Negative Negative - Positive [facility] pH, UA 7.5 5 - 9 [facility] Protein, UA Negative Negative - 1999(20) ++++ mg/dL [facility] Spec Grav, UA 1.020 1 - 1.03 [facility] Urobilinogen, UA 0.2 0.2 - 12 mg/dL [facility] CBC AUTO DIFFon 05-20-2022 BASO # 0.0 103/ul Normal 0.0-0.1 [facility] Comment on above: Performed By: #### C BC #### [facility] [address] [address] [address] Helga Salazar Basophils/100 WBC (Bld) 0.2 % Normal 0.2-2.0 [facility] Comment on above: Performed By: #### C BC #### [facility] [address] [place] [address] Dr. Helga Salazar EO # 0.0 103/ul Normal 0.0-0.7 [facility] Comment on above: Performed By: #### C BC #### [facility] [address] [place] [address] Dr. Helga Salazar Eosinophils/100 WBC (Bld) 0.1 % Critically low 0.9-7.0 [facility] Comment on above: Performed By: #### C BC #### [facility] [address] [place] [address] Dr. Helga Salazar Erythrocyte distribution width (RBC) [Ratio] 16.0 % Critically high 11.0-15.0 [facility] Comment on above: Performed By: #### C BC #### [facility] [address] [place] [address] Dr. Helga Salazar Hematocrit (Bld) [Volume fraction] 30.1 % Critically low 36.0-48.0 [facility] Comment on above: Performed By: #### C BC #### [facility] [address] [place] [address] Dr. Helga Salazar Hemoglobin (Bld) [Mass/Vol] 10.0 g/dL Critically low 12.0-16.0 [facility] Comment on above: Performed By: #### C BC #### [facility] [address] [place] [address] Dr. Helga Salazar IG # 0.06 10e3/ul Critically high 0.00-0.03 [facility] Comment on above: Performed By: #### C BC #### [facility] [address] [place] [address] Dr. Helga Salazar IG % 0.5 % Normal 0.0-0.5 [facility] Comment on above: Performed By: #### C BC #### [facility] [address] [address] [address] Helga Salazar LYMPH # 1.2 103/ul Normal 1.2-3.8 [facility] Comment on above: Performed By: #### C BC #### [facility] [address] [address] [address] Helga Salazar Lymphocytes/100 WBC (Bld) 10.5 % Critically low 20.5-60.0 [facility] Comment on above: Performed By: #### C BC #### [facility] [address] [place] [address] Dr. Helga Salazar MANUAL DIFF REQ NO Normal [facility] Comment on above: Performed By: #### C BC #### [facility] [address] [place] [address] Dr. Helga Salazar MCH (RBC) [Entitic mass] 27.9 pg Normal 26.7-34.0 [facility] Comment on above: Performed By: #### C BC #### [facility] [address] [place] [address] Dr. Helga Salazar MCHC (RBC) [Mass/Vol] 33.2 g/dL Normal 29.9-35.2 [facility] Comment on above: Performed By: #### C BC #### [facility] [address] [place] [address] Dr. Helga Salazar MCV (RBC) [Entitic vol] 84.1 fL Normal 81.0-99.0 [facility] Comment on above: Performed By: #### C BC #### [facility] [address] [place] [address] Dr. Helga Salazar MONO # 0.9 103/ul Critically high 0.3-0.8 [facility] Comment on above: Performed By: #### C BC #### [facility] [address] [place] [address] Dr. Helga Salazar Monocytes/100 WBC (Bld) 8.1 % Normal 1.7-12.0 [facility] Comment on above: Performed By: #### C BC #### [facility] [address] [address] [address] Helga Salazar NEUT # 9.4 103/ul Critically high 1.4-6.5 [facility] Comment on above: Performed By: #### C BC #### [facility] [address] [address] [address] Helga Salazar Neutrophils/100 WBC (Bld) 80.6 % Critically high 43.0-75.0 [facility] Comment on above: Performed By: #### C BC #### [facility] [address] [address] [address] Helga Salazar Platelet mean volume (Bld) [Entitic vol] 8.8 fL Critically low 9.5-13.5 [facility] Comment on above: Performed By: #### C BC #### [facility] [address] [address] [address] Helga Salazar PLT 206 103/ul Normal 150-450 [facility] Comment on above: Performed By: #### C BC #### [facility] [address] [place] [address] Dr. Helga Salazar RBC 3.58 106/ul Critically low 4.20-5.40 [facility] Comment on above: Performed By: #### C BC #### [facility] [address] [address] [address] Helga Salazar WBC 11.6 103/ul Critically high 4.0-11.0 [facility] Comment on above: Performed By: #### C BC #### [facility] [address] [address] [address] Helga Salazar CBC AUTO DIFFon 05-19-2022 BASO # 0.0 103/ul Normal 0.0-0.1 [facility] Comment on above: Performed By: #### A 1C #### [facility] [address] [address] [address] Helga Salazar Basophils/100 WBC (Bld) 0.2 % Normal 0.2-2.0 [facility] Comment on above: Performed By: #### A 1C #### [facility] [address] [address] [address] Helga Salazar EO # 0.0 103/ul Normal 0.0-0.7 [facility] Comment on above: Performed By: #### A 1C #### [facility] [address] [address] [address] Helga Salazar Eosinophils/100 WBC (Bld) 0.0 % Critically low 0.9-7.0 [facility] Comment on above: Performed By: #### A 1C #### [facility] [address] [address] [address] Helga Salazar Erythrocyte distribution width (RBC) [Ratio] 15.9 % Critically high 11.0-15.0 [facility] Comment on above: Performed By: #### A 1C #### [facility] [address] [place] [address] Dr. Helga Salazar Hematocrit (Bld) [Volume fraction] 33.7 % Critically low 36.0-48.0 [facility] Comment on above: Performed By: #### A 1C #### [facility] [address] [place] [address] Dr. Helga Salazar Hemoglobin (Bld) [Mass/Vol] 11.5 g/dL Critically low 12.0-16.0 [facility] Comment on above: Performed By: #### A 1C #### [facility] [address] [address] [address] Helga Salazar IG # 0.07 10e3/ul Critically high 0.00-0.03 [facility] Comment on above: Performed By: #### A 1C #### [facility] [address] [address] [address] Helga Salazar IG % 0.6 % Critically high 0.0-0.5 [facility] Comment on above: Performed By: #### A 1C #### [facility] [address] [place] [address] Dr. Helga Salazar LYMPH # 0.9 103/ul Critically low 1.2-3.8 [facility] Comment on above: Performed By: #### A 1C #### [facility] [address] [place] [address] Dr. Helga Salazar Lymphocytes/100 WBC (Bld) 8.1 % Critically low 20.5-60.0 [facility] Comment on above: Performed By: #### A 1C #### [facility] [address] [place] [address] Dr. Helga Salazar MANUAL DIFF REQ NO Normal [facility] Comment on above: Performed By: #### A 1C #### [facility] [address] [place] [address] Dr. Helga Salazar MCH (RBC) [Entitic mass] 28.3 pg Normal 26.7-34.0 [facility] Comment on above: Performed By: #### A 1C #### [facility] [address] [place] [address] Dr. Helga Salazar MCHC (RBC) [Mass/Vol] 34.1 g/dL Normal 29.9-35.2 [facility] Comment on above: Performed By: #### A 1C #### [facility] [address] [place] [address] Dr. Helga Salazar MCV (RBC) [Entitic vol] 82.8 fL Normal 81.0-99.0 [facility] Comment on above: Performed By: #### A 1C #### [facility] [address] [place] [address] Dr. Helga Salazar MONO # 0.6 103/ul Normal 0.3-0.8 [facility] Comment on above: Performed By: #### A 1C #### [facility] [address] [place] [address] Dr. Helga Salazar Monocytes/100 WBC (Bld) 5.6 % Normal 1.7-12.0 [facility] Comment on above: Performed By: #### A 1C #### [facility] [address] [place] [address] Dr. Helga Salazar NEUT # 9.7 103/ul Critically high 1.4-6.5 [facility] Comment on above: Performed By: #### A 1C #### [facility] [address] [address] [address] Helga Salazar Neutrophils/100 WBC (Bld) 85.5 % Critically high 43.0-75.0 [facility] Comment on above: Performed By: #### A 1C #### [facility] [address] [address] [address] Helga Salazar Platelet mean volume (Bld) [Entitic vol] 8.6 fL Critically low 9.5-13.5 [facility] Comment on above: Performed By: #### A 1C #### [facility] [address] [address] [address] Helga Salazar PLT 198 103/ul Normal 150-450 [facility] Comment on above: Performed By: #### A 1C #### [facility] [address] [place] [address] Dr. Helga Salazar RBC 4.07 106/ul Critically low 4.20-5.40 [facility] Comment on above: Performed By: #### A 1C #### [facility] [address] [place] [address] Dr. Helga Salazar WBC 11.4 103/ul Critically high 4.0-11.0 [facility] Comment on above: Performed By: #### A 1C #### [facility] [address] [place] [address] Dr. Helga Salazar DRUG SCREEN RAPID (URINE)on 05-19-2022 AMP Negative Normal NEGATIVE [facility] Comment on above: Performed By: #### D RUGRPD #### [facility] [address] [place] [address] Dr. Helga Salazar BAR Negative Normal NEGATIVE [facility] Comment on above: Performed By: #### D RUGRPD #### [facility] [address] [place] [address] Dr. Helga Salazar BUP Negative Normal NEGATIVE [facility] Comment on above: Performed By: #### D RUGRPD #### [facility] [address] [place] [address] Dr. Helga Salazar BZO Negative Normal NEGATIVE [facility] Comment on above: Performed By: #### D RUGRPD #### [facility] [address] [place] [address] Dr. Helga Salazar TONY Negative Normal NEGATIVE [facility] Comment on above: Performed By: #### D RUGRPD #### [facility] [address] [place] [address] Dr. Helga Salazar CUT-OFFS SEE BELOW Normal [facility] Comment on above: Result Comment: AMP [...] ng/mL Performed By: #### D RUGRPD #### [facility] [address] [place] [address] Dr. Helga Salazar DRUG CUT HEADER DRUG CLASS TEST SYSTEM CUT-OFF CONCENTRATIONS ARE FOLLOWS: Normal [facility] Comment on above: Performed By: #### D RUGRPD #### [facility] [address] [place] [address] Dr. Helga Salazar mAMP Negative Normal NEGATIVE [facility] Comment on above: Performed By: #### D RUGRPD #### [facility] [address] [place] [address] Dr. Helga Salazar MTD Negative Normal NEGATIVE [facility] Comment on above: Performed By: #### D RUGRPD #### [facility] [address] [place] [address] Dr. Helga Salazar OPI Negative Normal NEGATIVE [facility] Comment on above: Performed By: #### D RUGRPD #### [facility] [address] [place] [address] Dr. Helga Salazar OXY Negative Normal NEGATIVE [facility] Comment on above: Performed By: #### D RUGRPD #### [facility] [address] [place] [address] Dr. Helga Salazar PCP Negative Normal NEGATIVE [facility] Comment on above: Performed By: #### D RUGRPD #### [facility] [address] [place] [address] Dr. Helga Salazar PPX Negative Normal NEGATIVE [facility] Comment on above: Performed By: #### D RUGRPD #### [facility] [address] [address] [address] Helga Salazar TCA Negative Normal NEGATIVE [facility] Comment on above: Performed By: #### D RUGRPD #### [facility] [address] [place] [address] Dr. Helga Salazar THC Negative Normal NEGATIVE [facility] Comment on above: Performed By: #### D RUGRPD #### [facility] [address] [place] [address] Dr. Helga Salazar TYPE AND SCREENon 05-19-2022 TYPE AND SCREEN Negative Normal [facility] Comment on above: Performed By: #### T NS #### [facility] [address] [place] [address] Dr. Helga Salazar US PREG AMNIOTIC FLUID [...] by: MICHEAL ZAPATA Date: 2022-05-17 18:25 Normal [facility] US PREG AMNIOTIC FLUID VOLUM Mor 05-15-2022 [...] by: MICHEAL ZAPATA Date: 2022-05-15 15:41 Normal [facility] US PREG BIOPHY W NON STRESSo n [...] by: MICHEAL ZAPATA Date: 2022-05-13 16:00 Normal [facility] US PREG BIOPHY W NON STRESSo [...] by: PERLA SALEH Date: 2022-05-12 16:16 Normal [facility] GROUP B STREP CULTUREon S. agalactiae Ag Ql (Unsp spec) Culture Observations: NEGATIVE FOR GROUP B STREPTOCOCCUS. Normal [facility] Comment on above: Performed By: #### C BC #### [facility] [address] [place] [address] [id number] [address] Helga Salazar PAP ACOG PANEL 2: 30 to 65on 03-12-2022 . . Normal [facility] Comment on above: Result Comment: Perf ormed at: [facility] Performed By: #### [id number] #### [facility] [address] [address] [address] Helga Salazar Age Gdln ACOG Testing 30-65 Normal [facility] Comment on above: Performed By: #### [id number] #### [facility] [address] [place] [address] Dr. Helga Salazar DIAGNOSIS: Comment Normal [facility] Comment on above: Result Comment: NEGA TIVE FOR INTRAEPITHELIAL LESION OR MALIGNANCY. THIS SPECIMEN WAS RESCREENED PART OF OUR CHIEF RESOURCE OFFICER PROGRAM. Performed at: [facility] Performed By: #### [id number] #### [facility] [address] [address] [address] Helga Salazar HPV Aptima Negative Normal Negative [facility] Comment on above: Result Comment: This nucleic acid amplification test detects fourteen high-risk HPV types (16,18,31,33,35,39,45,51,52,56,58,59,66,68) without differentiation. Performed at: =G Performed By: #### 4 [id number] #### [facility] [address] [place] [address] Dr. Helga Salazar HPV Genotype Reflex Comment Normal [facility] Comment on above: Result Comment: Crit eria not met, HPV Genotype not performed. Performed at: [facility] Performed By: #### [id number] #### [facility] [address] [place] [address] Dr. Helga Salazar Methodology: Comment Normal [facility] Comment on above: Result Comment: This liquid based ThinPrep(R) pap test was screened with the use of an image guided system. Performed at: [facility] Performed By: #### [id number] #### [facility] [address] [place] [address] Dr. Helga Salazar Note: Comment Normal [facility] Comment on above: Result Comment: The Pap smear is a screening test designed to aid in the detection of premalignant and malignant conditions of the uterine cervix. It is not a diagnostic procedure and should not be used as the sole means of detecting cervical cancer. Both false-positive and false-negative reports do occur. . Performed at: [facility] Performed By: #### [id number] #### [facility] [address] [place] [address] Dr. Helga Salazar Performed by: Comment Normal [facility] Comment on above: Result Comment: Saji Ornelas, Optical Dispenser (ASCP) Performed at: [facility] Performed By: #### [id number] #### [facility] [address] [address] [address] Helga Salazar QC reviewed by: Comment Normal [facility] Comment on above: Result Comment: Jayson Mcgovern Sr, Optical Dispenser (ASCP) Performed at: [facility] Performed By: #### [id number] #### [facility] [address] [address] [address] Helga Salazar Specimen adequacy: Comment Normal [facility] Comment on above: Result Comment: Sati sfactory for evaluation. No endocervical component is identified. The absence of an endocervical component was confirmed by an additional screening evaluation. Performed at: [facility] Performed By: #### [id number] #### [facility] [address] [place] [address] Dr. Helga Salazar CHLAMYDIA/GONOCOCCUS SABRINA (SW AB/URINE/PAPon 03-05-2022 Chlamydia trachomatis, SABRINA Negative Normal Negative [facility] Comment on above: Performed By: #### C T/NGNA #### [facility] [address] [place] [address] Dr. Helga Salazar Neisseria gonorrhoeae, SABRINA Negative Normal Negative [facility] Comment on above: Performed By: #### C T/NGNA #### [facility] [address] [place] [address] Dr. Helga Salazar CBC AUTO DIFFon 02-20-2022 BASO # 0.0 103/ul Normal 0.0-0.1 [facility] Comment on above: Performed By: #### C BC #### [facility] [address] [place] [address] Dr. Helga Salazar Basophils/100 WBC (Bld) 0.2 % Normal 0.2-2.0 [facility] Comment on above: Performed By: #### C BC #### [facility] [address] [address] [address] Helga Salazar EO # 0.0 103/ul Normal 0.0-0.7 [facility] Comment on above: Performed By: #### C BC #### [facility] [address] [place] [address] Dr. Helga Salazar Eosinophils/100 WBC (Bld) 0.3 % Critically low 0.9-7.0 [facility] Comment on above: Performed By: #### C BC #### [facility] [address] [place] [address] Dr. Helga Salazar Erythrocyte distribution width (RBC) [Ratio] 12.7 % Normal 11.0-15.0 [facility] Comment on above: Performed By: #### C BC #### [facility] [address] [place] [address] Dr. Helga Salazar Hematocrit (Bld) [Volume fraction] 31.4 % Critically low 36.0-48.0 [facility] Comment on above: Performed By: #### C BC #### [facility] [address] [place] [address] Dr. Helga Salazar Hemoglobin (Bld) [Mass/Vol] 10.1 g/dL Critically low 12.0-16.0 [facility] Comment on above: Performed By: #### C BC #### [facility] [address] [place] [address] Dr. Helga Salazar IG # 0.06 10e3/ul Critically high 0.00-0.03 [facility] Comment on above: Performed By: #### C BC #### [facility] [address] [place] [address] Dr. Helga Salazar IG % 0.6 % Critically high 0.0-0.5 [facility] Comment on above: Performed By: #### C BC #### [facility] [address] [place] [address] Dr. Helga Salazar LYMPH # 0.9 103/ul Critically low 1.2-3.8 [facility] Comment on above: Performed By: #### C BC #### [facility] [address] [place] [address] Dr. Helga Salazar Lymphocytes/100 WBC (Bld) 9.4 % Critically low 20.5-60.0 [facility] Comment on above: Performed By: #### C BC #### [facility] [address] [place] [address] Dr. Helga Salazar MANUAL DIFF REQ NO Normal [facility] Comment on above: Performed By: #### C BC #### [facility] [address] [address] [address] Helga Salazar MCH (RBC) [Entitic mass] 28.1 pg Normal 26.7-34.0 [facility] Comment on above: Performed By: #### C BC #### [facility] [address] [place] [address] Dr. Helga Salazar MCHC (RBC) [Mass/Vol] 32.2 g/dL Normal 29.9-35.2 [facility] Comment on above: Performed By: #### C BC #### [facility] [address] [place] [address] Dr. Helag Salazar MCV (RBC) [Entitic vol] 87.5 fL Normal 81.0-99.0 [facility] Comment on above: Performed By: #### C BC #### [facility] [address] [place] [address] Dr. Helga Salazar MONO # 0.6 103/ul Normal 0.3-0.8 [facility] Comment on above: Performed By: #### C BC #### [facility] [address] [place] [address] Dr. Helga Salazar Monocytes/100 WBC (Bld) 6.2 % Normal 1.7-12.0 [facility] Comment on above: Performed By: #### C BC #### [facility] [address] [place] [address] Dr. Helga Salazar NEUT # 7.7 103/ul Critically high 1.4-6.5 [facility] Comment on above: Performed By: #### C BC #### [facility] [address] [place] [address] Dr. Helga Salazar Neutrophils/100 WBC (Bld) 83.3 % Critically high 43.0-75.0 [facility] Comment on above: Performed By: #### C BC #### [facility] [address] [address] [address] Helga Salazar Platelet mean volume (Bld) [Entitic vol] 8.2 fL Critically low 9.5-13.5 [facility] Comment on above: Performed By: #### C BC #### [facility] [address] [address] [address] Helga Salazar PLT 247 103/ul Normal 150-450 [facility] Comment on above: Performed By: #### C BC #### [facility] [address] [address] [address] Helga Salazar RBC 3.59 106/ul Critically low 4.20-5.40 [facility] Comment on above: Performed By: #### C BC #### [facility] [address] [address] [address] Helga Salazar WBC 9.3 103/ul Normal 4.0-11.0 [facility] Comment on above: Performed By: #### C BC #### [facility] [address] [address] [address] Helga Salazar GLUCOSE - 1HRon 02-20-2022 Glucose [Mass/Vol] 114 mg/dL Critically high 74-106 T [facility] Comment on above: Performed By: #### A 1C #### [facility] [address] [place] [address] Dr. Helga Salazar US PREG ANATOMY SINGLEon [...] PERLA SALEH Date: 2021-12-25 17:46 Normal [facility] HEP B SURFACE ANTIGEN SCREEN on 10-25-2021 HBsAg Screen Negative Normal Negative [facility] Comment on above: Performed By: #### A 1C #### [facility] [address] [address] [address] Helga Salazar HEPATITIS C VIRUS AB W/ REFL EX QUANTon 10-25-2021 HCV AB <0.1 Normal 0.0-0.9 [facility] Comment on above: Performed By: #### H CVPCRR #### [facility] [address] [address] [address] Helga Salazar Interpretation: Comment Normal [facility] Comment on above: Result Comment: Nega tive Not infected with HCV, unless recent infection is suspected or other evidence exists to indicate HCV infection. Performed By: #### H CVPCRR #### [facility] [address] [place] [address] Dr. Helga Salazar HIV 1 AND 2 WITH REFLEXon HIV Screen 4th Generation wRfx Non-Reactive Normal Non Reactive [facility] Comment on above: Result Comment: HIV Negative HIV-1/HIV-2 antibodies and HIV-1 p24 antigen were NOT detected. There is no laboratory evidence of HIV infection. Performed By: #### C BC #### [facility] [address] [place] [address] Dr. Helga Salazar RPR QUANTon 10-25-2021 Rapid Plasma Reagin, Quant Non-Reactive Normal NonRea<1:1 [facility] Comment on above: Result Comment: Plea se Note: This test does not meet current guidelines for screening and diagnosis of syphilis. This test is intended for following treatment response in patients being treated for syphilis infection. To screen for syphilis infection, a reflex cascade that includes both RPR and a treponema-specific assay should be utilized, such as Treponema pallidum (Syphilis) Screening Ransom (423430) or Rapid Plasma Reagin (RPR) Test With Reflex to Quantitative RPR and Confirmatory Treponema pallidum Antibodies (748841). Performed By: #### C BC #### [facility] [address] [place] [address] Dr. Helga Salazar RUBELLA AB IGGon 10-25-2021 Rubella Antibodies, IgG 1.54 index Normal Immune >0.99 [facility] Comment on above: Result Comment: Non- immune <0.90 Equivocal 0.90 - 0.99 Immune >0.99 Performed By: #### A 1C #### [facility] [address] [place] [address] Dr. Helga Salazar CBC AUTO DIFFon 10-24-2021 BASO # 0.0 103/ul Normal 0.0-0.1 [facility] Comment on above: Performed By: #### C BC #### [facility] [address] [place] [address] Dr. Helga Salazar Basophils/100 WBC (Bld) 0.2 % Normal 0.2-2.0 [facility] Comment on above: Performed By: #### C BC #### [facility] [address] [place] [address] Dr. Helga Salazar EO # 0.0 103/ul Normal 0.0-0.7 [facility] Comment on above: Performed By: #### C BC #### [facility] [address] [place] [address] Dr. Helga Salazar Eosinophils/100 WBC (Bld) 0.5 % Critically low 0.9-7.0 [facility] Comment on above: Performed By: #### C BC #### [facility] [address] [place] [address] Dr. Helga Salazar Erythrocyte distribution width (RBC) [Ratio] 12.3 % Normal 11.0-15.0 [facility] Comment on above: Performed By: #### C BC #### [facility] [address] [place] [address] Dr. Helga Salazar Hematocrit (Bld) [Volume fraction] 35.2 % Critically low 36.0-48.0 [facility] Comment on above: Performed By: #### C BC #### [facility] [address] [place] [address] Dr. Helga Salazar Hemoglobin (Bld) [Mass/Vol] 12.0 g/dL Normal 12.0-16.0 [facility] Comment on above: Performed By: #### C BC #### [facility] [address] [place] [address] Dr. Helga Salazar IG # 0.03 10e3/ul Normal 0.00-0.03 [facility] Comment on above: Performed By: #### C BC #### [facility] [address] [place] [address] Dr. Helga Salazar IG % 0.4 % Normal 0.0-0.5 [facility] Comment on above: Performed By: #### C BC #### [facility] [address] [place] [address] Dr. Helga Salazar LYMPH # 1.4 103/ul Normal 1.2-3.8 [facility] Comment on above: Performed By: #### C BC #### [facility] [address] [place] [address] Dr. Helga Salazar Lymphocytes/100 WBC (Bld) 16.8 % Critically low 20.5-60.0 [facility] Comment on above: Performed By: #### C BC #### [facility] [address] [place] [address] Dr. Helga Salazar MANUAL DIFF REQ NO Normal [facility] Comment on above: Performed By: #### C BC #### [facility] [address] [place] [address] Dr. Helga Salazar MCH (RBC) [Entitic mass] 30.3 pg Normal 26.7-34.0 [facility] Comment on above: Performed By: #### C BC #### [facility] [address] [place] [address] Dr. Helga Salazar MCHC (RBC) [Mass/Vol] 34.1 g/dL Normal 29.9-35.2 [facility] Comment on above: Performed By: #### C BC #### [facility] [address] [place] [address] Dr. Helga Salazar MCV (RBC) [Entitic vol] 88.9 fL Normal 81.0-99.0 [facility] Comment on above: Performed By: #### C BC #### [facility] [address] [place] [address] Dr. Helga Salazar MONO # 0.6 103/ul Normal 0.3-0.8 [facility] Comment on above: Performed By: #### C BC #### [facility] [address] [place] [address] Dr. Helga Salazar Monocytes/100 WBC (Bld) 6.7 % Normal 1.7-12.0 [facility] Comment on above: Performed By: #### C BC #### [facility] [address] [place] [address] Dr. Helga Salazar NEUT # 6.2 103/ul Normal 1.4-6.5 [facility] Comment on above: Performed By: #### C BC #### [facility] [address] [place] [address] Dr. Helga Salazar Neutrophils/100 WBC (Bld) 75.4 % Critically high 43.0-75.0 [facility] Comment on above: Performed By: #### C BC #### [facility] [address] [place] [address] Dr. Helga Salazar Platelet mean volume (Bld) [Entitic vol] 8.9 fL Critically low 9.5-13.5 [facility] Comment on above: Performed By: #### C BC #### [facility] [address] [place] [address] Dr. Helga Salazar PLT 268 103/ul Normal 150-450 [facility] Comment on above: Performed By: #### C BC #### [facility] [address] [place] [address] [address] Helga Salazar RBC 3.96 106/ul Critically low 4.20-5.40 [facility] Comment on above: Performed By: #### C BC #### [facility] [address] [place] [address] Dr. Helga Salazar WBC 8.2 103/ul Normal 4.0-11.0 [facility] Comment on above: Performed By: #### C BC #### [facility] [address] [place] [address] Dr. Helga Salazar CULTURE URINEon 10-24-2021 CULTURE URINE Culture Observations: HEAVY GROWTH OF MIXED GENITAL ESEQUIEL. NO POTENTIAL PATHOGENS SEEN. Normal [facility] Comment on above: Performed By: #### U RCX #### [facility] [address] [place] [address] Dr. Helga Salazar GLYCOHEMOGLOBIN A1Con 2021 ADA RECOMMENDATION SEE BELOW Normal [facility] Comment on above: Result Comment: ADA RECOMMENDED LIMIT 4.0 - 6.0 ADA THERAPEUTIC TARGET < 7.0 ACTION SUGGESTED > 7.0 Performed By: #### A 1C #### [facility] [address] [place] [address] Dr. Helga Salazar Glucose [Mass/Vol] 85 mg/dL Normal [facility] Comment on above: Performed By: #### A 1C #### [facility] [address] [place] [address] Dr. Helga Salazar HbA1c (Bld) [Mass fraction] 4.6 % Normal 4.5-6.2 [facility] Comment on above: Performed By: #### A 1C #### [facility] [address] [place], [place] [address] Dr. Helga Salazar TYPE AND SCREENon 10-24-2021 TYPE AND SCREEN Negative Normal [facility] Comment on above: Performed By: #### C BC #### [facility] [address] [place], [place] [address] Dr. Helga Salazar US PREG TVon 10-10-2021 [...] by: PERLA SALEH Date: 2021-10-10 16:54 Normal [facility] XR wrist BI 2Von 12-07-2020 XR wrist BI 2V [facility] [place] [address] [place] [address] XRay Report Signed Patient: Homa Bae MR#: [id number] : 1990 Acct:[id number] Age/Sex: 30 / F ADM Date: 12/07/20 Loc: [facility] Room: Type: [facility] CLI Attending Dr: Lul Ocampo DO Ordering [...] Gideon Londono M.D.12/07/2020 12:59 PM Dictation Location: [place] [address] Transcribed By: [facility] 12/07/20 1259 Dictated By: Gideon Londono MD 12/07/20 1253 Signed By: 12/07/20 1259 [facility] XR wrist BI 2V [facility] [employer] Other XR wrist BI 2V [facility] [employer] Other XR wrist BI 2V [address] [place] [address] [employer] Other XR wrist BI 2[place] [address] [facility] [employer] Other XR wrist BI 2V XRay Report [employer] Other XR wrist BI 2V Signed [employer] Other XR wrist BI 2V Patient: Homa Bae MR#: [id number] [place] [employer] Other XR wrist BI 2V 11304 [employer] Other XR wrist BI 2V : 1990 Acct:[id number] [employer] Other XR wrist BI 2V Age/Sex: 30 / F ADM Date: 12/07/20 [employer] Other XR wrist BI 2V Loc: [facility] Room: Type: [facility] [employer] Other XR wrist BI 2V Attending Dr: Lul Ocampo DO [employer] Other XR wrist BI 2V Ordering Provider: Lul Ocampo DO [employer] Other XR wrist BI 2V Date of Service: 12/07/20 [employer] Other XR wrist BI 2V XR/XR wrist BI 2V: Other closed extra-articular fracture of distal end of [employer] Other XR wrist BI 2V left [employer] Other XR wrist BI 2V Copies to: Lul Ocampo DO [employer] Other XR wrist BI 2V CLINICAL HISTORY: Follow-up internal fixation of distal radial fracture on the left and fracture of [employer] Other XR wrist BI 2V the distal right radius. Date of injury on 10/02/2020. [employer] Other XR wrist BI 2V XR wrist BI 2V [employer] Other XR wrist BI 2V COMPARISON: 11/09/2020 [employer] Other XR wrist BI 2V FINDINGS: AP and lateral views of the bilateral wrists were obtained. The patient is status post [employer] Other XR wrist BI 2V internal fixation of distal left radial fracture with placement of a volar plate and multiple [employer] Other XR wrist BI 2V screws. There is further obliteration of the radiolucent fracture line at the dorsal aspect of the [employer] Other XR wrist BI 2V radius since prior examination. There is stable bony alignment. [employer] Other XR wrist BI 2V The distal right radius shows a healing or healed hairline fracture with stable alignment. [employer] Other XR wrist BI 2V XR/XR wrist BI 2V [employer] Other XR wrist BI 2V IMPRESSION: [employer] Other XR wrist BI 2V INTERNAL FIXATION OF THE DISTAL LEFT RADIAL FRACTURE, STABLE ALIGNMENT. [employer] Other XR wrist BI 2V A HEALING OR HEALED DISTAL RIGHT RADIAL FRACTURE. [employer] Other XR wrist BI 2V Impression dictated by: Gideon Londono M.D.12/07/2020 12:59 PM [employer] Other XR wrist BI 2V Dictation Location: [facility]-- [employer] Other XR wrist BI 2V Transcribed By: [facility] 12/07/20 1259 [employer] Other XR wrist BI 2V Dictated By: Gideon Londono MD 12/07/20 1253 [employer] Other XR wrist BI 2V Signed By: [employer] Other XR wrist BI 2V 12/07/20 1252 Patient [employer] Other XR wrist BI 2Von 11-09-2020 XR wrist BI 2V [facility] [place] [address] [place] [address] XRay Report Signed Patient: Homa Bae MR#: [id number] : 1990 Acct:[id number] Age/Sex: 30 / F ADM Date: 11/09/20 Loc: [facility] Room: Type: [facility] Attending Dr: Lul Ocampo DO Ordering Provider: [...] Cammie Jiang M.D.11/09/2020 1:31 PM Dictation Location: [facility] Transcribed By: [facility] 11/09/20 1331 Dictated By: Cammie Jiang MD 11/09/20 1328 Signed By: 11/09/20 1331 Normal [facility] HCG,Urineon 10-10-2020 Beta HCG ( test) Ql (U) Negative Normal [facility] Comment on above: Result Comment: PERF ORMED BY: [place] [address] PATHOLOGIST DUSTING AND BRUSHING MACHINE OPERATOR MAX MANE M.D. Performed By: #### U HCG #### [address] XR wrist LT min 3V*on 2020 XR wrist LT min 3V* [facility] [place] [address] [place] [address] XRay Report Signed Patient: Homa Bae MR#: [id number] : 1990 Acct:[id number] Age/Sex: 30 / F ADM Date: 10/10/20 Loc: [place] Room: Type: [facility] Attending Dr: Lul Ocampo DO Ordering [...] Dillan Fischer M.D.10/10/2020 1:45 PM Dictation Location: [facility] Transcribed By: [facility] 10/10/20 1345 Dictated By: Dillan Fischer DO 10/10/20 1338 Signed By: 10/10/20 1345 [facility] XR wrist RT 2Von 10-10-2020 XR wrist RT 2V [facility] Main [place] [id number] XRay Report Signed Patient: Homa Bae MR#: [id number] : 1990 Acct:[id number] Age/Sex: 30 / F ADM Date: 10/10/20 Loc: [place] Room: Type: [facility] Attending Dr: Lul Ocampo DO Ordering [...] River Rice M.D.10/10/2020 2:17 PM Dictation Location: [place] [address] Transcribed By: [facility] 10/10/20 1417 Dictated By: River Rice II, MD 10/10/20 1413 Signed By: 10/10/20 1417 [facility] SARS-CoV-2 (COVID-19) RNA SABRINA+probe Ql (Unsp spec) Negative Normal Negative [facility] Comment on above: Order Comment: Healt hcare Worker?: N Result Comment: Testing for SARS-CoV-2 by RT-PCR This test was developed and its performance characteristics determined by [employer] ([facility]) and validated at the [facility]. This test has not been FDA [...] is terminated or revoked sooner. PERFORMED BY: [place] [address] PATHOLOGIST DUSTING AND BRUSHING MACHINE OPERATOR MAX MANE M.D. Performed By: #### C OVID 19 [facility] #### [address] XR elbow LT min 3V*on 2020 XR elbow LT min 3V* [facility] [place] [address] [place] [address] XRay Report Signed Patient: Homa Bae MR#: [id number] : 1990 Acct:[id number] Age/Sex: 30 / F ADM Date: 10/07/20 Loc: ER Room: Type: [facility] ER Attending Dr: Ordering Provider: Francisco Beverly [...] River Rice M.D.10/07/2020 5:18 PM Dictation Location: [place] [address] Transcribed By: [facility] 10/07/201717 Dictated By: River Rice II, MD 10/07/201714 Signed By: 10/07/201717 Normal [facility] XR wrist min BI 3Von 021 XR wrist min BI 3V [facility] [place] [address] [place] [address] XRay Report Signed Patient: Homa Bae MR#: [id number] : 1990 Acct:[id number] Age/Sex: 30 / F ADM Date: 10/07/20 Loc: ER Room: Type: [facility] ER Attending Dr: Ordering Provider: Francisco Beverly APRN Date of Service: 10/07/20 XR/XR wrist min BI 3V: Extremity Injury, Upper Copies to: rFancisco Beverly APRN XR wrist min BI 3V [...] River Rice M.D.10/07/2020 5:15 PM Dictation Location: [place] [address] Transcribed By: [facility] 10/07/201714 Dictated By: River Rice II, MD 10/07/201712 Signed By: 10/07/201714 [facility] Vital Signs Date Time Vital Sign Value Performing Clinician Faci lity 03-10-2024 12:06-0500 Body mass index (BMI) [Ratio] 34.52 kg/m2 Viania Amanda DO Work Phone: [facility] 03-10-2024 12:06-0500 Body weight 91.23 kg Ivania Amanda DO Work Phone: [facility] 03-10-2024 12:06-0500 Diastolic blood pressure 74 mm[Hg] Ivania Amanda DO Work Phone: [facility] 03-10-2024 12:06-0500 Systolic blood pressure 110 mm[Hg] Ivania Amanda DO Work Phone: [facility] 02-24-2024 13:39-0500 Body mass index (BMI) [Ratio] 34.16 kg/m2 Ivania Amanda DO Work Phone: [facility] 02-24-2024 13:39-0500 Body weight 90.27 kg Ivania Amanda DO Work Phone: [facility] 02-24-2024 13:39-0500 Diastolic blood pressure 70 mm[Hg] Ivania Amanda DO Work Phone: [facility] 02-24-2024 13:39-0500 Systolic blood pressure 118 mm[Hg] Ivania Amanda DO Work Phone: [facility] 02-03-2024 14:04-0500 Diastolic blood pressure 66 mm[Hg] Keyonna DAVIES Work Phone: [facility] 02-03-2024 14:04-0500 Systolic blood pressure 110 mm[Hg] Keyonna DAVIES Work Phone: [facility] 01-20-2024 14:02-0500 Body mass index (BMI) [Ratio] 32.46 kg/m2 Keyonna Colton PA Work Phone: [facility] 01-20-2024 14:02-0500 Body weight 85.78 kg Keyonna Colton PA Work Phone: [facility] 01-20-2024 14:02-0500 Diastolic blood pressure 60 mm[Hg] Keyonna Sperryville PA Work Phone: [facility] 01-20-2024 14:02-0500 Systolic blood pressure 110 mm[Hg] Keyonna Colton PA Work Phone: [facility] 01-06-2024 11:15-0400 Body mass index (BMI) [Ratio] 31.76 kg/m2 Ivania Amanda DO Work Phone: [facility] 01-06-2024 11:15-0400 Body weight 83.92 kg Ivania Amanda DO Work Phone: [facility] 01-06-2024 11:15-0400 Diastolic blood pressure 64 mm[Hg] Ivania Amanda DO Work Phone: [facility] 01-06-2024 11:15-0400 Systolic blood pressure 108 mm[Hg] Ivania Amanda DO Work Phone: [facility] 12-09-2023 11:47-0400 Body mass index (BMI) [Ratio] 30.21 kg/m2 Keyonna Sperryville PA Work Phone: [facility] 12-09-2023 11:47-0400 Body weight 79.83 kg Keyonna Colton PA Work Phone: [facility] 12-09-2023 11:47-0400 Diastolic blood pressure 62 mm[Hg] Keyonna Colton PA Work Phone: [facility] 12-09-2023 11:47-0400 Systolic blood pressure 102 mm[Hg] Keyonna Sperry[place] PA Work Phone: [facility] 11-09-2023 10:19-0400 Body mass index (BMI) [Ratio] 28.8 kg/m2 Ivania Amanda DO Work Phone: [facility] 11-09-2023 10:19-0400 Body weight 76.11 kg Ivania Amanda DO Work Phone: [facility] 11-09-2023 10:19-0400 Diastolic blood pressure 58 mm[Hg] Ivania Amanda DO Work Phone: [facility] 11-09-2023 10:19-0400 Systolic blood pressure 100 mm[Hg] Ivania Amanda DO Work Phone: [facility] 04-29-2023 13:47-0500 Body mass index (BMI) [Ratio] 28.49 kg/m2 Yanick Swathi-Nossek SOLID WASTE ANALYST-ACCOUNTS RECEIVABLE ANALYST Work Phone: [facility] 04-29-2023 13:47-0500 Body weight 75.3 kg Yanick Swathi-Nossek SOLID WASTE ANALYST-ACCOUNTS RECEIVABLE ANALYST Work Phone: [facility] 04-29-2023 13:47-0500 Diastolic blood pressure 72 mm[Hg] Yanick Swathi-Nossek SOLID WASTE ANALYST-ACCOUNTS RECEIVABLE ANALYST Work Phone: [facility] 04-29-2023 13:47-0500 Heart rate 85 /min Yanick Swathi-Nossek SOLID WASTE ANALYST-ACCOUNTS RECEIVABLE ANALYST Work Phone: [facility] 04-29-2023 13:47-0500 Systolic blood pressure 110 mm[Hg] Yanick Swathi-Nossek SOLID WASTE ANALYST-ACCOUNTS RECEIVABLE ANALYST Work Phone: [facility] Healthcare Encounters Encounter Date Encounter Type Care Provider Facility Start: 03-10-2024 End: 03-10-2024 Bamboo flowsheet Ivania Amanda DO Work Phone: [facility] Start: 03-10-2024 End: 03-10-2024 Bamboo flowsheet Ivania Amanda DO Work Phone: [facility] Start: 03-10-2024 End: 03-10-2024 flow sheet Ivania Amanda DO Work Phone: [facility] Comment on above: Third trimester preg vivek; 35 weeks gestation of Start: 02-24-2024 End: 02-24-2024 Bamboo flowsheet Ivania Amanda DO Work Phone: [facility] Start: 02-24-2024 End: 02-24-2024 Bamboo flowsheet Ivania Amanda DO Work Phone: [facility] Start: 02-24-2024 End: 02-24-2024 ambulatory IVANIA AMANDA Not Available Start: 02-24-2024 End: 02-24-2024 flow sheet Ivania Amanda DO Work Phone: [facility] Comment on above: Third trimester preg vivek; 33 weeks gestation of ; Excessive growth affecting management of , antepartum, single or unspecified fetus Start: 02-03-2024 End: 02-03-2024 Bamboo flowsheet Keyonna DAVIES Work Phone: [facility] Start: 02-03-2024 End: 02-03-2024 Bamboo flowsheet Keyonna DAVIES Work Phone: [facility] Start: 02-03-2024 End: 02-03-2024 ambulatory KEYONNA SEGURA Not Available Start: 02-03-2024 End: 02-03-2024 flow sheet Keyonna DAVIES Work Phone: [facility] Comment on above: Third trimester preg vivek; 30 weeks gestation of Start: 01-20-2024 End: 01-20-2024 Bamboo flowsheet Keyonna DAVIES Work Phone: [facility] Start: 01-20-2024 End: 01-20-2024 Bamboo flowsheet Keyonna DAVIES Work Phone: [facility] Start: 01-20-2024 End: 01-20-2024 ambulatory KEYONNA SEGURA Not Available Start: 01-20-2024 End: 01-20-2024 flow sheet Keyonna DAVIES Work Phone: [facility] Comment on above: 28 weeks gestation o f ; Third trimester Start: 01-19-2024 End: 01-19-2024 Clinisync Result Encounter Ivania Amanda DO Work Phone: [facility] Unsolicited Start: 01-19-2024 End: 01-19-2024 Clinisync Result Encounter Ivania Amanda DO Work Phone: [facility] Unsolicited Start: 01-06-2024 End: 01-06-2024 Bamboo flowsheet Ivania Amanda DO Work Phone: [facility] Start: 01-06-2024 End: 01-06-2024 Bamboo flowsheet Ivania Amanda DO Work Phone: [facility] Start: 01-06-2024 End: 01-06-2024 flow sheet Ivania Amanda DO Work Phone: [facility] Comment on above: Second trimester pre gnancy; 26 weeks gestation of ; Diabetes mellitus screening Start: 01-06-2024 End: 01-06-2024 ambulatory IVANIA AMANDA Not Available Start: 12-14-2023 End: 12-14-2023 Clinisync Result Encounter Generic External Data Provider [facility] Unsolicited Start: 12-14-2023 End: 12-14-2023 Clinisync Result Encounter Generic External Data Provider [facility] Unsolicited Start: 12-09-2023 End: 12-09-2023 Bamboo flowsheet Keyonna DAVIES Work Phone: [facility] Start: 12-09-2023 End: 12-09-2023 Bamboo flowsheet Keyonna DAVIES Work Phone: [facility] Start: 12-09-2023 End: 12-09-2023 ambulatory KEYONNA SEGURA Not Available Start: 12-09-2023 End: 12-09-2023 flow sheet Keyonna DAVIES Work Phone: [facility] Comment on above: Second trimester pre gnancy Start: 11-09-2023 End: 11-09-2023 Bamboo flowsheet Ivania Georgezio DO Work Phone: [facility] Start: 11-09-2023 End: 11-13-2023 Clinisync Result Encounter Generic External Data Provider [facility] Unsolicited Start: 11-09-2023 End: 11-11-2023 External Result Encounter Keyonna Segura KEKE Work Phone: [facility] Unsolicited Start: 11-09-2023 End: 11-13-2023 External Result Encounter Keyonna Segura KEKE Work Phone: [facility] Unsolicited Start: 11-09-2023 End: 11-09-2023 ambulatory IVANIAChelsea AGUILERAO Not Available Start: 11-09-2023 End: 11-09-2023 Patient encounter procedure Ivaniachelsea Aguilerao DO Work Phone: [facility] Start: 11-09-2023 End: 11-09-2023 Periodic preventive med est patient 18-39 yrs Ivania Amanda DO Work Phone: [facility] Comment on above: 18 weeks gestation o f ; Screening, , for anatomic survey; Well woman exam with routine gynecological exam; Exposure to STD; Vaginal discharge Start: 10-23-2023 End: 10-23-2023 ambulatory YANICK M SWATHI-NOSSEK Not Available Start: 10-09-2023 End: 10-09-2023 ambulatory YANICK SWATHI-NOSSEK Not Available Start: 07-24-2023 End: 07-24-2023 ambulatory YANICK M SWATHI-NOSSEK Not Available Start: 05-22-2023 End: 05-22-2023 ambulatory YANICK M SWATHI-NOSSEK Not Available Start: 05-07-2023 End: 05-07-2023 ambulatory ESTEFANI KEY Not Available Start: 04-29-2023 Bamboo flowsheet Yanick M Swathi-Nossek SOLID WASTE ANALYST-ACCOUNTS RECEIVABLE ANALYST Work Phone: [facility] Start: 04-29-2023 Bamboo flowsheet Yanick M Swathi-Nossek SOLID WASTE ANALYST-ACCOUNTS RECEIVABLE ANALYST Work Phone: [facility] Start: 04-29-2023 End: 04-29-2023 Office outpatient visit 25 minutes Yanick Rose Katt SOLID WASTE ANALYST-ACCOUNTS RECEIVABLE ANALYST Work Phone: [facility] Comment on above: Anxiety; Attention deficit hyperactivity disorder (ADHD), predominantly inattentive type (CMS/HCC) Start: 04-29-2023 End: 04-29-2023 ambulatory YANICK Rose KATT Not Available Start: 03-17-2023 End: 03-17-2023 ambulatory YANIKC Rose KATT Not Available Start: 05-27-[address] FELICIANO [...] Date Procedure Procedure Detail Performing Clinician Start: 03-10-2024 Urnls dip stick/tabl et rgnt non-auto w/o micrscp Ivania Amanda DO Work Phone: Start: 02-24-2024 Urnls dip stick/tabl et rgnt non-auto w/o micrscp Ivania Amanda DO Work Phone: Start: 02-03-2024 Urnls dip stick/tabl et rgnt non-auto w/o micrscp Keyonna DAVIES Work Phone: Start: 01-20-2024 Urnls dip stick/tabl et rgnt non-auto w/o micrscp Keyonna DAVIES Work Phone: Start: 01-19-2024 ALL CBC WITH AUTO DIFF Generic External Data Provider Start: 01-06-2024 Urnls dip stick/tabl et rgnt non-auto w/o micrscp Ivania Amanda DO Work Phone: Start: 12-14-2023 ALL CBC WITH AUTO DIFF Ivania Amanda DO Work Phone: Start: 12-09-2023 Urnls dip stick/tabl et rgnt non-auto w/o micrscp Keyonna DAVIES Work Phone: Start: 11-09-2023 URETHRITIS/DISCHARGE PLUS VAGINITIS (HTRX) Keyonna DAVIES Work Phone: Start: 11-09-2023 Urnls dip stick/tabl et rgnt non-auto w/o micrscp Ivania Amanda DO Work Phone: Start: 11-09-2023 IGP,APTIMA HPV,AGE GDLN Ivania Amanda DO Work Phone: Start: 11-09-2023 Microscopic observat ion [Identifier] in Cervix by Cyto stain Keyonna DAVIES Work Phone: Start: 05-19-2022 Delivery of Products of Conception, External Approach DR FELICIANO CALLAHAN . Start: 05-19-2022 Drainage of Amniotic Fluid, Therapeutic from Products of Conception, Via Natural or Artificial Opening DR FELICIANO CALLAHAN . Start: 05-19-2022 Introduction of Othe r Hormone into Peripheral Vein, Percutaneous Approach DR FELICIANO CALLAHAN . Plan of Treatment Date Care Activity Detail Author Start: 11-08-2026 Screening for malign ant neoplasm of cervix [facility] Start: 03-22-2024 End: 03-22-2024 Patient encounter procedure 03/22/2024 9:30 AM EST Routine [facility] [address] [place] [id number] Ivania Patel, DO [address] [place] [address] [place] [address] [facility] Start: 03-10-2024 End: 03-10-2025 CULTURE, GROUP B STREP WITH SUSCEPTIBLITY CULTURE, GROUP B STREP WITH SUSCEPTIBLITY Lab Routine Third trimester 35 weeks gestation of Expected: 03/10/2024, Expires: 03/10/2025 [facility] Work Phone: Comment on above: Expected: 03/10/2024 , Expires: 03/10/2025 Start: 03-10-2024 End: 03-10-2024 Patient encounter procedure 03/10/2024 11:40 AM EST [facility]ine [facility] [address] [facility] [place] [phone] Ivania Patel, DO [address] [place] [address] [place] [address] [facility] Start: 03-07-2024 End: 03-07-2024 Professional / ancillary services management 03/07/2024 1:00 PM EST Ancillary Procedure [facility] [address] [place] [id number] [facility] Start: 02-24-2024 End: 02-23-2025 US for US OB SCAN FOR GROWTH Imaging Routine Excessive growth affecting management of , antepartum, single or unspecified fetus Expected: 02/24/2024 (Approximate), Expires: 02/23/2025 [facility] Work Phone: Comment on above: Expected: 02/24/2024 (Approximate), Expires: 02/23/2025 Start: 02-24-2024 End: 02-24-2024 Patient encounter procedure 02/24/2024 1:00 PM EST Routine [facility] [address] [place] [id number] Ivania Patel DO [address] [place], [place] [id number] [facility] Start: 02-03-2024 End: 02-03-2024 Patient encounter procedure 02/03/2024 1:20 PM EST Routine [facility] [address] [place] [id number] Keyonna Segura, PA [address] [place], [place] [id number] [facility] Start: 01-20-2024 End: 01-20-2024 Patient encounter procedure 01/20/2024 1:30 PM EST Routine [facility] [address] [place] [phone] Keyonna Segura, PA [address] [place] [address] [facility] Start: 01-06-2024 End: 01-05-2025 CBC panel - Blood by Automated count CBC Lab Routine Diabetes mellitus screening Expected: 01/06/2024 (Approximate), Expires: 01/05/2025 [facility] Work Phone: Comment on above: Expected: 01/06/2024 (Approximate), Expires: 01/05/2025 Start: 01-06-2024 End: 01-05-2025 Measurement of glucose 1 hour after glucose challenge for glucose tolerance test Glucose tolerance, 1 hour Lab Routine Diabetes mellitus screening Expected: 01/06/2024 (Approximate), Expires: 01/05/2025 [facility] Comment on above: Expected: 01/06/2024 (Approximate), Expires: 01/05/2025 Start: 01-06-2024 End: 01-06-2024 Patient encounter procedure [facility] Comment on above: Arrived Start: 01-04-2024 End: 01-04-2024 Professional / ancillary services management 01/04/2024 11:00 AM EDT Ancillary Procedure [facility] [address] [place] [address] [facility] Start: 12-09-2023 End: 12-09-2023 Patient encounter procedure 12/09/2023 11:20 AM EDT Routine [facility] [address] [place] [address] Keyonna Segura PA [address] [place] [address] [facility] Start: 11-15-2023 Influenza vaccination Influenza Vacc ine (#1) [facility] Start: 11-09-2023 End: 01-09-2024 Alpha fetoprotein, maternal Alpha fetoprotein, maternal Lab Routine 18 weeks gestation of Expected: 11/09/2023 (Approximate), Expires: 01/09/2024 [facility] Comment on above: Expected: 11/09/2023 (Approximate), Expires: 01/09/2024 Start: 11-09-2023 End: 11-08-2024 US for US OB ANATOMY SINGLE W US OB CERVICAL LENGTH Imaging Routine Screening, , for anatomic survey Expected: 11/09/2023 (Approximate), Expires: 11/08/2024 [facility] Work Phone: Comment on above: Expected: 11/09/2023 (Approximate), Expires: 11/08/2024 Start: 05-22-2023 End: 05-22-2023 Telemedicine consultation with patient 05/22/2023 8:30 AM EST Telemedicine [facility] [address] [place] [phone] Yanick Araujo, [employer] ANALYST-ACCOUNTS RECEIVABLE ANALYST [address] [place] [address] [facility] Start: 05-07-2023 End: 05-07-2023 Social Work 05/07/2023 1:00 PM EST Social Work [facility] [address] [place] [address] Estefani Key, [facility] [address] [place] [address] [facility] Start: 04-29-2023 End: 04-29-2023 Patient encounter procedure 04/29/2023 2:00 PM EST Office Visit [facility] [address] [place] [address] Yanick Araujo, SOL[employer] WASTE ANALYST-ACCOUNTS RECEIVABLE ANALYST [address] [place] [address] Arrived [facility] Comment on above: Arrived Start: 11-14-2022 Influenza vaccination Influenza Vacc ine (#1) [facility] Start: 2020 Screening for malign ant neoplasm of cervix [facility] Start: 07-15-2011 Screening for malign ant neoplasm of cervix Pap Smear [facility] CHLAMYDIA TRACHOMATI S (GENITO/STI) CHLAMYDIA TRACHOMATIS (GENITO/STI) Lab Routine Exposure to STD Ordered: 11/09/2023 [facility] Comment on above: Ordered: 11/09/2023 Cytology Cervical or vaginal smear or scraping study Pap Smear Pathology and Cytology Routine Well woman exam with routine gynecological exam Ordered: 11/09/2023 [facility] Comment on above: Ordered: 11/09/2023 Human papilloma viru s DNA [Presence] in Unspecified specimen by Probe with amplification HPV DNA probe, amplified Microbiology Routine Well woman exam with routine gynecological exam Ordered: 11/09/2023 [facility] Comment on above: Ordered: 11/09/2023 Neisseria gonorrhoea e DNA [Presence] in Unspecified specimen by SABRINA with probe detection Neisseria gonorrhea DNA probe, direct Lab Routine Exposure to STD Ordered: 11/09/2023 [facility] Comment on above: Ordered: 11/09/2023 SURESWAB(R) ADVANCED VAGINITIS PLUS, TMA SURESWAB(R) ADVANCED VAGINITIS PLUS, TMA Pathology and Cytology Routine Vaginal discharge Ordered: 11/09/2023 [facility] Comment on above: Ordered: 11/09/2023 Payers Date Payer Category Payer Private Health Insurance [id number] 2022 Private Health Insurance [id number] 1990 Unknown [id number] 2.16.84 [id number] 1990 Unknown [id number] 2.16.84 0.1.955871.3.579.2.593 1990 Unknown [id number] 2.16.84 0.1.722118.3.579.2.593 1990 Unknown [id number] 2.16.84 0.1.498859.3.579.2.593 1990 Unknown [id number] 2.16.84 0.1.065885.3.579.2.593 1990 Unknown [id number] 2.16.84 0.1.546740.3.579.2.593 1990 Unknown [id number] 2.16.84 0.1.950268.3.579.2.593 1990 Unknown [id number] 2.16.84 0.1.709679.3.579.2.593 1990 Unknown [id number] 2.16.84 0.1.213821.3.579.2.593 1990 Unknown [id number] 2.16.84 0.1.801935.3.579.2.593 1990 Unknown [id number] 2.16.84 0.1.775236.3.579.2.593 1990 Unknown [id number] 2.16.84 0.1.223273.3.579.2.593 1990 Unknown [id number] 2.16.84 0.1.563804.3.579.2.1258 1990 Unknown [id number] 2.16.84 0.1.522648.3.579.2.9 1990 Unknown [id number] 2.16.84 0.1.032409.3.579.2.1258 1990 Unknown [id number] 2.16.84 0.1.725867.3.579.2.1258 1990 Unknown [id number] 2.16.84 0.1.412229.3.579.2.1258 1990 Unknown [id number] 2.16.84 0.1.650016.3.579.2.1258 1990 Unknown [id number] 2.16.84 0.1.378322.3.579.2.1258 1990 Unknown [id number] 2.16.84 0.1.957686.3.579.2.1258 1990 Unknown [id number] 2.16.84 0.1.965721.3.579.2.1258 1990 Unknown [id number] 2.16.84 0.1.446709.3.579.2.1258 1990 Unknown [id number] 2.16.84 0.1.920127.3.579.2.1258 1990 Unknown [id number] 2.16.84 0.1.792880.3.579.2.1258 1990 Unknown [id number] 2.16.840 .1.343744.3.579.2.1258 1959 Private Health Insurance [id number] Private Health Insurance [id number] Social History Date Type Detail Facility Start: 03-17-2023 End: 04-29-2023 Sex Assigned At [facility] Other Start: 03-17-2023 Tobacco smoking status NHIS Never smoked tobacco [facility] Start: 03-17-2023 End: 05-20-2023 Tobacco use and exposure Smokeless tobacco non-user [facility] Start: 03-17-2023 End: 02-03-2024 Alcohol intake Lifetime non-drinker (finding) [facility] Start: 03-17-2023 End: 04-29-2023 History of Social function [facility] Start: 03-17-2023 Alcohol Comment caffiene- 1 cup coff ee [facility] Start: 1990 Sex Assigned At Not on file [facility] Start: 05-20-2023 Tobacco smoking status MAIS Ex-smoker [facility] History of tobacco use Current smoker [facility] History of tobacco use Cigarette Smoker [facility] Start: 07-17-2023 [facility] Clinical Notes 12-07-2020 to 03-10-2024 Cammie Lombardi LPN - 03/10/2024 11:40 AM Cesar Lombardi LPN - 02/24/2024 1:00 PM KEKE Shankar - 02/03/2024 1:20 PM KEKE Shankar - 01/20/2024 1:30 PM KEKE Shankar - 12/09/2023 11:20 AM EDT Note Date & Type Note Facility 03-10-2024 History of Presen t illness Narrative Reason for Appointment: Patient ID: Homa Sanz is a 33 y.o. female who presents for Routine Visit Patient presents today for Return OB appointment. MEDICATIONS Current Outpatient Medications Medication Instructions MV-Min-Fe Fum-FA-DHA ( 1 PO) 1 each, Daily ALLERGIES Allergies Allergen Reactions Azstarys [Serdexmethylphen-Dexmethylphen] Itching Banana (Diagnostic) Unknown Cat Hair Extract PROBLEMS Active Ambulatory Problems Diagnosis Date Noted Third trimester 03/10/2024 35 weeks gestation of 03/10/2024 Resolved Ambulatory Problems Diagnosis Date Noted No Resolved Ambulatory Problems Past Medical History: Diagnosis Date ADHD (attention deficit hyperactivity disorder) ([facility]) Anxiety Former smoker H/O wrist surgery History of loop electrical excision procedure (LEEP) History of migraine headaches PTSD (post-traumatic stress disorder) ([facility]) Scoliosis Shingles HISTORY PAST MEDICAL HISTORY SOCIAL HISTORY Past Medical History: Diagnosis Date ADHD (attention deficit hyperactivity disorder) ([facility]) Anxiety Former smoker H/O wrist surgery History of loop electrical excision procedure (LEEP) History of migraine headaches PTSD (post-traumatic stress disorder) ([facility]) Scoliosis Shingles Social History Tobacco Use Smoking status: Former Types: Cigarettes Smokeless tobacco: Never Vaping Use Vaping status: Never Used Substance Use Topics Alcohol use: Never Comment: caffiene- 1 cup coffee Drug use: Never FAMILY HISTORY Family History Problem Relation Name Age of Onset Alcohol abuse Father Addiction problem Father illicit drug use Hepatitis Father Arthritis Maternal Grandmother Arthritis Maternal Grandfather Hypertension Maternal Grandfather Hyperlipidemia Maternal Grandfather Hyperlipidemia Paternal Grandmother Hypertension Paternal Grandmother Mental illness Paternal Grandmother Alzheimer's disease Paternal Grandmother Arthritis Paternal Grandmother Stroke Paternal Grandfather Alcohol abuse Paternal Grandfather Other (Status asthmaticus) Paternal Grandfather Hypertension Paternal Grandfather Hyperlipidemia Paternal Grandfather SURGICAL HISTORY Past Surgical History: Procedure Laterality Date CERVICAL BIOPSY W/ LOOP ELECTRODE EXCISION 2018 Cancer of Uterus removed ORIF WRIST FRACTURE Left 10/2020 WISDOM TOOTH EXTRACTION 2016 Draper teeth REVIEW OF SYSTEMS Review of Systems: Review of Systems Constitutional: Negative. HENT: Negative. Eyes: Negative. Respiratory: Negative. Cardiovascular: Negative. Gastrointestinal: Negative. Genitourinary: Negative. Musculoskeletal: Negative. Skin: Negative. Neurological: Negative. All other systems reviewed and are negative. Hematological: Negative. Endocrine: Negative. Allergic/Immunologic: Negative. OBJECTIVE Objective: Physical Exam Constitutional: Appearance: Normal appearance. She is well-developed. Genitourinary: Vulva normal. Cardiovascular: Rate and Rhythm: Normal rate and regular rhythm. Pulmonary: Effort: Pulmonary effort is normal. Breath sounds: Normal breath sounds. Abdominal: General: Bowel sounds are normal. There is no distension. Palpations: Abdomen is soft. Tenderness: There is no abdominal tenderness. There is no guarding or rebound. Musculoskeletal: General: No swelling. Normal range of motion. Right lower leg: No edema. Left lower leg: No edema. Neurological: Mental Status: She is alert and oriented to person, place, and time. Skin: General: Skin is warm and dry. Psychiatric: Mood and Affect: Mood normal. Behavior: Behavior normal. Vitals and nursing note reviewed. Exam conducted with a grape pruner present. Vitals: Estimated body mass index is 34.52 kg/m as calculated from the following: Height as of 07/01/22: 5' 4 . Weight as of this encounter: 201 lb 1.9 oz. BP: 110/74 No LMP recorded. Patient is . ASSESSMENT & PLAN ICD-10-CM 1. Third trimester Z34.93 POCT urinalysis dipstick manually resulted CULTURE, GROUP B STREP WITH SUSCEPTIBLITY 2. 35 weeks gestation of Z3A.35 POCT urinalysis dipstick manually resulted CULTURE, GROUP B STREP WITH SUSCEPTIBLITY Patient is doing well but has complaints of being tired and having maternal discomfort due to . Patient verbalized frequent movement and was instructed to perform kick counts three times per day. labor precautions were given, LARC consent was signed/declined, and GBS was obtained. Cervical check was performed and patient is 0cm dilated. Orders Placed This Encounter Procedures CULTURE, GROUP B STREP WITH SUSCEPTIBLITY POCT urinalysis dipstick manually resulted Follow Up: Patient is to return to office in 1 week for routine OB appointment Documented by Cammie Lombardi LPN on behalf of: Ivania Patel DO documented in this encounter [facility] 02-24-2024 History of Presen t illness Narrative Reason for Appointment: Patient ID: Homa Sanz is a 33 y.o. female who presents for Routine Visit Patient presents today for Return OB appointment. MEDICATIONS Current Outpatient Medications Medication Instructions MV-Min-Fe Fum-FA-DHA ( 1 PO) 1 each, Daily ALLERGIES Allergies Allergen Reactions Azstarys [Serdexmethylphen-Dexmethylphen] Itching Banana (Diagnostic) Unknown Cat Hair Extract PROBLEMS Active Ambulatory Problems Diagnosis Date Noted No Active Ambulatory Problems Resolved Ambulatory Problems Diagnosis Date Noted No Resolved Ambulatory Problems Past Medical History: Diagnosis Date ADHD (attention deficit hyperactivity disorder) ([facility]) Anxiety Former smoker H/O wrist surgery History of loop electrical excision procedure (LEEP) History of migraine headaches PTSD (post-traumatic stress disorder) ([facility]) Scoliosis Shingles HISTORY PAST MEDICAL HISTORY SOCIAL HISTORY Past Medical History: Diagnosis Date ADHD (attention deficit hyperactivity disorder) ([facility]) Anxiety Former smoker H/O wrist surgery History of loop electrical excision procedure (LEEP) History of migraine headaches PTSD (post-traumatic stress disorder) ([facility]) Scoliosis Shingles Social History Tobacco Use Smoking status: Former Types: Cigarettes Smokeless tobacco: Never Vaping Use Vaping status: Never Used Substance Use Topics Alcohol use: Never Comment: caffiene- 1 cup coffee Drug use: Never FAMILY HISTORY Family History Problem Relation Name Age of Onset Alcohol abuse Father Addiction problem Father illicit drug use Hepatitis Father Arthritis Maternal Grandmother Arthritis Maternal Grandfather Hypertension Maternal Grandfather Hyperlipidemia Maternal Grandfather Hyperlipidemia Paternal Grandmother Hypertension Paternal Grandmother Mental illness Paternal Grandmother Alzheimer's disease Paternal Grandmother Arthritis Paternal Grandmother Stroke Paternal Grandfather Alcohol abuse Paternal Grandfather Other (Status asthmaticus) Paternal Grandfather Hypertension Paternal Grandfather Hyperlipidemia Paternal Grandfather SURGICAL HISTORY Past Surgical History: Procedure Laterality Date CERVICAL BIOPSY W/ LOOP ELECTRODE EXCISION 2018 Cancer of Uterus removed ORIF WRIST FRACTURE Left 10/2020 WISDOM TOOTH EXTRACTION 2016 Dra[place] teeth REVIEW OF SYSTEMS Review of Systems: Review of Systems Constitutional: Negative. HENT: Negative. Eyes: Negative. Respiratory: Negative. Cardiovascular: Negative. Gastrointestinal: Negative. Genitourinary: Negative. Musculoskeletal: Negative. Skin: Negative. Neurological: Negative. All other systems reviewed and are negative. Hematological: Negative. Endocrine: Negative. Allergic/Immunologic: Negative. OBJECTIVE Objective: Physical Exam Constitutional: Appearance: Normal appearance. She is well-developed. Cardiovascular: Rate and Rhythm: Normal rate and regular rhythm. Pulmonary: Effort: Pulmonary effort is normal. Breath sounds: Normal breath sounds. Abdominal: General: Bowel sounds are normal. There is no distension. Palpations: Abdomen is soft. Tenderness: There is no abdominal tenderness. There is no guarding or rebound. Musculoskeletal: General: No swelling. Normal range of motion. Right lower leg: No edema. Left lower leg: No edema. Neurological: Mental Status: She is alert and oriented to person, place, and time. Skin: General: Skin is warm and dry. Psychiatric: Mood and Affect: Mood normal. Behavior: Behavior normal. Vitals and nursing note reviewed. Exam conducted with a grape pruner present. Vitals: Estimated body mass index is 34.16 kg/m as calculated from the following: Height as of 07/01/22: 5' 4 . Weight as of this encounter: 199 lb. BP: 118/70 No LMP recorded. Patient is . ASSESSMENT & PLAN ICD-10-CM 1. Third trimester Z34.93 POCT urinalysis dipstick manually resulted 2. 33 weeks gestation of Z3A.33 Return OB: Patient presents today for a routine obstetrics appointment. Patient is currently 33w5d . Patient states she is doing well but has complaints of being tired due to current . Patient has verbalizes frequent movement. labor precautions was discussed/given and patient was instructed to perform kick counts three times a day. Pt measuring ahead given growth ultrasound order. Orders Placed This Encounter Procedures POCT urinalysis dipstick manually resulted Follow Up: Patient is to return to office in 2 week for routine OB appointment. Documented by Cammie Lombardi LPN on behalf of: Ivania Patel DO documented in this encounter [facility] 02-03-2024 History of Presen t illness Narrative Reason for Appointment: Patient ID: Homa Sanz is a 33 y.o. female who presents for Routine Visit Patient presents today for Return OB appointment. MEDICATIONS Current Outpatient Medications Medication Instructions MV-Min-Fe Fum-FA-DHA ( 1 PO) 1 each, Daily ALLERGIES Allergies Allergen Reactions Azstarys [Serdexmethylphen-Dexmethylphen] Itching Banana (Diagnostic) Unknown Cat Hair Extract PROBLEMS Active Ambulatory Problems Diagnosis Date Noted No Active Ambulatory Problems Resolved Ambulatory Problems Diagnosis Date Noted No Resolved Ambulatory Problems Past Medical History: Diagnosis Date ADHD (attention deficit hyperactivity disorder) ([facility]) Anxiety Former smoker H/O wrist surgery History of loop electrical excision procedure (LEEP) History of migraine headaches PTSD (post-traumatic stress disorder) ([facility]) Scoliosis Shingles HISTORY PAST MEDICAL HISTORY SOCIAL HISTORY Past Medical History: Diagnosis Date ADHD (attention deficit hyperactivity disorder) ([facility]) Anxiety Former smoker H/O wrist surgery History of loop electrical excision procedure (LEEP) History of migraine headaches PTSD (post-traumatic stress disorder) ([facility]) Scoliosis Shingles Social History Tobacco Use Smoking status: Former Types: Cigarettes Smokeless tobacco: Never Vaping Use Vaping status: Never Used Substance Use Topics Alcohol use: Never Comment: caffiene- 1 cup coffee Drug use: Never FAMILY HISTORY Family History Problem Relation Name Age of Onset Alcohol abuse Father Addiction problem Father illicit drug use Hepatitis Father Arthritis Maternal Grandmother Arthritis Maternal Grandfather Hypertension Maternal Grandfather Hyperlipidemia Maternal Grandfather Hyperlipidemia Paternal Grandmother Hypertension Paternal Grandmother Mental illness Paternal Grandmother Alzheimer's disease Paternal Grandmother Arthritis Paternal Grandmother Stroke Paternal Grandfather Alcohol abuse Paternal Grandfather Other (Status asthmaticus) Paternal Grandfather Hypertension Paternal Grandfather Hyperlipidemia Paternal Grandfather SURGICAL HISTORY Past Surgical History: Procedure Laterality Date CERVICAL BIOPSY W/ LOOP ELECTRODE EXCISION 2018 Cancer of Uterus removed ORIF WRIST FRACTURE Left 10/2020 WISDOM TOOTH EXTRACTION 2016 Dra[place] teeth REVIEW OF SYSTEMS Review of Systems: Review of Systems Constitutional: Negative. HENT: Negative. Eyes: Negative. Respiratory: Negative. Cardiovascular: Negative. Gastrointestinal: Negative. Genitourinary: Negative. Musculoskeletal: Negative. Skin: Negative. Neurological: Negative. All other systems reviewed and are negative. Hematological: Negative. Endocrine: Negative. Allergic/Immunologic: Negative. OBJECTIVE Objective: Physical Exam Constitutional: Appearance: Normal appearance. She is normal weight. HENT: Head: Normocephalic. Cardiovascular: Rate and Rhythm: Normal rate. Pulses: Normal pulses. Pulmonary: Effort: Pulmonary effort is normal. Breath sounds: Normal breath sounds. Abdominal: Palpations: Abdomen is soft. Musculoskeletal: General: Normal range of motion. Neurological: General: No focal deficit present. Mental Status: She is alert and oriented to person, place, and time. Psychiatric: Mood and Affect: Mood normal. Behavior: Behavior normal. Thought Content: Thought content normal. Judgment: Judgment normal. Vitals and nursing note reviewed. Vitals: Estimated body mass index is 32.46 kg/m as calculated from the following: Height as of 07/01/22: 5' 4 . Weight as of 01/20/24: 189 lb 1.9 oz. BP: 110/66 No LMP recorded. Patient is . ASSESSMENT & PLAN ICD-10-CM 1. Third trimester Z34.93 POCT urinalysis dipstick manually resulted 2. 30 weeks gestation of Z3A.30 POCT urinalysis dipstick manually resulted Return OB: Patient presents today for a routine obstetrics appointment. Patient is currently 30w5d . Patient states she is doing well but has complaints of being tired due to current . Patient has verbalizes frequent movement. labor precautions was discussed/given and patient was instructed to perform kick counts three times a day. Orders Placed This Encounter Procedures POCT urinalysis dipstick manually resulted Follow Up: Patient is to return to office in 2 week for routine OB appointment. Documented by KEKE Xiong on behalf of: KEKE Xiong documented in this encounter [facility] 01-20-2024 History of Presen t illness Narrative Reason for Appointment: Patient ID: Homa Sanz is a 33 y.o. female who presents for Routine Visit Patient presents today for Return OB appointment. MEDICATIONS Current Outpatient Medications Medication Instructions MV-Min-Fe Fum-FA-DHA ( 1 PO) 1 each, Daily ALLERGIES Allergies Allergen Reactions Azstarys [Serdexmethylphen-Dexmethylphen] Itching Banana (Diagnostic) Unknown Cat Hair Extract Octacosanol Unknown PROBLEMS Active Ambulatory Problems Diagnosis Date Noted No Active Ambulatory Problems Resolved Ambulatory Problems Diagnosis Date Noted No Resolved Ambulatory Problems Past Medical History: Diagnosis Date ADHD (attention deficit hyperactivity disorder) ([facility]) Anxiety Former smoker H/O wrist surgery History of loop electrical excision procedure (LEEP) History of migraine headaches PTSD (post-traumatic stress disorder) ([facility]) Scoliosis Shingles HISTORY PAST MEDICAL HISTORY SOCIAL HISTORY Past Medical History: Diagnosis Date ADHD (attention deficit hyperactivity disorder) ([facility]) Anxiety Former smoker H/O wrist surgery History of loop electrical excision procedure (LEEP) History of migraine headaches PTSD (post-traumatic stress disorder) ([facility]) Scoliosis Shingles Social History Tobacco Use Smoking status: Former Types: Cigarettes Smokeless tobacco: Never Vaping Use Vaping status: Never Used Substance Use Topics Alcohol use: Never Comment: caffiene- 1 cup coffee Drug use: Never FAMILY HISTORY Family History Problem Relation Name Age of Onset Alcohol abuse Father Addiction problem Father illicit drug use Hepatitis Father Arthritis Maternal Grandmother Arthritis Maternal Grandfather Hypertension Maternal Grandfather Hyperlipidemia Maternal Grandfather Hyperlipidemia Paternal Grandmother Hypertension Paternal Grandmother Mental illness Paternal Grandmother Alzheimer's disease Paternal Grandmother Arthritis Paternal Grandmother Stroke Paternal Grandfather Alcohol abuse Paternal Grandfather Other (Status asthmaticus) Paternal Grandfather Hypertension Paternal Grandfather Hyperlipidemia Paternal Grandfather SURGICAL HISTORY Past Surgical History: Procedure Laterality Date CERVICAL BIOPSY W/ LOOP ELECTRODE EXCISION 2018 Cancer of Uterus removed ORIF WRIST FRACTURE Left 10/2020 WISDOM TOOTH EXTRACTION 2016 [place] teeth REVIEW OF SYSTEMS Review of Systems: Review of Systems Constitutional: Negative. HENT: Negative. Eyes: Negative. Respiratory: Negative. Cardiovascular: Negative. Gastrointestinal: Negative. Genitourinary: Negative. Musculoskeletal: Negative. Skin: Negative. Neurological: Negative. All other systems reviewed and are negative. Hematological: Negative. Endocrine: Negative. Allergic/Immunologic: Negative. OBJECTIVE Objective: Physical Exam Constitutional: Appearance: Normal appearance. She is normal weight. HENT: Head: Normocephalic. Cardiovascular: Rate and Rhythm: Normal rate. Pulses: Normal pulses. Pulmonary: Effort: Pulmonary effort is normal. Breath sounds: Normal breath sounds. Abdominal: Palpations: Abdomen is soft. Musculoskeletal: General: Normal range of motion. Neurological: General: No focal deficit present. Mental Status: She is alert and oriented to person, place, and time. Psychiatric: Mood and Affect: Mood normal. Behavior: Behavior normal. Thought Content: Thought content normal. Judgment: Judgment normal. Vitals and nursing note reviewed. Vitals: Estimated body mass index is 32.46 kg/m as calculated from the following: Height as of 07/01/22: 5' 4 . Weight as of this encounter: 189 lb 1.9 oz. BP: 110/60 No LMP recorded. Patient is . ASSESSMENT & PLAN ICD-10-CM 1. 28 weeks gestation of Z3A.28 POCT urinalysis dipstick manually resulted 2. Third trimester Z34.93 POCT urinalysis dipstick manually resulted Return OB: Patient presents today for a routine obstetrics appointment. Patient is currently 28w5d . Patient states she is doing well but has complaints of being tired due to current . Patient has verbalizes frequent movement. labor precautions was discussed/given and patient was instructed to perform kick counts three times a day. Orders Placed This Encounter Procedures POCT urinalysis dipstick manually resulted Follow Up: Patient is to return to office in 2 week for routine OB appointment. Documented by KEKE Xiong on behalf of: KEKE Xiong documented in this encounter [facility] 01-06-2024 History of Presen t illness Narrative Reason for Appointment: Patient ID: Homa Sanz is a 33 y.o. female who presents for Routine Visit Patient presents today for Return OB appointment. MEDICATIONS Current Outpatient Medications Medication Instructions MV-Min-Fe Fum-FA-DHA ( 1 PO) 1 each, Oral, Daily ALLERGIES Allergies Allergen Reactions Azstarys [Serdexmethylphen-Dexmethylphen] Itching Banana (Diagnostic) Unknown Cat Hair Extract Octacosanol Unknown PROBLEMS Active Ambulatory Problems Diagnosis Date Noted No Active Ambulatory Problems Resolved Ambulatory Problems Diagnosis Date Noted No Resolved Ambulatory Problems Past Medical History: Diagnosis Date ADHD (attention deficit hyperactivity disorder) ([facility]) Anxiety Former smoker H/O wrist surgery History of loop electrical excision procedure (LEEP) History of migraine headaches PTSD (post-traumatic stress disorder) (CMS/HCC) Scoliosis Shingles HISTORY PAST MEDICAL HISTORY SOCIAL HISTORY Past Medical History: Diagnosis Date ADHD (attention deficit hyperactivity disorder) (CMS/HCC) Anxiety Former smoker H/O wrist surgery History of loop electrical excision procedure (LEEP) History of migraine headaches PTSD (post-traumatic stress disorder) (CMS/HCC) Scoliosis Shingles Social History Tobacco Use Smoking status: Former Types: Cigarettes Smokeless tobacco: Never Vaping Use Vaping status: Never Used Substance Use Topics Alcohol use: Never Comment: caffiene- 1 cup coffee Drug use: Never FAMILY HISTORY Family History Problem Relation Name Age of Onset Alcohol abuse Father Addiction problem Father illicit drug use Hepatitis Father Arthritis Maternal Grandmother Arthritis Maternal Grandfather Hypertension Maternal Grandfather Hyperlipidemia Maternal Grandfather Hyperlipidemia Paternal Grandmother Hypertension Paternal Grandmother Mental illness Paternal Grandmother Alzheimer's disease Paternal Grandmother Arthritis Paternal Grandmother Stroke Paternal Grandfather Alcohol abuse Paternal Grandfather Other (Status asthmaticus) Paternal Grandfather Hypertension Paternal Grandfather Hyperlipidemia Paternal Grandfather SURGICAL HISTORY Past Surgical History: Procedure Laterality Date CERVICAL BIOPSY W/ LOOP ELECTRODE EXCISION 2018 Cancer of Uterus removed ORIF WRIST FRACTURE Left 10/2020 WISDOM TOOTH EXTRACTION 2016 [place] teeth REVIEW OF SYSTEMS Review of Systems: Review of Systems Constitutional: Negative. HENT: Negative. Eyes: Negative. Respiratory: Negative. Cardiovascular: Negative. Gastrointestinal: Negative. Genitourinary: Negative. Musculoskeletal: Negative. Skin: Negative. Neurological: Negative. All other systems reviewed and are negative. Hematological: Negative. Endocrine: Negative. Allergic/Immunologic: Negative. OBJECTIVE Objective: Physical Exam Constitutional: Appearance: Normal appearance. She is well-developed. Cardiovascular: Rate and Rhythm: Normal rate and regular rhythm. Pulmonary: Effort: Pulmonary effort is normal. Breath sounds: Normal breath sounds. Abdominal: General: Bowel sounds are normal. There is no distension. Palpations: Abdomen is soft. Tenderness: There is no abdominal tenderness. There is no guarding or rebound. Musculoskeletal: General: No swelling. Normal range of motion. Right lower leg: No edema. Left lower leg: No edema. Neurological: Mental Status: She is alert and oriented to person, place, and time. Skin: General: Skin is warm and dry. Psychiatric: Mood and Affect: Mood normal. Behavior: Behavior normal. Vitals and nursing note reviewed. Exam conducted with a grape pruner present. Vitals: Estimated body mass index is 31.76 kg/m as calculated from the following: Height as of 07/01/22: 5' 4 . Weight as of this encounter: 185 lb. BP: 108/64 No LMP recorded. Patient is . ASSESSMENT & PLAN ICD-10-CM 1. Second trimester Z34.92 POCT urinalysis dipstick manually resulted 2. 26 weeks gestation of Z3A.26 POCT urinalysis dipstick manually resulted 3. Diabetes mellitus screening Z13.1 CBC Glucose tolerance, 1 hour Return OB: Patient presents today for a routine obstetrics appointment. Patient is currently 26w5d . Patient states she is doing well but has complaints of being tired due to current . Patient has verbalizes frequent movement. labor precautions was discussed/given and patient was instructed to perform kick counts three times a day. Pt given glucola and cbc orders Orders Placed This Encounter Procedures CBC Glucose tolerance, 1 hour POCT urinalysis dipstick manually resulted Follow Up: Patient is to return to office in 2 week for routine OB appointment. Documented by Cammie Lombardi LPN on behalf of: Ivania Patel DO documented in this encounter [facility] 12-09-2023 History of Presen t illness Narrative Reason for Appointment: Patient ID: Homa Sanz is a 33 y.o. female who presents for Routine Visit Patient presents today for Return OB appointment. MEDICATIONS Current Outpatient Medications Medication Instructions MV-Min-Fe Fum-FA-DHA ( 1 PO) 1 each, Oral, Daily ALLERGIES Allergies Allergen Reactions Azstarys [Serdexmethylphen-Dexmethylphen] Itching Banana (Diagnostic) Unknown Cat Hair Extract Octacosanol Unknown PROBLEMS Active Ambulatory Problems Diagnosis Date Noted No Active Ambulatory Problems Resolved Ambulatory Problems Diagnosis Date Noted No Resolved Ambulatory Problems Past Medical History: Diagnosis Date ADHD (attention deficit hyperactivity disorder) (CMS/HCC) Anxiety Former smoker H/O wrist surgery History of loop electrical excision procedure (LEEP) History of migraine headaches PTSD (post-traumatic stress disorder) (CMS/HCC) Scoliosis Shingles HISTORY PAST MEDICAL HISTORY SOCIAL HISTORY Past Medical History: Diagnosis Date ADHD (attention deficit hyperactivity disorder) (CMS/HCC) Anxiety Former smoker H/O wrist surgery History of loop electrical excision procedure (LEEP) History of migraine headaches PTSD (post-traumatic stress disorder) (CMS/HCC) Scoliosis Shingles Social History Tobacco Use Smoking status: Former Types: Cigarettes Smokeless tobacco: Never Vaping Use Vaping status: Never Used Substance Use Topics Alcohol use: Never Comment: caffiene- 1 cup coffee Drug use: Never FAMILY HISTORY Family History Problem Relation Name Age of Onset Alcohol abuse Father Addiction problem Father illicit drug use Hepatitis Father Arthritis Maternal Grandmother Arthritis Maternal Grandfather Hypertension Maternal Grandfather Hyperlipidemia Maternal Grandfather Hyperlipidemia Paternal Grandmother Hypertension Paternal Grandmother Mental illness Paternal Grandmother Alzheimer's disease Paternal Grandmother Arthritis Paternal Grandmother Stroke Paternal Grandfather Alcohol abuse Paternal Grandfather Other (Status asthmaticus) Paternal Grandfather Hypertension Paternal Grandfather Hyperlipidemia Paternal Grandfather SURGICAL HISTORY Past Surgical History: Procedure Laterality Date CERVICAL BIOPSY W/ LOOP ELECTRODE EXCISION 2018 Cancer of Uterus removed ORIF WRIST FRACTURE Left 10/2020 WISDOM TOOTH EXTRACTION 2016 [place] teeth REVIEW OF SYSTEMS Review of Systems: Review of Systems Constitutional: Negative. HENT: Negative. Eyes: Negative. Respiratory: Negative. Cardiovascular: Negative. Gastrointestinal: Negative. Genitourinary: Negative. Musculoskeletal: Negative. Skin: Negative. Neurological: Negative. All other systems reviewed and are negative. Hematological: Negative. Endocrine: Negative. Allergic/Immunologic: Negative. OBJECTIVE Objective: Physical Exam Constitutional: Appearance: Normal appearance. Genitourinary: Right Adnexa: not tender and no mass present. Left Adnexa: not tender and no mass present. No cervical discharge. Breasts: Breasts are soft. Right: Normal. Left: Normal. HENT: Head: Normocephalic. Nose: Nose normal. Mouth/Throat: Mouth: Mucous membranes are moist. Cardiovascular: Rate and Rhythm: Normal rate. Pulmonary: Effort: Pulmonary effort is normal. Abdominal: General: Bowel sounds are normal. Palpations: Abdomen is soft. Musculoskeletal: General: Normal range of motion. Cervical back: Normal range of motion. Neurological: General: No focal deficit present. Mental Status: She is alert. Skin: General: Skin is warm and dry. Psychiatric: Mood and Affect: Mood normal. Vitals and nursing note reviewed. Exam conducted with a grape pruner present. Vitals: Estimated body mass index is 30.21 kg/m as calculated from the following: Height as of 23: 5' 4 . Weight as of this encounter: 176 lb. BP: 102/62 No LMP recorded. Patient is . ASSESSMENT & PLAN ICD-10-CM 1. Second trimester Z34.92 POCT urinalysis dipstick manually resulted Return OB: Patient presents today for a routine obstetrics appointment. Patient is currently 22w5d . Patient states she is doing well but has complaints of being tired due to current . Patient has verbalizes frequent movement. Orders Placed This Encounter Procedures POCT urinalysis dipstick manually resulted Follow Up: Patient is to return to office in4 week for routine OB appointment. Documented by KEKE Xiong on behalf of: KEKE Xiong documented in this encounter [facility] 11-09-2023 History of Presen t illness Narrative Reason for Appointment: Patient ID: Homa Sanz is a 33 y.o. female who presents for Routine Visit, Well Women Visit, and STI Screening Patient presents today for Annual Exam. and Return OB appointment. MEDICATIONS Current Outpatient Medications Medication Instructions magnesium oxide (MAG-OX) 400 mg, Oral, Daily MV-Min-Fe Fum-FA-DHA ( 1 PO) 1 each, Oral, Daily ALLERGIES Allergies Allergen Reactions Azstarys [Serdexmethylphen-Dexmethylphen] Itching Banana (Diagnostic) Unknown Cat Hair Extract Octacosanol Unknown PROBLEMS Active Ambulatory Problems Diagnosis Date Noted No Active Ambulatory Problems Resolved Ambulatory Problems Diagnosis Date Noted No Resolved Ambulatory Problems Past Medical History: Diagnosis Date ADHD (attention deficit hyperactivity disorder) (CMS/HCC) Anxiety Former smoker H/O wrist surgery History of loop electrical excision procedure (LEEP) History of migraine headaches PTSD (post-traumatic stress disorder) (CMS/HCC) Scoliosis Shingles HISTORY PAST MEDICAL HISTORY SOCIAL HISTORY Past Medical History: Diagnosis Date ADHD (attention deficit hyperactivity disorder) (CMS/HCC) Anxiety Former smoker H/O wrist surgery History of loop electrical excision procedure (LEEP) History of migraine headaches PTSD (post-traumatic stress disorder) (CMS/[facility]) Scoliosis Shingles Social History Tobacco Use Smoking status: Former Types: Cigarettes Smokeless tobacco: Never Vaping Use Vaping status: Never Used Substance Use Topics Alcohol use: Never Comment: caffiene- 1 cup coffee Drug use: Never FAMILY HISTORY Family History Problem Relation Name Age of Onset Alcohol abuse Father Addiction problem Father illicit drug use Hepatitis Father Arthritis Maternal Grandmother Arthritis Maternal Grandfather Hypertension Maternal Grandfather Hyperlipidemia Maternal Grandfather Hyperlipidemia Paternal Grandmother Hypertension Paternal Grandmother Mental illness Paternal Grandmother Alzheimer's disease Paternal Grandmother Arthritis Paternal Grandmother Stroke Paternal Grandfather Alcohol abuse Paternal Grandfather Other (Status asthmaticus) Paternal Grandfather Hypertension Paternal Grandfather Hyperlipidemia Paternal Grandfather SURGICAL HISTORY Past Surgical History: Procedure Laterality Date CERVICAL BIOPSY W/ LOOP ELECTRODE EXCISION 2018 Cancer of Uterus removed ORIF WRIST FRACTURE Left 10/2020 WISDOM TOOTH EXTRACTION 2016 [place] teeth REVIEW OF SYSTEMS Review of Systems: Review of Systems All other systems reviewed and are negative. OBJECTIVE Objective: Physical Exam Constitutional: Appearance: Normal appearance. She is well-developed. Genitourinary: Vulva normal. Breasts: Breasts are soft. Right: Normal. Left: Normal. Cardiovascular: Rate and Rhythm: Normal rate and regular rhythm. Pulmonary: Effort: Pulmonary effort is normal. Breath sounds: Normal breath sounds. Abdominal: General: Bowel sounds are normal. There is no distension. Palpations: Abdomen is soft. Tenderness: There is no abdominal tenderness. There is no guarding or rebound. Musculoskeletal: General: No swelling. Normal range of motion. Right lower leg: No edema. Left lower leg: No edema. Neurological: Mental Status: She is alert and oriented to person, place, and time. Skin: General: Skin is warm and dry. Psychiatric: Mood and Affect: Mood normal. Behavior: Behavior normal. Vitals and nursing note reviewed. Exam conducted with a grape pruner present. Vitals: Estimated body mass index is 28.8 kg/m as calculated from the following: Height as of 07/01/22: 5' 4 . Weight as of this encounter: 167 lb 12.8 oz. BP: 100/58 No LMP recorded. Patient is . ASSESSMENT & PLAN ICD-10-CM 1. 18 weeks gestation of Z3A.18 POCT urinalysis dipstick manually resulted Alpha fetoprotein, maternal Alpha fetoprotein, maternal 2. Screening, , for anatomic survey Z36.89 US OB ANATOMY SINGLE W US OB CERVICAL LENGTH 3. Well woman exam with routine gynecological exam Z01.419 Pap Smear HPV DNA probe, amplified 4. Exposure to STD Z20.2 CHLAMYDIA TRACHOMATIS (GENITO/STI) Neisseria gonorrhea DNA probe, direct 5. Vaginal discharge N89.8 SURESWAB(R) ADVANCED VAGINITIS PLUS, TMA Return OB/Annual Exam: Patient presents today for an annual exam/routine obstetrics appointment. Patient is currently 18w3d . Patient is doing well and states she has no complaints. Pap/cultures was obtained without difficulty and patient was given [facility] order to have obtained. Discussed patient taking a daily Aspirin 81mg daily to help with placental health. At this time patient does not desire to take anything extra at this time in the . Patient is currently still and is currently weaning off as supply is decreasing. Orders Placed This Encounter Procedures HPV DNA probe, amplified US OB ANATOMY SINGLE W US OB CERVICAL LENGTH Alpha fetoprotein, maternal CHLAMYDIA TRACHOMATIS (GENITO/STI) Neisseria gonorrhea DNA probe, direct POCT urinalysis dipstick manually resulted Discussed labor/delivery and what to expect throughout . Patient does not desire IOL at end of and would like to setup a date near 41 weeks gestation. Follow Up: Patient is to return to our office in 4 weeks for routine OB appointment Documented by Radha Yeager LPN on behalf of: Ivania Patel DO documented in this encounter [facility] 04-29-2023 History of Presen t illness Narrative Images from the original note were not included. BAEHoma : 1990 (31 yo F) History of [...] Medical problems since last visit. Working at [employer] and its better working there. Stressors [...] per day of coffee. Education: Masters program online-[employer]. Children: 4year old father sees child qother weekend. Legal problems: none age 17 -curfew violation-Probation violation -in residential -5 days. Living with: Boyfriend. 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 Pets: dog-[place]. no Sexually active. no Verbal [...] with a meds. documented in this encounter [facility] 12-07-2020 Evaluation note Encounter Date Diagnosis Assessment [...] Other specified postprocedural states (ICD-10 - Z98.890) [employer] Other Evaluation note* Diagnosis Anxiety Anxiety state, unspecified Attention deficit hyperactivity disorder (ADHD), predominantly inattentive type (CMS/HCC) [facility] Diagnosis Second trimester state, incidental 26 weeks gestation of Diabetes mellitus screening Screening for diabetes mellitus [facility] Diagnosis 28 weeks gestation of Third trimester state, incidental [facility] Diagnosis Third trimester state, incidental 30 weeks gestation of [facility] Diagnosis Third trimester state, incidental 33 weeks gestation of Excessive growth affecting management of , antepartum, single or unspecified fetus [facility] Diagnosis 18 weeks gestation of Screening, , for anatomic survey Encounter for anatomic survey Well woman exam with routine gynecological exam Routine gynecological examination Exposure to STD Vaginal discharge Leukorrhea, not specified as infective [facility] Diagnosis Second trimester state, incidental [facility] Diagnosis Third trimester state, incidental 35 weeks gestation of [facility] Narrative - Reported* Type Description Date Surgical History tonsillectomy Surgical History leap Surgical History bbl [employer] Other Summary Purpose Family History No Family History Records FoundNo Family History Records FoundNo Family History Records Found Advance Directives No Advanced Directives Records FoundNo Advanced Directives Records FoundNo Advanced Directives Records Found Additional Source Comments INFORMATION SOURCE (unrecogn ized section and content) DATE CREATED AUTHOR 04/07/2021 [facility] DATE CREATED AUTHOR AUTHOR'S ORGANIZ ATION 05/28/2022 [facility] DATE CREATED AUTHOR AUTHOR'S ORGANIZ ATION 02/27/2024 [facility] EPIC REASON FOR VISIT (unrecogniz ed section and content) Reason Comments Med Management Follow-up Reason Comments Routine Visit Reason Comments Routine Visit Well Women Visit STI Screening Care Teams (unrecognized sec tion and content) Front End Software Engineer Relationship Specialty Start Date End Date Med Comer DO [address] [place] [address] PCP - General Family Medicine 07/22/22 Front End Software Engineer Relationship Specialty Start Date End Date Med Comer DO [address] [place] [address] PCP - General Family Medicine 07/22/22 Front End Software Engineer Relationship Specialty Start Date End Date Med Comer DO [address] [place] [address] PCP - General Family Medicine 07/22/22 Front End Software Engineer Relationship Specialty Start Date End Date Med Comer DO [address] [place] [address] PCP - General Family Medicine 07/22/22 Front End Software Engineer Relationship Specialty Start Date End Date Med Comer DO [address] [place] [address] PCP - General Family Medicine 07/22/22 Front End Software Engineer Relationship Specialty Start Date End Date Med Comer DO [address] [place] [address] PCP - General Family Medicine 07/22/22 Front End Software Engineer Relationship Specialty Start Date End Date Med Comer DO [address] [place] [address] PCP - General Family Medicine 07/22/22 Front End Software Engineer Relationship Specialty Start Date End Date Med Comer DO [address] [place] [address] PCP - General Family Medicine 07/22/22 Front End Software Engineer Relationship Specialty Start Date End Date Med Comer DO [address] [place] [address] PCP - General Family Medicine 07/22/22 Front End Software Engineer Relationship Specialty Start Date End Date Med Comer DO [address] [place] [address] PCP - General Family Medicine 07/22/22 Front End Software Engineer Relationship Specialty Start Date End Date Med Comer DO [address] [place] [address] PCP - General Family Medicine 07/22/22 Front End Software Engineer Relationship Specialty Start Date End Date Med Comer DO [address] [place] [address] PCP - General Family Medicine 07/22/22 Front End Software Engineer Relationship Specialty Start Date End Date Med Comer DO [address] [place] [address] PCP - General Family Medicine 07/22/22 Front End Software Engineer Relationship Specialty Start Date End Date Med Comer DO [address] [place] [address] PCP - General Family Medicine 07/22/22 FOR [...] BE BASED ON THE PRIMARY CLINICAL RECORDS. [employer] [facility]. provides no warranty or guarantee of the accuracy or completeness of information in this document.
[2024-03-11 14:46] LABS: BOX Test Reference Lab FIRELANDS; BOX Test Sent Out GROUP B
== END 2024-03-10 17:01 | disposition home or self-care (01) ==
LOC: LAB 17:00
PROVIDERS: PCP Family Medicine; Visit Provider Obstetrics & Gynecology
DX: Z34.93 Encounter for supervision of normal pregnancy, unspecified, third trimester (principal); Z3A.35 35 weeks gestation of pregnancy
CPT/HCPCS: 36415; 87081

== ENCOUNTER 2024-04-07 13:45 | Inpatient (IN) | payer OTHER, SELFPAY ==
[2024-04-07] VITALS (19 sets, daily range): BP systolic 89–124; BP diastolic 53–79; PULSE 78–102; TEMP 36.4–37.3
[2024-04-07] MEDS: 0.9 % SODIUM CHLORIDE 1,000 ML 125 ML IV ×3 (14:57→21:48)
[2024-04-07 15:27] LABS: Hematocrit 34.1 % (36.0-48.0); Hemoglobin 11.2 g/dL (12.0-16.0); Mean Corpuscular HGB Conc 32.8 g/dL (29.9-35.2); Mean Corpuscular Volume 88.3 fL (81.0-99.0); Mean Platelet Volume 8.7 fL (9.5-13.5); Platelet Count 246 10^3/uL (150-450); Red Blood Count 3.86 10^6/uL (4.20-5.40); Red Cell Distribution Width 13.8 % (11.0-15.0)
[2024-04-07 15:48] LABS: Amphetamine Screen Urine NEGATIVE (NEGATIVE); Barbiturates Screen Urine NEGATIVE (NEGATIVE); Benzodiazepines Screen Urine NEGATIVE (NEGATIVE); Buprenorphine Screen Urine NEGATIVE (NEGATIVE); Cannabinoid Screen Urine NEGATIVE (NEGATIVE); Cocaine Screen Urine NEGATIVE (NEGATIVE); Methadone Screen Urine NEGATIVE (NEGATIVE); Methamphetamines Screen Urine NEGATIVE (NEGATIVE); Opiate Screen Urine NEGATIVE (NEGATIVE); Oxycodone Screen Urine NEGATIVE (NEGATIVE); Phencyclidine Screen Urine NEGATIVE (NEGATIVE); Tricyclic Antidepressant Urine NEGATIVE (NEGATIVE)
[2024-04-07] MEDS: OXYTOCIN/0.9 % SODIUM CHLORIDE 10 UNITS/500 ML PLAST..BAG 6 UNIT IV (17:10)
[2024-04-07] MEDS: ROPIVACAINE HCL/PF 400 MG/200 ML PREMIX 6 MG EPIDURAL (21:44)
[2024-04-08] VITALS (16 sets, daily range): BP systolic 78–117; BP diastolic 43–73; PULSE 81–120; TEMP 36
--- NOTE | 2024-04-08 04:14 | PM.OBPRCVD ---
Procedure Intrapartal events: None Induction method: per pitocin protocol Delivery augmentation: rupture of membranes and pitocin Delivery monitor: external FHT and external uterine Route of delivery: Episiotomy Description: none L&D Laceration Description: none Estimated blood loss (mL): 350 Anesthesia type: Epidural Disposition: floor Delivery date: 04/08/24 Gender: male presentation: vertex Placental delivery description: Spontaneous cord description: 3 Vessels and Nuchal Cord
[2024-04-08] MEDS: IBUPROFEN 600 MG TABLET PO ×2 (08:27→16:34)
[2024-04-08] MEDS: GLYCERIN/WITCH HAZEL PADS 1 PAD TOPICAL (08:27)
[2024-04-08] MEDS: BENZOCAINE/MENTHOL 85 GRAM SPRAY BOTTLE 1 APPLIC TOPICAL (08:28)
[2024-04-09 00:08] VITALS: BP 119/70; PULSE 86; TEMP 35.1
--- NOTE | 2024-04-09 00:31 | PC.NURSE ---
0005- Patient calls out requesting nipple shield. Patient states she used one with first child on left side. Nipple shield brought in per patient request. Assisted with latching on left side and ended up removing shield and placing in football hold. Latch obtained. Infant sleepy and reluctant to feed for more than approximately 5 minutes at a time. Infant does frequent short feeds. Reassurance given to mom and encouraged to call out for help with latch.
[2024-04-09 06:46] LABS: Basophils Percent Auto 0.4 % (0.2-2.0); Eosinophils Absolute Auto 0.1 10^3/uL (0.0-0.7); Eosinophils Percent Auto 1.3 % (0.9-7.0); Hematocrit 30.1 % (36.0-48.0); Hemoglobin 9.8 g/dL (12.0-16.0); Immature Granulocytes Abs Auto 0.06 10^3/uL (0.00-0.03); Immature Granulocytes Pct Auto 0.8 % (0.0-0.5); Lymphocytes Absolute Auto 1.7 10^3/uL (1.2-3.8); Mean Corpuscular HGB Conc 32.6 g/dL (29.9-35.2); Mean Corpuscular Hemoglobin 28.8 pg (26.7-34.0); Mean Corpuscular Volume 88.5 fL (81.0-99.0); Mean Platelet Volume 8.8 fL (9.5-13.5); Monocytes Absolute Auto 0.7 10^3/uL (0.3-0.8); Monocytes Percent Auto 8.5 % (1.7-12.0); Neutrophils Absolute Auto 5.4 10^3/uL (1.4-6.5); Platelet Count 203 10^3/uL (150-450); Red Cell Distribution Width 13.6 % (11.0-15.0)
[2024-04-09 08:05] VITALS: BP 112/67; PULSE 71
[2024-04-09 08:06] VITALS: TEMP 36.9
--- NOTE | 2024-04-09 08:45 | PM.OBPN ---
OB - PN: Subj Subjective Narrative: doing well complaining of cough with GI symptoms - has had these symptoms more than 5 days but more symptomatic since delivery Exam Constitutional Vital Signs, click to edit/add: Last Vital Signs Temp 98.4 F 04/09/24 08:06 Pulse 71 04/09/24 08:05 Resp 18 04/09/24 08:06 BP 112/67 04/09/24 08:05 O2 Del Method Room Air 04/09/24 08:09 Common normals: no apparent distress GI Inspection: normal to inspection Other: fundus firm below umbilicus Other: minimal bleeding Neuro Common normals: oriented x3 Psych Common normals: mental status grossly normal Results Labs Labs: Short CBC 04/09/24 Range/Units 06:27 WBC 8.0 (4.0-11.0) 10^3/uL Hgb 9.8 L (12.0-16.0) g/dL Hct 30.1 L (36.0-48.0) % Plt Count 203 (150-450) 10^3/uL OB - PN: A/P Assessment and Plan (1) Term delivered: (2) URI (upper respiratory infection): Plan respiratory panel Gee RAYMOND Z-hawa Plan - Vaginal Delivery day: 1 Plan: routine care Time Spent with Patient Time: Total time spent is greater than 50% in coordination of care (as documented) at patient's floor/unit and/or counseling patient: Total time spent with greater than 50% in coordination of care (as documented) at patient's floor/unit and/or counseling patient: less than 15 minutes
[2024-04-09] MEDS: AZITHROMYCIN 250 MG TABLET 500 MG PO (09:03)
[2024-04-09] MEDS: GUAIFENESIN 200 MG/DEXTROMETHORPHAN 20 MG 10 ML UNIT DOSE CUP PO (09:03)
[2024-04-09 09:24] LABS: Internal Control Within Normal Limits; Strep A Antigen Screen Negative
[2024-04-09 09:24] LABS: Influenza Virus A Antigen Negative; Influenza Virus B Antigen Negative; Internal Control Within Normal Limits; Respiratory Syncytial Virus Not Detected (NOT DETECTE)
[2024-04-09 09:25] LABS: Internal Control Within Normal Limits; SARS-CoV-2 Ag NEGATIVE (NEGATIVE)
== END 2024-04-09 14:45 | disposition home or self-care (01) | DRG 807 ==
PROVIDERS: Obstetrics & Gynecology Gynecology; Admitting Provider Obstetrics & Gynecology; PCP Family Medicine; Visit Provider Obstetrics & Gynecology
DX: O69.81X0 Labor and delivery complicated by cord around neck, without compression, not applicable or unspecified (principal); Z37.0 Single live birth; Z3A.39 39 weeks gestation of pregnancy; O99.513 Diseases of the respiratory system complicating pregnancy, third trimester; J06.9 Acute upper respiratory infection, unspecified; Z87.891 Personal history of nicotine dependence
CPT/HCPCS: 36415; 59050; 59410; 80307; 85025; 85027; 86850; 86900; 86901; 87070; 87420; 87804; 87811; 87880; J2795